=== PATIENT | male | born 1975 | race Caucasian/White ===

== ENCOUNTER 2021-12-13 14:09 | Emergency (ER) | payer SELFPAY ==
--- OUTSIDE RECORDS SUMMARY | 2021-12-13 14:12 | XMS REPORT | Continuity of Care Document ---
:1975 Author Organization [facility] t Address [address] [place] [address] Care Team Providers Name Role Phone Pcp, Does Not Have A Primary Care Physician MARTINEZ Attending Clinician Unavailable Green HEEL SPRAY[employer] FIRST Attending Clinician Doctor Unassigned, Name Attending Clinician Unavailable Problems Condition Condition Condition Status Onset Resolution Last Treating Co mments Source Name Details Category Date Date Treatment Clinician Date No known No known Disease Unive rs active active ity of problems problems [facility] Allergies, Adverse Reactions, Alerts Allergy Allergy Status Severity Reaction(s) Onset Inactive Treating Comm ents Source Name Type Date Date Clinician MUSTARD DRUG Active Anaphylaxis Univ ers INGREDI 5-12 ity of 00:00: [place] 00 Medical Branch Mustard Propensi Active Anaphylaxis Un roz ty to 5-12 ity of adverse 00:00: [place] reaction 00 Medical s Branch Social History Social Habit Start Date Stop Date Quantity Comments Source Exposure to Not sure [facility] SARS-CoV-2 (event) Medica l Branch Sex Assigned At [birth year] [facility] 00:00:00 00:00:00 Medical Branch Smoking Status Start Date Stop Date Source Unknown if ever smoked [facility] Medical Branch Medications Ordered Filled Start Stop Current Ordering Indication Dosage Frequency Signature Comments Components Source Medication Medication Date Date Medication? Clinician (SIG) Name Name ibuprofen Yes 800mg Take 1 Unive rs 800 mg 3-28 tablet by ity of tablet 00:00: mouth [place] 00 every 6 Medical (six) Branch hours as needed for Pain unrelieved by Tylenol or Temp > 38.5 C. cephALEXin 2017-0 Yes 500mg Take 1 Univ ers (KEFLEX) 3-28 capsule by ity o f 500 mg 00:00: mouth 4 [place] capsule 00 (four) Medical times Branch daily. ibuprofen 2017-0 Yes 800mg Take 1 Unive rs 800 mg 3-28 tablet by ity of tablet 00:00: mouth [place] 00 every 6 Medical (six) Branch hours as needed for Pain unrelieved by Tylenol or Temp > 38.5 C. cephALEXin 2017-0 Yes 500mg Take 1 Univ ers (KEFLEX) 3-28 capsule by ity o f 500 mg 00:00: mouth 4 [place] capsule 00 (four) Medical times Branch daily. ibuprofen 2017-0 Yes 600mg Take 1 Unive rs 600 mg 1-28 tablet by ity of tablet 00:00: mouth 3 00 (three) Medical times Branch daily with meals. traMADOL 50 2016-0 Yes 50mg Take 1 Univ ers mg tablet 1-28 tablet by ity o f 00:00: mouth [place] 00 every 6 Medical (six) Branch hours as needed for Pain (scale 4-6). ibuprofen 2017-0 Yes 600mg Take 1 Unive rs 600 mg 1-28 tablet by ity of tablet 00:00: mouth 3 [place] 00 (three) Medical times Branch daily with meals. traMADOL 50 2016-0 Yes 50mg Take 1 Univ ers mg tablet 1-28 tablet by ity o f 00:00: mouth [place] 00 every 6 Medical (six) Branch hours as needed for Pain (scale 4-6). Vital Signs Vital Name Observation Time Observation Value Comments Source Systolic blood 2021-11-03 02:38:00 135 mm[Hg] Univer sity [facility] Diastolic blood 2021-11-03 02:38:00 80 mm[Hg] Unive rsity [facility] Heart rate 2021-11-03 02:38:00 90 /min [facility] Body temperature 2021-11-03 02:38:00 36.61 Farzana [facility] Respiratory rate 2021-11-03 02:38:00 20 /min [facility] Body height 2021-11-03 02:38:00 180.3 cm [facility] Body weight 2021-11-03 02:38:00 94.394 kg Universi [facility] BMI 2021-11-03 02:38:00 29.02 kg/m2 [facility] Oxygen saturation in 2021-11-03 02:38:00 99 /min [facility] Arterial blood by [facility] [place] [place] Pulse oximetry [place] Procedures Procedure Date / Time Performed Performing Clinician Chris rose POCT RAPID FLU A AND 2021-11-03 02:40:00 Chelsea Gray [facility] B TEST [facility] CONSENT/REFUSAL FOR 2021-11-03 02:28:35 Doctor Unassigned, No Un [facility] DIAGNOSIS AND Name [facility] TREATMENT Encounters Start End Encounter Admission Attending Care Care Encounter Source Date/Time Date/Time Type Type Clinicians Facility Department ID 2021-11-02 2021-11-02 Outpatient R MARTINEZ [facility] [id number] Univers 20:40:00 20:53:44 CHELSEA ity [facility] [place] [facility] 2021-11-02 2021-11-02 Urgent Martinez [facility] [id number] Univers 20:29:16 20:53:44 Care [facility] [id number] it y of [place] [id number] Agustin as DAO?BLEA [phone] [address] MEDICAL OFFICE BUILDING 2021-11-02 2021-11-02 Orders Doctor MARGUERITE [id number] Univers 00:00:00 00:00:00 Only Unassigned, [place]ANT[place] [id number] ity of [place] [facility] [id number] Agustin as [phone] [facility] 009 Branch Results Test Description Test Time Test Comments Results Result Comments Source POCT RAPID FLU A AND B TEST 2021-11-03 02:53:00 Test Item Value Reference Range Interpretation Comme nts POCT INFLUENZA A (test code = negative Negative - Negative 3840) POCT INFLUENZA B (test code = negative Negative - Negative 3841) SAHRA (test code = SAHRA) accurate development and interpretation of all internal controls Lab Interpretation (test code = Normal 16420-3) [facility]
--- NOTE | 2021-12-13 17:35 | RAD REPORT ---
EXAM DESCRIPTION: CT - Head Brain Wo Cont - 12/13/2021 5:26 pm CLINICAL HISTORY: head injury, steel press hit head, dizzy COMPARISON: No comparisons TECHNIQUE: All CT scans are performed using dose optimization technique as appropriate and may inclu de automated exposure control or mA/KV adjustment according to patient size. FINDINGS: No intracranial hemorrhage, hydrocephalus or extra-axial fluid collection.No areas of brai n edema or evidence of midline shift. The paranasal sinuses and mastoids are clear. The calvarium is intact. IMPRESSION: No acute intracranial abnormality.
--- NOTE | 2021-12-13 17:38 | ER ---
Nurse's Notes [facility] Name: Brian Dent Age: 45 yrs Sex: Male : 1975 Arrival Date: 12/13/2021 Time: 14:15 Bed 11 Private MD: Diagnosis: Unspecified injury of head, initial encounter Presentation: 12/13 14:35 Chief complaint: Patient states: approx 1 hour ago pt was at work and a stainless steal jh5 burger press fell on his head; pt has reddened scratch to forehead that does not extend into hairline. Pt states after the incident he became lightheaded and blurred vision that has since resolved; however pt endorses headache. Pt is aaox4, ambulatory without assistance, color is appropriate, speech is clear, respirations even and unlabored. Pt has no bleeding at this time. Coronavirus screen: Vaccine status: Patient reports being unvaccinated. doesn't believe in it Client denies travel out of the [place] in the last 14 days. At this time, the client does not indicate any symptoms associated with coronavirus-19. Ebola Screen: Patient negative for fever greater than or equal to 101.5 degrees Fahrenheit, and additional compatible Ebola Virus Disease symptoms Patient denies exposure to infectious person. Patient denies travel to an Ebola-affected area in the 21 days before illness onset. Mechanism of Injury: resulted from burger press came off shelf down onto patients head; controlled due to patient trying to get the press down himself. . Initial Sepsis Screen: Does the patient meet any 2 criteria? No. Patient's initial sepsis screen is negative. Does the patient have a suspected source of infection? No. Patient's initial sepsis screen is negative. Risk Assessment: Do you want to hurt yourself or someone else? Patient reports no desire to harm self or others. Onset of symptoms was December 13, 2021. 14:35 Method Of Arrival: Ambulatory [facility] 14:35 Acuity: JACQUIE 3 jh5 Triage Assessment: 14:39 General: Appears in no apparent distress. uncomfortable, unkempt, well developed, well jh5 nourished, Behavior is calm, cooperative, appropriate for age. Pain: Complains of pain in forehead, headache. Neuro: Level of Consciousness is awake, alert, obeys commands, Oriented to person, place, time, situation, Appropriate for age Moves all extremities. Full function Gait is steady, Speech is normal, Facial symmetry appears normal, Pupils are PERRLA, Reports blurred vision headache. Historical: - Allergies: 14:39 No Known Allergies; [facility] - PMHx: 14:39 Myocardial infarction; Hypertensive disorder; [facility] - Immunization history:: Adult Immunizations up to date. - Social history:: Smoking status: Patient reports the use of cigarette tobacco products, smokes one-half pack cigarettes per day. - Family history:: not pertinent. - Hospitalizations: : No recent hospitalization is reported. Screenin:41 Abuse screen: Denies threats or abuse. Denies injuries from another. Nutritional [facility] screening: No deficits noted. Tuberculosis screening: No symptoms or risk factors identified. Fall Risk None identified. Assessment: 17:13 General: Appears in no apparent distress. comfortable, Behavior is calm, cooperative, ld1 appropriate for age. Pain: Complains of pain in forehead Pain does not radiate. Pain currently is 8 out of 10 on a pain scale. Quality of pain is described as throbbing, Pain began suddenly, Is continuous. Neuro: Level of Consciousness is awake, alert, obeys commands, Oriented to person, place, time, situation. Cardiovascular: Capillary refill < 3 seconds Patient's skin is warm and dry. Respiratory: Airway is patent Respiratory effort is even, unlabored, Respiratory pattern is regular, symmetrical. GI: Abdomen is flat, non-distended. : No signs and/or symptoms were reported regarding the genitourinary system. EENT: No signs and/or symptoms were reported regarding the EENT system. Derm: No signs and/or symptoms reported regarding the dermatologic system. Musculoskeletal: No signs and/or symptoms reported regarding the musculoskeletal system. Vital Signs: 14:35 BP 134 / 91; Pulse 81; Resp 18; Temp 97.6; Pulse Ox 100% ; Weight 99.79 kg; Height 5 [facility] ft. 11 in. (180.34 cm); Pain 5/10; 17:13 BP 132 / 89; Pulse 86; Resp 18; Pulse Ox 100% on R/A; Pain 8/10; ld1 14:35 Body Mass Index 30.68 (99.79 kg, 180.34 cm) [facility] Mark Coma Score: 14:35 Eye Response: spontaneous(4). Verbal Response: oriented(5). Motor Response: obeys jh5 commands(6). Total: 15. 16:39 Eye Response: spontaneous(4). Verbal Response: oriented(5). Motor Response: obeys rn commands(6). Total: 15. 17:36 Eye Response: spontaneous(4). Verbal Response: oriented(5). Motor Response: obeys rn commands(6). Total: 15. ED Course: 14:15 Patient arrived in ED. as 14:39 Triage completed. jh5 14:41 Arm band placed on right wrist. jh5 16:24 Mitch Teague MD is Attending Physician. rn 17:13 Ina Crystal, RN is Primary Nurse. ld1 17:13 Patient has correct armband on for positive identification. Placed in gown. Bed in low ld1 position. Call light in reach. Side rails up X2. potline monitor on. Pulse ox on. NIBP on. Door closed. Noise minimized. Warm blanket given. 17:13 No provider procedures requiring assistance completed. ld1 17:26 CT Head Brain wo Cont In Process Unspecified. EDMS 17:47 Patient did not have IV access during this emergency room visit. ld1 Administered Medications: No medications were administered Outcome: 17:37 Discharge ordered by . rn 17:47 Discharged to home ambulatory. ld1 17:47 Condition: stable 17:47 Discharge instructions given to patient, Instructed on discharge instructions, follow up and referral plans. Demonstrated understanding of instructions, follow-up care. 17:47 Patient left the ED. ld1 Signatures: Dispatcher [employer] EDNJ Era Salas Roman, MD MD rn Dibbern, Lauren, RN RN ld1 Geeta Ross, DINAH RN jh5
--- NOTE | 2021-12-13 17:38 | EDPHYS ---
Physician Documentation [facility] Name: Brian Dent Age: 45 yrs Sex: Male : 1975 Arrival Date: 12/13/2021 Time: 14:15 Bed 11 Private MD: ED Physician Mitch Teague HPI: 12/13 16:39 This 45 yrs old Male presents to ER via Ambulatory with complaints of Closed Head rn Injury-Adult, Dizziness, Vision Problem. 16:39 The patient or guardian reports injury, pain. The complaints affect the top of head. rn Context of injury: The problem was sustained at work, resulted from a direct blow, a heavy object. Onset: The symptoms/episode began/occurred 3 hour(s) ago. Associated signs and symptoms: Loss of consciousness: This patient did not experience any loss of consciousness. Pertinent positives: dazed, headache, Pertinent negatives: patient denies any alcohol consumption, incontinence, neck pain, vomiting. Severity of symptoms: At their worst the symptoms were moderate, in the emergency department the symptoms have improved. The patient has not experienced similar symptoms in the past. The patient has not recently seen a physician. Patient reports at work, reaching for steel Press above his head on a shelf, fell directly onto head, reports headache and dizziness. States he felt dazed. No vomiting. No seizure. No loss of consciousness.. Historical: - Allergies: 14:39 No Known Allergies; jh5 - PMHx: 14:39 Myocardial infarction; Hypertensive disorder; jh5 - Immunization history:: Adult Immunizations up to date. - Social history:: Smoking status: Patient reports the use of cigarette tobacco products, smokes one-half pack cigarettes per day. - Family history:: not pertinent. - Hospitalizations: : No recent hospitalization is reported. ROS: 16:39 Constitutional: Negative for fever, chills, and weight loss, Eyes: Negative for injury, rn pain, redness, and discharge, ENT: Negative for injury, pain, and discharge, Neck: Negative for injury, pain, and swelling, Cardiovascular: Negative for chest pain, palpitations, and edema, Respiratory: Negative for shortness of breath, cough, wheezing, and pleuritic chest pain, Abdomen/GI: Negative for abdominal pain, nausea, vomiting, diarrhea, and constipation, MS/Extremity: Negative for injury and deformity, Skin: Negative for injury, rash, and discoloration, Neuro: Positive for headache and dizziness Exam: 16:39 Constitutional: This is a well developed, well nourished patient who is awake, alert, rn and in no acute distress. Head/Face: Normocephalic, small abrasion and contusion along the hairline mid forehead. No laceration. No skull depression. No active bleeding. Eyes: Pupils equal round and reactive to light, extra-ocular motions intact. Lids and lashes normal. Periorbital areas with no swelling, redness, or edema. Neuro: Awake and alert, GCS 15, oriented to person, place, time, and situation. Cranial nerves II-XII grossly intact. Motor strength 5/5 in all extremities. Sensory grossly intact. Cerebellar exam normal. Normal gait. Vital Signs: 14:35 BP 134 / 91; Pulse 81; Resp 18; Temp 97.6; Pulse Ox 100% ; Weight 99.79 kg; Height 5 jh5 ft. 11 in. (180.34 cm); Pain 5/10; 17:13 BP 132 / 89; Pulse 86; Resp 18; Pulse Ox 100% on R/A; Pain 8/10; ld1 14:35 Body Mass Index 30.68 (99.79 kg, 180.34 cm) jh5 Howe Coma Score: 14:35 Eye Response: spontaneous(4). Verbal Response: oriented(5). Motor Response: obeys jh5 commands(6). Total: 15. 16:39 Eye Response: spontaneous(4). Verbal Response: oriented(5). Motor Response: obeys rn commands(6). Total: 15. 17:36 Eye Response: spontaneous(4). Verbal Response: oriented(5). Motor Response: obeys rn commands(6). Total: 15. MDM: 16:24 Patient medically screened. rn 17:36 Differential diagnosis: Contusion of Hematoma on Intracranial bleed- Concussion rn cerebral contusion. Data reviewed: vital signs, nurses notes, radiologic studies, CT scan, and as a result, I will discharge patient. Counseling: I had a detailed discussion with the patient and/or guardian regarding: the historical points, exam findings, and any diagnostic results supporting the discharge/admit diagnosis, radiology results, the need for outpatient follow up, to return to the emergency department if symptoms worsen or persist or if there are any questions or concerns that arise at home. Special discussion: Based on the patient's history, exam and DX evaluation, there is no indication for emergent intervention or inpatient [place]. It is understood by the patient/guardian that if the SXs persist or worsen they need to return immediately for re-evaluation. I discussed with the patient/guardian in detail that at this point there is no indication for admission to the hospital. It is understood, however, that if the symptoms persist or worsen the patient needs to return immediately for re-evaluation. ED course: CT head negative for acute finding. Sent home with return precautions.. 12/13 16:38 Order name: CT Head Brain wo Cont; Complete Time: 17:36 rn Administered Medications: No medications were administered Disposition Summary: 12/13/21 17:37 Discharge Ordered Location: Home rn Problem: new rn Symptoms: have improved rn Condition: Stable rn Diagnosis - Unspecified injury of head, initial encounter rn Followup: rn - With: Private Physician - When: As needed - Reason: Recheck today's complaints, Re-evaluation by your physician Discharge Instructions: - Discharge Summary Sheet rn - Concussion, Adult rn - Head Injury, Adult rn Forms: - Medication Reconciliation Form rn - Thank You Letter rn - Antibiotic technology internship - Prescription Opioid Use rn Signatures: Dispatcher [employer] Mitch Sesay MD MD rn Rees, Jessica RN RN jh5
[2021-12-13 18:05] VITALS: TEMP 97.6; O2SAT 100
[2021-12-13 18:06] VITALS: BP 132/89
== END 2021-12-13 17:47 | disposition home or self-care (01) ==
LOC: ER 14:09
DX: S09.90XA Unspecified injury of head, initial encounter (principal); W22.8XXA Striking against or struck by other objects, initial encounter; Y92.89 Other specified places as the place of occurrence of the external cause; Y99.8 Other external cause status; I10 Essential (primary) hypertension; F17.210 Nicotine dependence, cigarettes, uncomplicated
CPT/HCPCS: 70450; 99284

== ENCOUNTER 2022-01-28 10:25 | Emergency (ER) | payer SELFPAY ==
--- OUTSIDE RECORDS SUMMARY | 2022-01-28 10:27 | XMS REPORT | Continuity of Care Document ---
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 Doctor Unassigned, Name Attending Clinician Unavailable Problems Condition Condition Condition Status Onset Resolution Last Treating Co mments Source Name Details Category Date Date Treatment Clinician Date No known No known Disease Unive rs active active ity of problems problems [facility] Allergies, Adverse Reactions, Alerts Allergy Allergy Status [...] Quantity Comments Source Exposure to Not sure [facility] SARS-CoV-2 (event) Medica l Branch Sex Assigned At [birth year] [facility] 00:00:00 00:00:00 Medical Branch Smoking Status Start Date Stop Date Source Unknown if ever smoked [facility] Medications Ordered Filled Start Stop Current Ordering Indication Dosage Frequency Signature Comments Components Source Medication Medication Date Date Medication? Clinician (SIG) Name Name ibuprofen Yes 800mg Take 1 Unive rs 800 mg 3-28 tablet by ity of tablet 00:00: mouth [place] 00 every 6 Medical (six) Branch hours as needed for Pain unrelieved by Tylenol or Temp > 38.5 C. cephALEXin Yes 500mg Take 1 Univ ers (KEFLEX) [...] as needed for Pain (scale 4-6). ibuprofen 2016-0 Yes 600mg Take 1 Unive rs 600 [...] blood 2021-11-03 02:38:00 135 mm[Hg] Univer sity [facility] Diastolic blood 2021-11-03 02:38:00 80 mm[Hg] [facility] Heart rate 2021-11-03 02:38:00 90 /min [facility] Body temperature 2021-11-03 02:38:00 36.61 Farzana [facility] Respiratory rate 2021-11-03 02:38:00 20 /min [facility] Body height 2021-11-03 02:38:00 180.3 cm [facility] Body weight 2021-11-03 02:38:00 94.394 kg [facility] BMI 2021-11-03 02:38:00 29.02 kg/m2 [facility] Oxygen saturation in 2021-11-03 02:38:00 99 /min University Arterial blood by [facility] Pulse oximetry [place] Procedures Procedure Date / Time Performed Performing Clinician Chris e POCT RAPID FLU A AND 2021-11-03 02:40:00 MartinezChelsea [facility] ity [facility] CONSENT/REFUSAL FOR 2021-11-03 02:28:35 Doctor Unassigned, No Un [facility] DIAGNOSIS AND Name Medical Branch TREATMENT Encounters Start End Encounter Admission Attending Care Care Encounter Source Date/Time Date/Time Type Type Clinicians Facility Department ID 2021-11-02 2021-11-02 Outpatient R MARTINEZ [facility] [id number] Univers 20:40:00 20:53:44 CHELSEA ity [facility] 2021-11-02 2021-11-02 Urgent Martinez [facility] [id number] Univers 20:29:16 20:53:44 Care [facility] [id number] it y of [place] [id number] Agustin as DAO?BLEA [id number] Mt dical [address] MEDICAL OFFICE BUILDING 2021-11-02 2021-11-02 Orders Doctor MARGUERITE [id number] Univers 00:00:00 00:00:00 Only Unassigned, SANTA [id number] ity of [place] [facility] [id number] Agustin as [id number] [facility] 009 Branch Results Test Description Test [...] controls Lab Interpretation (test code = Normal 53536-5) [facility]
[2022-01-28] MEDS ORDERED: LIDOCAINE 1% MPF 30 ML VIAL ONE (10:47)
[2022-01-28] MEDS ORDERED: TETANUS & DIPHTHERIA TOX,ADULT 0.5 ML VIAL ONE (10:48)
--- NOTE | 2022-01-28 11:42 | ER ---
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 Coronavirus screen: Vaccine status: Patient reports being unvaccinated. Client denies travel out of the [place] in the last 14 days. At this time, the client does not indicate any symptoms associated with coronavirus-19. Ebola Screen: Patient denies travel to an Ebola-affected area in the 21 days before illness onset. Initial Sepsis Screen: Does the patient meet any 2 criteria? No. Patient's initial sepsis screen is negative. Does the patient have a suspected source of infection? Yes: Skin breakdown/wound. Risk Assessment: Do you want to hurt yourself or someone else? Patient reports no desire to harm self or others. Onset of symptoms was January 28, 2022. 10:36 Method Of Arrival: Ambulatory ll1 10:36 Acuity: JACQUIE 4 ll1 Triage Assessment: 10:35 General: Appears uncomfortable, Behavior is calm, cooperative, appropriate for age. ll1 Pain: Complains of pain in L thumb Quality of pain is described as aching, throbbing. Neuro: No deficits noted. Cardiovascular: No deficits noted. Respiratory: No deficits noted. Derm: Reports laceration L thumb. Historical: - Allergies: 10:35 Ibuprofen; ll1 10:35 Mustard; ll1 - PMHx: 10:35 Hypertensive disorder; Myocardial infarction; Hypercholesterolemia; heart condition; ll1 - PSHx: 10:35 Appendectomy; ll1 - Immunization history:: Client reports having NOT received the Covid vaccine. Last tetanus immunization: unknown. - Social history:: Smoking status: Patient reports the use of cigarette tobacco products, smokes one-half pack cigarettes per day. Screenin:11 Abuse screen: Denies threats or abuse. Denies injuries from another. Nutritional eo2 screening: No deficits noted. Tuberculosis screening: No symptoms or risk factors identified. Fall Risk None identified. Assessment: 11:07 General: Appears in no apparent distress. comfortable, Behavior is calm, cooperative. eo2 Pain: Complains of pain in left hand and dorsal aspect of proximal phalanx of left thumb. Neuro: Level of Consciousness is awake, alert, obeys commands, Oriented to person, place, time, situation, Denies dizziness, headache. Cardiovascular: No deficits noted. Reports Capillary refill < 3 seconds. Respiratory: No deficits noted. Airway is patent Trachea midline Respiratory effort is even, unlabored, Respiratory pattern is regular, symmetrical, Breath sounds are clear bilaterally. Derm: Wound noted Other: Laceration to left thumb Reports. Musculoskeletal: Circulation, motion, and sensation intact. Reports pain in left thumb. Vital Signs: 10:36 BP 172 / 77; Pulse 97; Resp 17; Temp 97.9; Pulse Ox 97% on R/A; Weight 97.52 kg; Height ll1 5 ft. 11 in. (180.34 cm); Pain 10/10; 11:10 BP 152 / 94; Pulse 82; Resp 15; Pulse Ox 97% ; Pain 10/10; eo2 10:36 Body Mass Index 29.99 (97.52 kg, 180.34 cm) ll1 ED Course: 10:26 Patient arrived in ED. ds1 10:28 Pernell Rinaldi MD is Attending Physician. jr11 10:28 Arm band placed on Patient placed in an exam room, on a stretcher. ll1 10:37 Triage completed. ll1 10:40 Jes Abrams RN is Primary Nurse. eo2 11:11 Patient has correct armband on for positive identification. Pulse ox on. NIBP on. Door eo2 closed. Noise minimized. 11:11 No provider procedures requiring assistance completed. Patient did not have IV access eo2 during this emergency room visit. 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 Exp: eo2 04/21/2023. Lot #: [id number]. } Route: IM; Site: left deltoid; 11:39 Follow up: Response: No adverse reaction eo2 Outcome: 11:34 Discharge ordered by . jrSandie 11:41 Discharged to home ambulatory. eo2 11:41 Condition: stable 11:41 Discharge instructions given to patient, Instructed on discharge instructions, follow up and referral plans. medication usage, Demonstrated understanding of instructions, follow-up care, medications, Prescriptions given X 1. 11:42 Patient left the ED. eo2 Signatures: Regla Amador ds1 Chon Blackwell RN RN ll1 Jes Abrams RN RN eo2 Pernell Rinaldi MD MD jr11
--- NOTE | 2022-01-28 11:42 | EDPHYS ---
Physician Documentation [facility] Name: Brian Dent Age: 46 yrs Sex: Male : 1975 Arrival Date: 01/28/2022 Time: 10:26 Bed 17 Private MD: ED Physician Pernell Rinaldi HPI: 01/28 10:37 This 46 yrs old Male presents to ER via Unassigned with complaints of Finger Laceration.jr11 10:37 This 46 yrs old Male presents to ER via Ambulatory with complaints of Finger Laceration.jr11 10:37 The patient has a laceration related to:. The laceration(s) is(are) located on the jr11 dorsal aspect of proximal phalanx of left thumb. Onset: The symptoms/episode began/occurred just prior to arrival. Associated signs and symptoms: The patient has no apparent associated signs or symptoms. Pt at work cut his thumb with knife, unknown tetanus . Historical: - Allergies: 10:35 Ibuprofen; ll1 10:35 Mustard; ll1 - PMHx: 10:35 Hypertensive disorder; Myocardial infarction; Hypercholesterolemia; heart condition; ll1 - PSHx: 10:35 Appendectomy; ll1 - Immunization history:: Client reports having NOT received the Covid vaccine. Last tetanus immunization: unknown. - Social history:: Smoking status: Patient reports the use of cigarette tobacco products, smokes one-half pack cigarettes per day. ROS: 10:37 Constitutional: Negative for fever, chills Eyes: Negative for injury, pain, redness, jr11 and discharge, ENT: Negative for injury, pain, and discharge, Neck: Negative for injury, pain, and swelling, Cardiovascular: Negative for chest pain, palpitations, and edema, Respiratory: Negative for shortness of breath, cough Abdomen/GI: Negative for abdominal pain, nausea, vomiting Back: Negative for injury and pain, MS/Extremity: Negative for injury and deformity. 10:37 Skin: Positive for laceration(s), Negative for abrasions, burn. Exam: 10:37 Constitutional: This is a well developed, well nourished patient who is awake, alert, jr11 and in no acute distress. Head/Face: Normocephalic, atraumatic. Eyes: Extra-ocular motions intact. Lids and lashes normal. Conjunctiva and sclera are non-icteric and not injected. Cornea within normal limits. Periorbital areas with no swelling, redness, or edema. ENT: Nares patent. No nasal discharge, no septal abnormalities noted. Oropharynx with no redness, swelling, or masses, exudates, or evidence of obstruction, uvula midline. Mucous membranes moist. Neck: Trachea midline, no thyromegaly or masses palpated, and no cervical lymphadenopathy. Supple, full range of motion without nuchal rigidity, or vertebral point tenderness. No Meningismus. Chest/axilla: Normal chest wall appearance and motion. Nontender with no deformity. No lesions are appreciated. Cardiovascular: Regular rate and rhythm with a normal S1 and S2. No gallops, murmurs, or rubs. Normal PMI, no JVD. No pulse deficits. Respiratory: Lungs have equal breath sounds bilaterally, clear to auscultation and percussion. No rales, rhonchi or wheezes noted. No increased work of breathing, no retractions or nasal flaring. Abdomen/GI: Soft, non-tender, with normal bowel sounds. No distension or tympany. No guarding or rebound. No evidence of tenderness throughout. 10:37 Skin: 3.5cm superficial laceration dorsum L thumb, FROM, N/V intact . Vital Signs: 10:36 BP 172 / 77; Pulse 97; Resp 17; Temp 97.9; Pulse Ox 97% on R/A; Weight 97.52 kg; Height ll1 5 ft. 11 in. (180.34 cm); Pain 10/10; 11:10 BP 152 / 94; Pulse 82; Resp 15; Pulse Ox 97% ; Pain 10/10; eo2 10:36 Body Mass Index 29.99 (97.52 kg, 180.34 cm) ll1 Laceration: 10:37 Wound Repair of 3.5cm ( 1.4in ) subcutaneous laceration to dorsal aspect of proximal jr11 phalanx of left thumb. Distal neuro/vascular/tendon intact. Wound prep: Simple cleansing. Skin closed with 4-0 Prolene using simple sutures and sterile technique. Skin closed with 4 1-0 Prolene using simple sutures and sterile technique. Dressed with 4x4's. Patient tolerated well. MDM: 10:34 Patient medically screened. jr11 10:37 Differential diagnosis: superficial laceration. Data reviewed: vital signs, nurses jr11 notes. ED course: tetanus updated, lac repair, strong return precautions . 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 Exp: eo2 04/21/2023. Lot #: [id number]. } Route: IM; Site: left deltoid; 11:39 Follow up: Response: No adverse reaction eo2 Disposition Summary: 01/28/22 11:34 Discharge Ordered Location: Home [facility] Condition: Stable [facility] Diagnosis - Hand Laceration/ Open wound of hand jr11 Followup: jr - With: Private Physician - When: 7 - 10 days - Reason: for suture removal Discharge Instructions: - Discharge Summary Sheet 11 - Laceration Care, Adult [facility] Forms: - Medication Reconciliation Form 11 - Thank You Letter jr11 - Antibiotic Education 11 - Prescription Opioid Use [facility] Prescriptions: - Cephalexin 500 mg Oral Capsule - take 1 capsule by ORAL route every 8 hours for 10 days; 30 capsule; Refills: 0, jr11 Product Selection Permitted Signatures: Chon Blackwell RN RN ll1 Jes Abrams RN RN eo2 Pernell Rinaldi MD MD jr11 Corrections: (The following items were deleted from the chart) 11:32 10:37 Wound Repair of 3.5cm ( 1.4in ) subcutaneous laceration to dorsal aspect of jr11 proximal phalanx of left thumb. Distal neuro/vascular/tendon intact. Anesthesia: Local anesthetic administered with 1% lidocaine. Wound prep: Simple cleansing. Skin closed with 4-0 Prolene using simple sutures and sterile technique. Dressed with 4x4's. Patient tolerated well. 11
[2022-01-28 11:56] VITALS: TEMP 97.9; O2SAT 97
[2022-01-28 11:58] VITALS: BP 152/94
== END 2022-01-28 11:42 | disposition home or self-care (01) ==
LOC: ER 10:25
PROC: 0JQK0ZZ Repair Left Hand Subcutaneous Tissue and Fascia, Open Approach (ICD-10-PCS; principal; 2022-01-28)
DX: S61.012A Laceration without foreign body of left thumb without damage to nail, initial encounter (principal); W26.0XXA Contact with knife, initial encounter; Y92.89 Other specified places as the place of occurrence of the external cause; Y99.8 Other external cause status; F17.210 Nicotine dependence, cigarettes, uncomplicated; Z23 Encounter for immunization; Z88.6 Allergy status to analgesic agent; Z91.018 Allergy to other foods
CPT/HCPCS: 90471; 90714; 99283

== ENCOUNTER 2022-03-06 16:18 | Emergency (ER) | payer SELFPAY ==
--- OUTSIDE RECORDS SUMMARY | 2022-03-06 16:21 | XMS REPORT | Continuity of Care Document ---
:1975 Author Organization [facility] t Address [address] [place] [address] Care Team Providers Name Role Phone Pcp, Does Not Have A Primary Care Physician MARTINEZ Attending Clinician Unavailable Martinez DIRECTOR OF CODING Attending Clinician Doctor Unassigned, Name Attending Clinician Unavailable Problems Condition Condition Condition Status Onset Resolution Last Treating Co mments Source Name Details Category Date Date Treatment Clinician Date No known No known Disease Unive rs active active ity of problems problems [facility] Allergies, Adverse Reactions, Alerts Allergy Allergy Status [...] Quantity Comments Source Exposure to Not sure [facility] SARS-CoV-2 (event) Medica l Branch Sex Assigned At [birth year] [facility] 00:00:00 00:00:00 Medical Branch Smoking Status Start Date Stop Date Source Unknown if ever smoked [facility] Medications Ordered Filled Start Stop Current Ordering Indication Dosage Frequency Signature Comments Components Source Medication Medication Date Date Medication? Clinician (SIG) Name Name ibuprofen Yes 800mg Take 1 Unive rs 800 mg 3-28 tablet by ity of tablet 00:00: mouth [place] 00 every 6 Medical (six) Branch hours [...] blood 2021-11-03 02:38:00 135 mm[Hg] Univer sity [facility] Diastolic blood 2021-11-03 02:38:00 80 mm[Hg[facility] Heart rate 2021-11-03 02:38:00 90 /min [facility] Body temperature 2021-11-03 02:38:00 36.61 Farzana [facility] Respiratory rate 2021-11-03 02:38:00 20 /min [facility] Body height 2021-11-03 02:38:00 180.3 cm [facility] Body weight 2021-11-03 02:38:00 94.394 kg [facility] BMI 2021-11-03 02:38:00 29.02 kg/m2 [facility] Oxygen saturation in 2021-11-03 02:38:00 99 /min [facility] Arterial blood by [facility] Pulse oximetry [place] Procedures Procedure Date / Time Performed Performing Clinician Chris e POCT RAPID FLU A AND 2021-11-03 02:40:00 [facility] ity [facility] B [facility] CONSENT/REFUSAL FOR 2021-11-03 02:28:35 Doctor Unassigned, No Un [facility] DIAGNOSIS AND Name Medical Branch TREATMENT Encounters Start End Encounter Admission Attending Care Care Encounter Source Date/Time Date/Time Type Type Clinicians Facility Department ID 2021-11-02 2021-11-02 Outpatient R MARTINEZ [facility] [id number] [facility] 20:40:00 20:53:44 CHELSEA ity [facility] 2021-11-02 2021-11-02 Urgent Martinez [facility] [id number] Univers 20:29:16 20:53:44 Care [facility] [id number] it y of [place] [id number] Agustin as DAO?BLEA [phone] Nm dical [address] MEDICAL OFFICE BUILDING 2021-11-02 2021-11-02 Orders Doctor MARGUERITE [id number] Univers 00:00:00 00:00:00 Only Unassigned, [place] [id number] ity of [facility] [id number] Agustin as [phone] [facility] 009 Branch Results Test Description Test Time [...] controls Lab Interpretation (test code = Normal 40158-3) [facility]
[2022-03-06] MEDS ORDERED: MORPHINE 4 MG/ML SYR ONE (17:08)
[2022-03-06] MEDS ORDERED: NA CHLORIDE 0.9% 1,000 ML ONE (17:09)
[2022-03-06] MEDS ORDERED: FAMOTIDINE 20 MG/2 ML VIAL IV ONE (17:09)
[2022-03-06] MEDS ORDERED: ONDANSETRON 4 MG/2 ML VIAL ONE (17:09)
[2022-03-06 17:17] LABS: Absolute Lymphocytes (CBC) 3.6 K/uL (0.7-4.9); Hematocrit 45.4 % (39.6-49.0); Lymphocytes % 27.3 % (15.3-44.8); MPV 9.8 fL (7.6-11.3); RBC Red Blood Cell Count 5.04 M/uL (4.33-5.43)
[2022-03-06 17:34] LABS: ALT/SGPT 22 U/L (12-78); AST/SGOT 11 U/L (15-37); Albumin 3.4 g/dL (3.4-5.0); Alkaline Phosphatase 95 U/L (45-117); BUN Blood Urea Nitrogen 17 mg/dL (7-18); Bicarbonate 23 mmol/L (21-32); Bilirubin Total 0.2 mg/dL (0.2-1.0); Glucose Level 103 mg/dL (74-106); Lipase 119 U/L (73-393); Potassium 3.6 mmol/L (3.5-5.1); Protein, Total 7.1 g/dL (6.4-8.2); Sodium Level 139 mmol/L (136-145)
--- NOTE | 2022-03-06 17:34 | RAD REPORT ---
EXAM DESCRIPTION: US - Abdomen Exam Limited - 03/06/2022 5:26 pm CLINICAL HISTORY: EPIGASTRIC PAIN COMPARISON: No comparisons FINDINGS: The gallbladder demonstrates no gallstones. No pericholecystic fluid or gallbladder wall t hickening. The common bile duct is normal measuring 2 mm. The liver demonstrates no findings of intrahepatic biliary dilatation. IMPRESSION: Unremarkable examination.
--- NOTE | 2022-03-06 18:03 | RAD REPORT ---
EXAM DESCRIPTION: CTAbdomen Pelvis W Contrast - 03/06/2022 5:51 pm CLINICAL HISTORY: Abdominal pain. ABD PAIN COMPARISON: No comparisons TECHNIQUE: Biphasic CT imaging of the abdomen and pelvis was performed with 100 ml non-ionic IV cont rast. All CT scans are performed using dose optimization technique as appropriate and may include automated exposure control or mA/KV adjustment according to patient size. FINDINGS: The lung bases are clear. The liver, spleen, pancreas, adrenal glands and kidneys are within normal limits. No bowel obstruction, free air, free fluid or abscess. Appendectomy. No evidence of significant lym phadenopathy. No suspicious bony findings. IMPRESSION: No acute intra-abdominal or pelvic finding.
[2022-03-06] MEDS ORDERED: LIDOCAINE 1% W/EPI 1:100,000 MDV 50 ML VIAL ONE (18:27)
[2022-03-06] MEDS ORDERED: MAGNES/ALUMIN/SIMET 30ML UCUP ONE (18:27)
--- NOTE | 2022-03-06 18:41 | ER ---
Nurse's Notes [facility] Name: Brian Dent Age: 46 yrs Sex: Male : 1975 Arrival Date: 03/06/2022 Time: 16:19 Bed 8 Private MD: Diagnosis: Abdominal pain, unspecified Presentation: 03/06 16:45 Chief complaint: Patient states: he has been having abdominal pain for approx one ap3 month. Patient states the pain gets worse after he eats. Patient denies nausea and vomiting but reports diarrhea. Coronavirus screen: At this time, the client does not indicate any symptoms associated with coronavirus-19. Ebola Screen: No symptoms or risks identified at this time. Initial Sepsis Screen: Does the patient meet any 2 criteria? No. Patient's initial sepsis screen is negative. Does the patient have a suspected source of infection? No. Patient's initial sepsis screen is negative. Risk Assessment: Do you want to hurt yourself or someone else? Patient reports no desire to harm self or others. Onset of symptoms was February 03, 2022. 16:45 Method Of Arrival: Ambulatory ap3 16:45 Acuity: JACQUIE 3 ap3 Triage Assessment: 16:46 General: Appears in no apparent distress. Behavior is calm, cooperative, appropriate ap3 for age. Pain: Complains of pain in abdomen Pain began gradually, over the last month. Neuro: Level of Consciousness is awake, alert, obeys commands, Oriented to person, place, time, situation, Appropriate for age Gait is steady, Speech is normal. Cardiovascular: Patient's skin is warm and dry. Respiratory: Airway is patent Respiratory effort is even, unlabored. GI: Reports lower abdominal pain, upper abdominal pain, diarrhea, Patient currently denies nausea, vomiting. Historical: - Allergies: 16:46 Ibuprofen; ap3 16:46 Mustard; ap3 - PMHx: 16:46 Heart condition; Hypercholesterolemia; Hypertensive disorder; Myocardial infarction; ap3 - PSHx: 16:46 Appendectomy; ap3 - Immunization history:: Client reports receiving the 1st dose of the Covid vaccine, Flu vaccine is not up to date. - Social history:: Smoking status: Patient reports the use of cigarette tobacco products, smokes one-half pack cigarettes per day. Screenin:47 Abuse screen: Denies threats or abuse. Nutritional screening: No deficits noted. ap3 Tuberculosis screening: No symptoms or risk factors identified. 17:00 Fall Risk None identified. jh6 Assessment: 17:00 GI: Bowel sounds present X 4 quads. Abd is soft X 4 quads. jh6 17:15 Reassessment: No changes from previously documented assessment. Patient and/or family jg9 updated on plan of care and expected duration. Pain level reassessed. Patient is alert, oriented x 3, equal unlabored respirations, skin warm/dry/pink. 18:33 Reassessment: Patient and/or family updated on plan of care and expected duration. Pain jg9 level reassessed. Patient is alert, oriented x 3, equal unlabored respirations, skin warm/dry/pink. Patient states feeling better. 18:49 Reassessment: Patient is alert, oriented x 3, equal unlabored respirations, skin jh6 warm/dry/pink. Patient states feeling better. Pain: Denies pain. Vital Signs: 16:45 BP 147 / 92; Pulse 83; Resp 17; Temp 98.8; Pulse Ox 96% ; Weight 99.79 kg; Height 5 ft. ap3 11 in. (180.34 cm); Pain 10/10; 17:10 BP 150 / 78; Pulse 86; Resp 18 S; Pulse Ox 96% on R/A; Pain 9/10; jg9 17:30 BP 123 / 80; Pulse 80; Resp 20 S; Pulse Ox 96% on R/A; jg9 18:25 BP 172 / 101; Pulse 69; Resp 14 S; Pulse Ox 97% on R/A; Pain 7/10; jg9 16:45 Body Mass Index 30.68 (99.79 kg, 180.34 cm) ap3 ED Course: 16:19 Patient arrived in ED. as 16:43 See Strauss, ZORAIDA is PHCP. pm1 16:43 Hernán Friend MD is Attending Physician. pm1 16:46 Triage completed. ap3 16:47 Arm band placed on left wrist. ap3 16:51 Shamika Real, DINAH is Primary Nurse. jg9 17:00 Bed in low position. Call light in reach. Side rails up X 1. jh6 17:05 Inserted saline lock: 20 gauge in right antecubital area, using aseptic technique. jg9 Blood collected. 17:27 US Abdomen Limited In Process Unspecified. EDMS 17:53 CT Abd/Pelvis - IV Contrast Only In Process Unspecified. EDMS 18:50 No provider procedures requiring assistance completed. 6 18:51 IV discontinued, intact, bleeding controlled, No redness/swelling at site. Pressure 6 dressing applied. Administered Medications: 17:13 Drug: NS 0.9% 1000 ml Route: IV; Rate: 1 bolus; Site: right antecubital; j9 17:14 Drug: Pepcid (famotidine) 20 mg Route: IVP; Site: right antecubital; jg9 17:55 Follow up: Response: No adverse reaction j9 17:15 Drug: Zofran (Ondansetron) 4 mg Route: IVP; Site: right antecubital; j9 17:55 Follow up: Response: No adverse reaction; Nausea is decreased j9 17:15 Drug: morphine 4 mg {Note: RASS-0.} Route: IVP; Site: right antecubital; j9 17:55 Follow up: Response: No adverse reaction; Pain is decreased j9 18:52 Follow up: Response: Pain is decreased [facility] 18:33 Drug: GI Cocktail without - (Maalox Suspension 30 ml, Lidocaine Liquid 2 % 15 jg9 ml) Route: PO; 18:51 Follow up: Response: Pain is decreased [facility] Outcome: 18:40 Discharge ordered by . pm1 18:51 Discharged to home ambulatory. 6 18:51 Condition: improved 18:51 Discharge instructions given to patient. 19:00 Patient left the ED. [facility] Signatures: Dispatcher [employer] EDMS Era Salas Patrick, DIAGNOSTIC TECHNICIAN DIAGNOSTIC TECHNICIAN pm1 Jodi Waggoner RN RN ap3 Shamika Hughes RN RN jh6 Shamika Real RN RN jg9
--- NOTE | 2022-03-06 18:41 | EDPHYS ---
Physician Documentation [facility] Name: Brian Dent Age: 46 yrs Sex: Male : 1975 Arrival Date: 03/06/2022 Time: 16:19 Bed 8 Private MD: ED Physician Hernán Friend HPI: 03/06 16:59 This 46 yrs old Male presents to ER via Ambulatory with complaints of Abdominal Pain. pm1 16:59 The patient presents with abdominal pain in the epigastric area. Onset: The pm1 symptoms/episode began/occurred 1 month(s) ago. The symptoms do not radiate. Associated signs and symptoms: none. The symptoms are described as achy. Modifying factors: the symptoms are aggravated by food. Severity of pain: in the emergency department the pain is unchanged. The patient has not recently seen a physician. Historical: - Allergies: 16:46 Ibuprofen; ap3 16:46 Mustard; ap3 - PMHx: 16:46 Heart condition; Hypercholesterolemia; Hypertensive disorder; Myocardial infarction; ap3 - PSHx: 16:46 Appendectomy; ap3 - Immunization history:: Client reports receiving the 1st dose of the Covid vaccine, Flu vaccine is not up to date. - Social history:: Smoking status: Patient reports the use of cigarette tobacco products, smokes one-half pack cigarettes per day. ROS: 16:59 Constitutional: Negative for fever, chills, and weight loss, Cardiovascular: Negative pm1 for chest pain, palpitations, and edema, Respiratory: Negative for shortness of breath, cough, wheezing, and pleuritic chest pain. 16:59 Back: Negative for injury and pain, MS/Extremity: Negative for injury and deformity, Skin: Negative for injury, rash, and discoloration, Neuro: Negative for headache, weakness, numbness, tingling, and seizure. 16:59 Abdomen/GI: Positive for abdominal pain, Negative for nausea, vomiting, and diarrhea, constipation. 16:59 All other systems are negative. Exam: 16:59 Constitutional: This is a well developed, well nourished patient who is awake, alert, pm1 and in no acute distress. Head/Face: Normocephalic, atraumatic. Cardiovascular: Regular rate and rhythm with a normal S1 and S2. No gallops, murmurs, or rubs. Normal PMI, no JVD. No pulse deficits. Respiratory: Lungs have equal breath sounds bilaterally, clear to auscultation and percussion. No rales, rhonchi or wheezes noted. No increased work of breathing, no retractions or nasal flaring. 16:59 Back: No spinal tenderness. No costovertebral tenderness. Full range of motion. Skin: Warm, dry with normal turgor. Normal color with no rashes, no lesions, and no evidence of cellulitis. MS/ Extremity: Pulses equal, no cyanosis. Neurovascular intact. Full, normal range of motion. 16:59 Abdomen/GI: Inspection: abdomen appears normal, Palpation: soft, in all quadrants, moderate abdominal tenderness, in the epigastric area. 16:59 Neuro: Exam negative for acute changes, Orientation: is normal, Mentation: is normal, Motor: is normal, moves all fours. Vital Signs: 16:45 BP 147 / 92; Pulse 83; Resp 17; Temp 98.8; Pulse Ox 96% ; Weight 99.79 kg; Height 5 ft. ap3 11 in. (180.34 cm); Pain 10/10; 17:10 BP 150 / 78; Pulse 86; Resp 18 S; Pulse Ox 96% on R/A; Pain 9/10; jg9 17:30 BP 123 / 80; Pulse 80; Resp 20 S; Pulse Ox 96% on R/A; jg9 18:25 BP 172 / 101; Pulse 69; Resp 14 S; Pulse Ox 97% on R/A; Pain 7/10; jg9 16:45 Body Mass Index 30.68 (99.79 kg, 180.34 cm) ap3 MDM: 16:49 Patient medically screened. pm1 17:38 Data reviewed: vital signs. Data interpreted: Pulse oximetry: on room air is 96 %. pm1 Interpretation: normal. 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 03/06 16:57 Order name: CBC with Diff; Complete Time: 17:33 pm1 03/06 16:57 Order name: CMP; Complete Time: 17:36 pm1 03/06 16:57 Order name: Lipase; Complete Time: 17:36 pm1 03/06 16:57 Order name: CT Abd/Pelvis - IV Contrast Only; Complete Time: 18:07 pm1 03/06 17:01 Order name: US Abdomen Limited; Complete Time: 17:36 pm1 03/06 16:57 Order name: IV Saline Lock; Complete Time: 17:14 pm1 03/06 16:57 Order name: Labs collected and sent; Complete Time: 17:14 pm1 Administered Medications: 17:13 Drug: NS 0.9% 1000 ml Route: IV; Rate: 1 bolus; Site: right antecubital; jg9 17:14 Drug: Pepcid (famotidine) 20 mg Route: IVP; Site: right antecubital; jg9 17:55 Follow up: Response: No adverse reaction jg9 17:15 Drug: Zofran (Ondansetron) 4 mg Route: IVP; Site: right antecubital; jg9 17:55 Follow up: Response: No adverse reaction; Nausea is decreased jg9 17:15 Drug: morphine 4 mg {Note: RASS-0.} Route: IVP; Site: right antecubital; jg9 17:55 Follow up: Response: No adverse reaction; Pain is decreased jg9 18:52 Follow up: Response: Pain is decreased jh6 18:33 Drug: GI Cocktail without - (Maalox Suspension 30 ml, Lidocaine Liquid 2 % 15 jg9 ml) Route: PO; 18:51 Follow up: Response: Pain is decreased jh6 Disposition Summary: 03/06/22 18:40 Discharge Ordered Location: Home pm1 Problem: new pm1 Symptoms: have improved pm1 Condition: Stable pm1 Diagnosis - Abdominal pain, unspecified pm1 Followup: pm1 - With: Emergency Department - When: As needed - Reason: Worsening of condition Followup: pm1 - With: Private Physician - When: 2 - 3 days - Reason: Recheck today's complaints, Continuance of care, Re-evaluation by your physician Discharge Instructions: - Discharge Summary Sheet pm1 - Abdominal Pain, Adult pm1 Forms: - Medication Reconciliation Form pm1 - Thank You Letter pm1 - Antibiotic Education pm1 - Prescription Opioid Use pm1 Prescriptions: - Pepcid 20 mg Oral Tablet - take 1 tablet by ORAL route every 12 hours for 10 days; 20 tablet; Refills: 0, pm1 Product Selection Permitted - dicyclomine 20 mg Oral Tablet - take 1 tablet by ORAL route every 6 hours As needed; 20 tablet; Refills: 0, pm1 Product Selection Permitted Signatures: Dispatcher [employer] See Salazar NP FITTER MECHANIC pm1 Jodi Waggoner RN RN ap3 Shamika Real RN RN jg9 Shamika Hughes RN jh6
[2022-03-07 09:10] VITALS: TEMP 98.8
[2022-03-07 09:14] VITALS: BP 172/101; O2SAT 97
== END 2022-03-06 19:00 | disposition home or self-care (01) ==
LOC: ER 16:18
DX: R10.13 Epigastric pain (principal); I10 Essential (primary) hypertension; F17.210 Nicotine dependence, cigarettes, uncomplicated; Z88.6 Allergy status to analgesic agent; Z91.018 Allergy to other foods
CPT/HCPCS: 36415; 74177; 76705; 80053; 83690; 85025; 96374; 96375; 99284; J2405; J7030; Q9967

== ENCOUNTER 2022-03-24 08:56 | Emergency (ER) | payer SELFPAY ==
--- OUTSIDE RECORDS SUMMARY | 2022-03-24 08:59 | XMS REPORT | Continuity of Care Document ---
:1975 Author Organization [facility] t Address [address] [place] [address] Care Team Providers Name Role Phone Pcp, Does Not Have A Primary Care Physician MARTINEZ Attending Clinician Unavailable Green STAPLE FIBER WASHER Attending Clinician Doctor Unassigned, Name Attending Clinician Unavailable Problems Condition Condition Condition Status Onset Resolution Last Treating Co mments Source Name Details Category Date Date Treatment Clinician Date No known No known Disease Unive rs active active ity of problems problems [facility] Allergies, Adverse Reactions, Alerts Allergy Allergy Status Severity Reaction(s) Onset Inactive Treating Comm ents Source Name Type Date Date Clinician MUSTARD DRUG Active Anaphylaxis 2015- Univ ers INGREDI 5-12 ity of 00:00: [place] 00 Medical Branch Mustard Propensi Active Anaphylaxis Un roz ty to 5-12 ity of adverse 00:00: [place] reaction 00 Medical s Branch Social History Social Habit Start Date Stop Date Quantity Comments Source Exposure to Not sure [facility] SARS-CoV-2 (event) Medica l Branch Sex Assigned At [birth year] [facility] 00:00:00 00:00:00 Medical Branch Smoking Status Start Date Stop Date Source Unknown if ever smoked [facility] Medications Ordered Filled Start Stop Current Ordering Indication Dosage Frequency Signature Comments Components Source Medication Medication Date Date Medication? Clinician (SIG) Name Name ibuprofen Yes 800mg Take 1 Unive rs 800 mg 3-28 tablet by ity of tablet 00:00: mouth [place] 00 every 6 Medical (six) Branch hours [...] blood 2021-11-03 02:38:00 135 mm[Hg] Univer sity [facility] Diastolic blood 2021-11-03 02:38:00 80 mm[Hg] Unive rsity [facility] Heart rate 2021-11-03 02:38:00 90 /min [facility] Body temperature 2021-11-03 02:38:00 36.61 Farzana [facility] ers[facility]ly [facility] Respiratory rate 2021-11-03 02:38:00 20 /min [facility] Body height 2021-11-03 02:38:00 180.3 cm [facility] Body weight 2021-11-03 02:38:00 94.394 kg Universi [facility] BMI 2021-11-03 02:38:00 29.02 kg/m2 [facility] Oxygen saturation in 2021-11-03 02:38:00 99 /min [facility] Arterial blood by [facility] Pulse oximetry [place] Procedures Procedure Date / Time Performed Performing Clinician Chris rose POCT RAPID FLU A AND 2021-11-03 02:40:00 Chelsea Gray [facility] B TEST [facility] CONSENT/REFUSAL FOR 2021-11-03 02:28:35 Doctor Unassigned, No Un [facility] DIAGNOSIS AND Name [facility] TREATMENT Encounters Start End Encounter Admission Attending Care Care Encounter Source Date/Time Date/Time Type Type Clinicians Facility Department ID 2021-11-02 2021-11-02 Outpatient R MARTINEZ [facility] [id number] Univers 20:40:00 20:53:44 CHELSEA ity [facility] 2021-11-02 2021-11-02 Urgent Martinez [facility] [id number] Univers 20:29:16 20:53:44 Care [facility] [id number] it y of [place] [id number] Agustin as DAO?BLEA [id number] [address] MEDICAL OFFICE BUILDING 2021-11-02 2021-11-02 Orders Doctor MARGUERITE [id number] Univers 00:00:00 00:00:00 Only Unassigned, [place] [id number] ity of [place] [facility] [id number] Agustin as [id number] [facility] 009 Branch Results Test Description [...] controls Lab Interpretation (test code = Normal 92313-5) [facility]
[2022-03-24 09:23] LABS: Absolute Lymphocytes (CBC) 3.1 K/uL (0.7-4.9); Hematocrit 45.4 % (39.6-49.0); Lymphocytes % 22.8 % (15.3-44.8); MPV 9.4 fL (7.6-11.3); RBC Red Blood Cell Count 5.09 M/uL (4.33-5.43)
[2022-03-24] MEDS ORDERED: MECLIZINE HCL 12.5 MG TAB ONE (09:24)
[2022-03-24 09:29] LABS: Protime INR 1.04
[2022-03-24 09:45] LABS: ALT/SGPT 19 U/L (12-78); AST/SGOT 13 U/L (15-37); Albumin 3.8 g/dL (3.4-5.0); Alkaline Phosphatase 100 U/L (45-117); BUN Blood Urea Nitrogen 12 mg/dL (7-18); Bicarbonate 24 mmol/L (21-32); Bilirubin Direct 0.1 mg/dL (0-0.2); Bilirubin Total 0.4 mg/dL (0.2-1.0); Glucose Level 121 mg/dL (74-106); Magnesium 2.3 mg/dL (1.8-2.4); NT PRO-BNP 89 pg/mL (<125); Potassium 3.9 mmol/L (3.5-5.1); Protein, Total 7.6 g/dL (6.4-8.2); Sodium Level 139 mmol/L (136-145); Troponin High Sensitivity 10.2 pg/mL (<58.9)
--- NOTE | 2022-03-24 10:11 | RAD REPORT ---
EXAM DESCRIPTION: CT - Head Brain Wo Cont - 03/24/2022 9:40 am CLINICAL HISTORY: Dizziness, non-specific Headache, drowsiness COMPARISON: Head Brain Wo Cont dated 12/13/2021 TECHNIQUE: All CT scans are performed using dose optimization technique as appropriate and may inclu de automated exposure control or mA/KV adjustment according to patient size. FINDINGS: No intracranial hemorrhage, hydrocephalus or extra-axial fluid collection.No areas of brai n edema or evidence of midline shift. The paranasal sinuses and mastoids are clear. The calvarium is intact. IMPRESSION: No acute intracranial abnormality.
--- NOTE | 2022-03-24 10:12 | RAD REPORT ---
EXAM DESCRIPTION: RAD - Chest Single View - 03/24/2022 9:39 am CLINICAL HISTORY: Dizziness Chest pain. COMPARISON: CHEST PA AND LAT 2 VIEW dated 12/19/2010 FINDINGS: Portable technique limits examination quality. The lungs are grossly clear. The heart is upper limit of normal in size. No displaced fractures. IMPRESSION: No acute intrathoracic process suspected.
[2022-03-24 11:27] LABS: Urine Blood Negative (Negative); Urine Glucose Negative (Negative); Urine Protein Negative (Negative); Urine Specific Gravity >=1.030 (1.005-1.030)
[2022-03-24] MEDS ORDERED: DIAZEPAM 10 MG/2 ML INJ SYRINGE ONE (11:37)
[2022-03-24 11:44] LABS: Barbiturates NEGATIVE (NEGATIVE); Benzodiazepines NEGATIVE (NEGATIVE); Cocaine NEGATIVE (NEGATIVE); METHAMPHETAM NEGATIVE (NEGATIVE); Methadone NEGATIVE (NEGATIVE); Opiates NEGATIVE (NEGATIVE); Phencyclidine NEGATIVE (NEGATIVE); THC Cannibis NEGATIVE (NEGATIVE)
--- NOTE | 2022-03-24 12:43 | ER ---
Nurse's Notes [facility] Name: Brian Dent Age: 46 yrs Sex: Male : 1975 Arrival Date: 03/24/2022 Time: 08:58 Bed 6 Private MD: Diagnosis: Benign paroxysmal vertigo Presentation: 03/24 09:02 Chief complaint: Patient states: Dizziness x 2 day, stated BP 200 systolic on . vg1 Denies CP, SOB, headache, or N/V. Coronavirus screen: Vaccine status: Patient reports receiving the 2nd dose of the covid vaccine. Client denies travel out of the [place] in the last 14 days. Ebola Screen: Patient negative for fever greater than or equal to 101.5 degrees Fahrenheit, and additional compatible Ebola Virus Disease symptoms. Initial Sepsis Screen: Does the patient meet any 2 criteria? No. Patient's initial sepsis screen is negative. Does the patient have a suspected source of infection? No. Patient's initial sepsis screen is negative. Risk Assessment: Do you want to hurt yourself or someone else? Patient reports no desire to harm self or others. Onset of symptoms was March 22, 2022. 09:02 Method Of Arrival: Ambulatory vg1 09:02 Acuity: JACQUIE 3 vg1 Triage Assessment: 09:04 General: Appears in no apparent distress. comfortable, Behavior is calm, cooperative. vg1 Pain: Denies pain. Neuro: Level of Consciousness is awake, alert, obeys commands, Oriented to person, place, time, situation, Reports dizziness. Respiratory: Airway is patent Respiratory effort is even, unlabored. Historical: - Allergies: 09:04 Ibuprofen; vg1 09:04 Mustard; vg1 - PMHx: 09:04 Heart condition; Hypercholesterolemia; Hypertensive disorder; Myocardial infarction; vg1 - PSHx: 09:04 Appendectomy; vg1 - Immunization history:: Client reports receiving the 2nd dose of the Covid vaccine. - Social history:: Smoking status: Patient reports the use of cigarette tobacco products, smokes one-half pack cigarettes per day. Screenin:19 Abuse screen: Denies threats or abuse. Denies injuries from another. Nutritional ww screening: No deficits noted. Tuberculosis screening: No symptoms or risk factors identified. Fall Risk None identified. Assessment: 09:17 General: Appears in no apparent distress. Behavior is calm, cooperative. Neuro: Level ww of Consciousness is awake, alert, obeys commands, Oriented to person, place, time, situation, Speech is normal, Reports dizziness. Cardiovascular: Capillary refill < 3 seconds Patient's skin is warm and dry. Rhythm is regular. Respiratory: Airway is patent Respiratory effort is even, unlabored, Respiratory pattern is regular, symmetrical. GI: No signs and/or symptoms were reported involving the gastrointestinal system. : No signs and/or symptoms were reported regarding the genitourinary system. EENT: No signs and/or symptoms were reported regarding the EENT system. Denies pain nasal congestion, nasal discharge. Derm: No signs and/or symptoms reported regarding the dermatologic system. Skin is intact, is healthy with good turgor, Skin is pink, warm \T\ dry. Musculoskeletal: Circulation, motion, and sensation intact. 10:35 Reassessment: Patient appears in no apparent distress at this time. No changes from ww previously documented assessment. Patient and/or family updated on plan of care and expected duration. Pain level reassessed. Patient is alert, oriented x 3, equal unlabored respirations, skin warm/dry/pink. patient sleeping easy to arouse, informed patient of needing to collect urine, urinal at bedside. Patient states he still is dizzy. 11:07 Reassessment: Patient appears in no apparent distress at this time. No changes from ww previously documented assessment. Patient and/or family updated on plan of care and expected duration. Pain level reassessed. Patient is alert, oriented x 3, equal unlabored respirations, skin warm/dry/pink. 12:57 Reassessment: Patient appears in no apparent distress at this time. No changes from ww previously documented assessment. Patient and/or family updated on plan of care and expected duration. Pain level reassessed. Patient is alert, oriented x 3, equal unlabored respirations, skin warm/dry/pink. Patient states feeling better. Vital Signs: 09:02 BP 157 / 93; Pulse 83; Resp 17; Temp 98.2; Pulse Ox 100% ; Weight 97.52 kg; Height 5 vg1 ft. 11 in. (180.34 cm); Pain 0/10; 09:30 BP 139 / 90; Pulse 78; Resp 14; Pulse Ox 96% on R/A; ww 10:45 BP 130 / 89; Pulse 68; Resp 12; Pulse Ox 97% on R/A; ww 11:00 BP 142 / 96; Pulse 64; Resp 13; Pulse Ox 98% on R/A; ww 09:02 Body Mass Index 29.99 (97.52 kg, 180.34 cm) 1 ED Course: 08:58 Patient arrived in ED. rg4 09:02 See Strauss [facility] pm1 09:02 Landy Shane MD is Attending Physician. pm1 09:04 Triage completed. vg1 09:04 Arm band placed on. vg1 09:09 eKyla Gale, RN is Primary Nurse. ww 09:16 Initial lab(s) drawn, by id, sent to lab. Inserted saline lock: 20 gauge in right vg1 antecubital area, using aseptic technique. Blood collected. 09:19 Patient has correct armband on for positive identification. Placed in gown. Bed in low ww position. Call light in reach. Side rails up X 1. teletypesetter monitor on. Pulse ox on. NIBP on. 09:19 EKG done. ww 09:41 XRAY Chest (1 view) In Process Unspecified. EDMS 09:42 CT Head Brain wo Cont In Process Unspecified. EDMS 11:29 UDS Sent. 7 13:18 No provider procedures requiring assistance completed. IV discontinued, intact, ww bleeding controlled, No redness/swelling at site. Pressure dressing applied. Administered Medications: 09:23 Drug: Meclizine 50 mg Route: PO; ww 11:31 Not Given (Physician Discretion): Valium (diazepam) 5 mg IVP once pm1 11:58 Drug: Valium (diazepam) 2 mg Route: IVP; Site: right antecubital; ww Outcome: 12:43 Discharge ordered by . pm1 13:18 Discharged to home ambulatory. ww 13:18 Condition: stable 13:18 Discharge instructions given to patient, Instructed on discharge instructions, follow up and referral plans. medication usage, safety practices, Demonstrated understanding of instructions, follow-up care, medications, Prescriptions given X 1. 13:18 Patient left the ED. ww Signatures: Dispatcher [employer] EDCT See Strauss NP PEDIATRIC DENTAL HYGIENIST pm1 Marisol Avery rg4 Virginia Avery RN RN [facility] Shira Sevilla mb7 Keyla Gale, RN RN ww
--- NOTE | 2022-03-24 12:43 | EDPHYS ---
Physician Documentation [facility] Name: Brian Dent Age: 46 yrs Sex: Male : 1975 Arrival Date: 03/24/2022 Time: 08:58 Bed 6 Private MD: ED Physician Landy Shane HPI: 03/24 09:08 This 46 yrs old Male presents to ER via Ambulatory with complaints of Dizziness, High pm1 Blood Pressure. 09:08 The patient presents with dizziness. Onset: The symptoms/episode began/occurred pm1 yesterday. Context: occurred at home, occurred while the patient was changing position. just prior to the episode the patient experienced no apparent symptoms. Modifying factors: The symptoms are alleviated by holding head still, the symptoms are aggravated by movement of head, standing up, changing position. Associated signs and symptoms: Pertinent negatives: abdominal pain, chest pain, diaphoresis, nausea, numbness, shortness of breath, tingling, Weakness. Severity of symptoms: in the emergency department the symptoms are unchanged. Patient's baseline: Neuro: alert and fully oriented, Motor: no deficits, Ambulation: walks without assistance, Speech: normal, The patient has a previous history of [place]. The patient has not experienced similar symptoms in the past. The patient has not recently seen a physician, Patient of Dr Long. Historical: - Allergies: 09:04 Ibuprofen; vg1 09:04 Mustard; vg1 - PMHx: 09:04 Heart condition; Hypercholesterolemia; Hypertensive disorder; Myocardial infarction; vg1 - PSHx: 09:04 Appendectomy; vg1 - Immunization history:: Client reports receiving the 2nd dose of the Covid vaccine. - Social history:: Smoking status: Patient reports the use of cigarette tobacco products, smokes one-half pack cigarettes per day. ROS: 09:15 Constitutional: Negative for fever, chills, and weight loss, Eyes: Negative for injury, pm1 pain, redness, and discharge, Cardiovascular: Negative for chest pain, palpitations, and edema, Respiratory: Negative for shortness of breath, cough, wheezing, and pleuritic chest pain, Abdomen/GI: Negative for abdominal pain, nausea, vomiting, diarrhea, and constipation, Back: Negative for injury and pain, MS/Extremity: Negative for injury and deformity, Skin: Negative for injury, rash, and discoloration. 09:15 Neuro: Positive for dizziness, Negative for headache, numbness, tingling, weakness. 09:15 All other systems are negative. Exam: 09:15 Constitutional: This is a well developed, well nourished patient who is awake, alert, pm1 and in no acute distress. Head/Face: Normocephalic, atraumatic. 09:15 Back: No spinal tenderness. No costovertebral tenderness. Full range of motion. Skin: Warm, dry with normal turgor. Normal color with no rashes, no lesions, and no evidence of cellulitis. MS/ Extremity: Pulses equal, no cyanosis. Neurovascular intact. Full, normal range of motion. 09:15 Eyes: Periorbital structures: appear normal, Pupils: no acute changes, Extraocular movements: intact throughout, Conjunctiva: normal, no injection, Nystagmus: horizontal nystagmus with left wards gaze that reproduces the patient's dizziness. 09:15 ENT: Mouth: no acute changes, Lips: normal, moist, Oral mucosa: normal, pink and intact, moist. 09:15 Neck: Exam negative for acute changes, External neck: is normal, ROM/movement: no acute changes. 09:15 Cardiovascular: Exam negative for acute changes, Rate: normal, Rhythm: regular, Pulses: no pulse deficits are appreciated, Heart sounds: normal, normal S1and S2, Edema: is not appreciated. 09:15 Respiratory: Exam negative for acute changes, respiratory distress, shortness of breath, Breath sounds: are clear throughout. 09:15 Abdomen/GI: Exam negative for acute changes, Inspection: abdomen appears normal, Palpation: abdomen is soft and non-tender, in all quadrants. 09:15 Neuro: Exam negative for acute changes, Orientation: is normal, Mentation: is normal, Motor: is normal, moves all fours. Vital Signs: 09:02 BP 157 / 93; Pulse 83; Resp 17; Temp 98.2; Pulse Ox 100% ; Weight 97.52 kg; Height 5 vg1 ft. 11 in. (180.34 cm); Pain 0/10; 09:30 BP 139 / 90; Pulse 78; Resp 14; Pulse Ox 96% on R/A; ww 10:45 BP 130 / 89; Pulse 68; Resp 12; Pulse Ox 97% on R/A; ww 11:00 BP 142 / 96; Pulse 64; Resp 13; Pulse Ox 98% on R/A; ww 09:02 Body Mass Index 29.99 (97.52 kg, 180.34 cm) vg1 MDM: 09:16 Patient medically screened. pm1 09:36 Data reviewed: vital signs. Data interpreted: Pulse oximetry: on room air is 100 %. pm1 Interpretation: normal. 12:04 Counseling: I had a detailed discussion with the patient and/or guardian regarding: the pm1 historical points, exam findings, and any diagnostic results supporting the discharge/admit diagnosis, lab results, radiology results, the need for outpatient follow up, to return to the emergency department if symptoms worsen or persist or if there are any questions or concerns that arise at home. 03/24 09:08 Order name: Basic Metabolic Panel; Complete Time: 10:01 pm03/24 09:08 Order name: CBC with Diff; Complete Time: 09:29 pm03/24 09:08 Order name: LFT's; Complete Time: 10: pm03/24 09:08 Order name: Magnesium; Complete Time: 10:01 pm03/24 09:08 Order name: NT PRO-BNP; Complete Time: 10:01 pm03/24 09:08 Order name: PT-INR; Complete Time: 09:29 pm03/24 09:08 Order name: Troponin HS; Complete Time: 10:01 pm03/24 09:08 Order name: XRAY Chest (1 view); Complete Time: 10:38 pm03/24 09:08 Order name: CT Head Brain wo Cont; Complete Time: 10:38 pm03/24 09:16 Order name: UDS; Complete Time: 11:46 pm03/24 11:27 Order name: Urine Dipstick-Ancillary; Complete Time: 11:28 EDMS 03/24 09:08 Order name: EKG; Complete Time: 09:08 pm03/24 09:08 Order name: Cardiac monitoring; Complete Time: 09:14 pm03/24 09:08 Order name: EKG - Nurse/Tech; Complete Time: 09:14 pm03/24 09:08 Order name: IV Saline Lock; Complete Time: 09:14 pm03/24 09:08 Order name: Labs collected and sent; Complete Time: 09:14 pm1 03/24 09:08 Order name: O2 Per Protocol; Complete Time: 09:14 pm1 03/24 09:08 Order name: O2 Sat Monitoring; Complete Time: 09:15 pm1 03/24 09:16 Order name: Urine Dipstick-Ancillary (obtain specimen); Complete Time: 11:24 pm1 Administered Medications: 09:23 Drug: Meclizine 50 mg Route: PO; ww 11:31 Not Given (Physician Discretion): Valium (diazepam) 5 mg IVP once pm1 11:58 Drug: Valium (diazepam) 2 mg Route: IVP; Site: right antecubital; ww Disposition Summary: 03/24/22 12:43 Discharge Ordered Location: Home pm1 Problem: new pm1 Symptoms: have improved pm1 Condition: Stable pm1 Diagnosis - Benign paroxysmal vertigo pm1 Followup: pm1 - With: Emergency Department - When: As needed - Reason: Worsening of condition Followup: pm1 - With: Private Physician - When: 2 - 3 days - Reason: Recheck today's complaints, Continuance of care, Re-evaluation by your physician Discharge Instructions: - Discharge Summary Sheet pm1 - Benign Positional Vertigo pm1 Forms: - Medication Reconciliation Form pm1 - Thank You Letter pm1 - Work release form pm1 - Antibiotic Education pm1 - Prescription Opioid Use pm1 Prescriptions: - Meclizine 25 mg Oral Tablet - take 1 tablet by ORAL route every 8 hours As needed; 30 tablet; Refills: 0, pm1 Product Selection Permitted Signatures: Dispatcher [employer] See Salazar NP [employer] pm1 Virginia Avery RN RN 1 Keyla Gale RN RN ww
[2022-03-24 13:49] VITALS: TEMP 98.2
[2022-03-24 13:53] VITALS: BP 142/96; O2SAT 98
== END 2022-03-24 13:18 | disposition home or self-care (01) ==
LOC: ER 08:56
DX: H81.10 Benign paroxysmal vertigo, unspecified ear (principal); I10 Essential (primary) hypertension; I25.2 Old myocardial infarction; E78.00 Pure hypercholesterolemia, unspecified; F17.210 Nicotine dependence, cigarettes, uncomplicated; Z88.6 Allergy status to analgesic agent; Z91.018 Allergy to other foods
CPT/HCPCS: 36415; 70450; 71045; 80048; 80076; 80307; 81003; 83735; 83880; 84484; 85025; 85610; 93005; 96374; 99285; J3360; J8597

== ENCOUNTER 2022-05-31 19:13 | Emergency (ER) | payer SELFPAY ==
[2022-05-31] MEDS ORDERED: ACETAMINOPHEN 500 MG TAB ONE (19:37)
--- NOTE | 2022-05-31 20:45 | EDPHYS ---
Physician Documentation [facility] Name: Brian Dent Age: 46 yrs Sex: Male : 1975 Arrival Date: 05/31/2022 Time: 19:15 Bed 20 Private MD: ED Physician Hernán Friend HPI: 05/31 20:54 This 46 yrs old Male presents to ER via Ambulatory with complaints of Flu Symptoms. kb 20:54 The patient or guardian reports cough, that is intermittent, described as mild, flu kb symptoms, low-grade fever, myalgias. Onset: The symptoms/episode began/occurred today. Severity of symptoms: At their worst the symptoms were moderate, in the emergency department the symptoms are unchanged. Modifying factors: The symptoms are alleviated by nothing, the symptoms are aggravated by nothing. Associated signs and symptoms: Pertinent positives: fever. The patient has not experienced similar symptoms in the past. The patient has not recently seen a physician. Pt states he was on a cruise for the last 5 days. Today developed cough, bodyaches, malaise, fatigue, fever and chills. Historical: - Allergies: 19:23 Grapefruit; ld1 - Home Meds: 19:23 lisinopril 2.5 mg Oral tab 1 tab once daily [Active]; nitroglycerin 2.5 mg Oral cpER ld1 [Active]; - PMHx: 19:23 Hypertensive disorder; Myocardial infarction; Heart condition; Hypercholesterolemia; ld1 - PSHx: 19:23 Appendectomy; ld1 - Immunization history:: Adult Immunizations up to date, Client reports receiving the 2nd dose of the Covid vaccine. - Social history:: Smoking status: Patient reports the use of cigarette tobacco products, smokes one-half pack cigarettes per day, Patient/guardian denies using alcohol. ROS: 20:48 Abdomen/GI: Negative for abdominal pain, nausea, vomiting, diarrhea, and constipation. kb 20:48 Constitutional: Positive for body aches, chills, fatigue, fever, malaise. 20:48 Respiratory: Positive for cough, Negative for dyspnea on exertion, hemoptysis, orthopnea, pleurisy, shortness of breath, sputum production, wheezing. 20:48 Neuro: Positive for headache. 20:48 All other systems are negative. Exam: 20:48 Constitutional: This is a well developed, well nourished patient who is awake, alert, kb and in no acute distress. Head/Face: Normocephalic, atraumatic. ENT: Moist Mucous membranes Cardiovascular: Regular rate and rhythm with a normal S1 and S2. No gallops, murmurs, or rubs. No pulse deficits. Respiratory: Respirations even and unlabored. No increased work of breathing. Talking in full sentences Skin: Warm, dry with normal turgor. Normal color. MS/ Extremity: Pulses equal, no cyanosis. Neurovascular intact. Full, normal range of motion. Neuro: Awake and alert, GCS 15, oriented to person, place, time, and situation. Moves all extremities. Normal gait. Psych: Awake, alert, with orientation to person, place and time. Behavior, mood, and affect are within normal limits. Vital Signs: 19:20 BP 139 / 82; Pulse 113; Resp 16; Temp 101.7; Pulse Ox 93% on R/A; Weight 99.79 kg; ld1 Height 5 ft. 11 in. (180.34 cm); Pain 7/10; 21:08 BP 134 / 82; Pulse 97; Resp 17 S; Temp 99.2(O); Pulse Ox 96% on R/A; lg3 21:11 Temp 99.2(O); lg3 19:20 Body Mass Index 30.68 (99.79 kg, 180.34 cm) ld1 MDM: 19:20 Patient medically screened. kb 20:48 Data reviewed: vital signs, nurses notes. Data interpreted: Pulse oximetry: on room air kb is 96 %. Interpretation: normal. Counseling: I had a detailed discussion with the patient and/or guardian regarding: the historical points, exam findings, and any diagnostic results supporting the discharge/admit diagnosis, lab results, the need for outpatient follow up, a family practitioner, to return to the emergency department if symptoms worsen or persist or if there are any questions or concerns that arise at home. 05/31 19:23 Order name: Flu; Complete Time: 20:25 kb 05/31 19:23 Order name: COVID-19 SARS RT PCR (Document "Date of Onset" if Symptomatic); Complete kb Time: 20:45 Administered Medications: 19:31 Drug: Tylenol 1000 mg Route: PO; ld1 21:11 Follow up: Temp 99.2 Oral; Response: No adverse reaction; Temperature is decreased lg3 Disposition Summary: 05/31/22 20:45 Discharge Ordered Location: Home kb Condition: Stable kb Diagnosis - Coronavirus infection, unspecified kb Followup: kb - With: Emergency Department - When: As needed - Reason: Worsening of condition Followup: kb - With: Private Physician - When: 2 - 3 days - Reason: Recheck today's complaints, Continuance of care, Re-evaluation by your physician Discharge Instructions: - Discharge Summary Sheet kb - Viral Respiratory Infection, [id number] kb - COVID-19 kb Forms: - Medication Reconciliation Form kb - Thank You Letter kb - Antibiotic Education kb - Prescription Opioid Use kb Signatures: Dispatcher [employer] EDMary Little, Ina Alves, RN RN ld1 Chantell Curtis RN lg3
--- NOTE | 2022-05-31 20:45 | ER ---
Nurse's Notes [facility] Name: Brian Dent Age: 46 yrs Sex: Male : 1975 Arrival Date: 05/31/2022 Time: 19:15 Bed 20 Private MD: Diagnosis: Coronavirus infection, unspecified Presentation: 05/31 19:20 Chief complaint: Patient states: C/O body aches, cough, fever. Coronavirus screen: ld1 Client indicates they have traveled out of the [place] in the last 14 days. Client presents with at least one sign or symptom that may indicate coronavirus-19. Standard/surgical mask placed on the client. Ebola Screen: No symptoms or risks identified at this time. Initial Sepsis Screen: Does the patient meet any 2 criteria? Temp <36.0*C (96.8*F)) or > 38.3*C (100.9*F). HR > 90 bpm. Does the patient have a suspected source of infection? Yes: No. Patient's initial sepsis screen is negative. Risk Assessment: Do you want to hurt yourself or someone else? Patient reports no desire to harm self or others. Onset of symptoms was May 31, 2022. 19:20 Method Of Arrival: Ambulatory ld1 19:20 Acuity: JACQUIE 4 ld1 Triage Assessment: 19:23 General: Appears in no apparent distress. uncomfortable, Behavior is calm, cooperative, ld1 appropriate for age. Pain: Denies pain. Neuro: Level of Consciousness is awake, alert, obeys commands, Oriented to person, place, time, situation. Cardiovascular: Capillary refill < 3 seconds Patient's skin is warm and dry. Respiratory: Airway is patent Respiratory effort is even, unlabored, Respiratory pattern is. Historical: - Allergies: 19:23 Grapefruit; ld1 - Home Meds: 19:23 lisinopril 2.5 mg Oral tab 1 tab once daily [Active]; nitroglycerin 2.5 mg Oral cpER ld1 [Active]; - PMHx: 19:23 Hypertensive disorder; Myocardial infarction; Heart condition; Hypercholesterolemia; ld1 - PSHx: 19:23 Appendectomy; ld1 - Immunization history:: Adult Immunizations up to date, Client reports receiving the 2nd dose of the Covid vaccine. - Social history:: Smoking status: Patient reports the use of cigarette tobacco products, smokes one-half pack cigarettes per day, Patient/guardian denies using alcohol. Screenin:08 Abuse screen: Denies threats or abuse. Denies injuries from another. Nutritional lg3 screening: No deficits noted. Tuberculosis screening: No symptoms or risk factors identified. Fall Risk None identified. Assessment: 21:08 General: Appears in no apparent distress. comfortable, Behavior is calm, cooperative. lg3 Pain: Complains of pain in body aches. Neuro: No deficits noted. Level of Consciousness is awake, alert, obeys commands, Oriented to person, place, time, situation. Cardiovascular: No deficits noted. Denies chest pain, shortness of breath, Capillary refill < 3 seconds Clubbing of nail beds is absent Patient's skin is warm and dry. Respiratory: No deficits noted. Reports cough that is Airway is patent Respiratory effort is even, unlabored, Respiratory pattern is regular, symmetrical. GI: No deficits noted. No signs and/or symptoms were reported involving the gastrointestinal system. Abdomen is round non-distended. : No deficits noted. No signs and/or symptoms were reported regarding the genitourinary system. EENT: No deficits noted. No signs and/or symptoms were reported regarding the EENT system. Derm: No deficits noted. No signs and/or symptoms reported regarding the dermatologic system. Skin is intact, is healthy with good turgor, Skin is dry, Skin temperature is warm. Musculoskeletal: No deficits noted. No signs and/or symptoms reported regarding the musculoskeletal system. Circulation, motion, and sensation intact. Range of motion: intact in all extremities, Reports generalized weakness. Vital Signs: 19:20 BP 139 / 82; Pulse 113; Resp 16; Temp 101.7; Pulse Ox 93% on R/A; Weight 99.79 kg; ld1 Height 5 ft. 11 in. (180.34 cm); Pain 7/10; 21:08 BP 134 / 82; Pulse 97; Resp 17 S; Temp 99.2(O); Pulse Ox 96% on R/A; lg3 21:11 Temp 99.2(O); lg3 19:20 Body Mass Index 30.68 (99.79 kg, 180.34 cm) ld1 ED Course: 19:15 Patient arrived in ED. ja2 19:20 Mary Vance FNP-C is [facility]. kb 19:20 Hernán Friend MD is Attending Physician. kb 19:23 Triage completed. ld1 19:23 Arm band placed on right wrist. ld1 19:27 COVID-19 SARS RT PCR (Document "Date of Onset" if Symptomatic) Sent. ld1 19:27 Flu Sent. ld1 19:37 Chantell Curtis, RN is Primary Nurse. lg3 21:08 Patient has correct armband on for positive identification. Bed in low position. Call lg3 light in reach. Side rails up X 1. Client placed on continuous cardiac and pulse oximetry monitoring. NIBP monitoring applied. Door closed. Noise minimized. 21:08 No provider procedures requiring assistance completed. Patient did not have IV access lg3 during this emergency room visit. Administered Medications: 19:31 Drug: Tylenol 1000 mg Route: PO; ld1 21:11 Follow up: Temp 99.2 Oral; Response: No adverse reaction; Temperature is decreased lg3 Medication: 21:08 VIS not applicable for this client. lg3 Outcome: 20:45 Discharge ordered by MD. kb 21:16 Discharged to home ambulatory. lg3 21:16 Condition: stable 21:16 Discharge instructions given to patient, Instructed on discharge instructions, Demonstrated understanding of instructions. 21:17 Patient left the ED. lg3 Signatures: Mary Vance FNP-C FNP-Chantell Vinson, RN RN lg3 Ina Crystal RN RN ld1 Geeta Currie
[2022-05-31 21:27] VITALS: BP 134/82; TEMP 99.2; O2SAT 96
== END 2022-05-31 21:17 | disposition home or self-care (01) ==
LOC: ER 19:13
DX: U07.1 COVID-19 (principal); I10 Essential (primary) hypertension; F17.210 Nicotine dependence, cigarettes, uncomplicated; I25.2 Old myocardial infarction; Z91.018 Allergy to other foods
CPT/HCPCS: 87804; 99283; U0003

== ENCOUNTER 2022-11-20 13:19 | Emergency (ER) | payer SELFPAY ==
--- OUTSIDE RECORDS SUMMARY | 2022-11-20 13:22 | XMS REPORT | Continuity of Care Document ---
:1975 Author Organization [facility] t Address [address] [place] [address] Care Team Providers Name Role Phone Pcp, Patient Does Not Have A Primary Care Physician +[id number] CHELSEA HENRIQUEZ Attending Clinician Unavailable Chelsea Mock Attending Clinician Doctor Unassigned, [place] Attending Clinician Unavailable Problems Condition Condition Condition Status Onset Resolution Last Treating Co mments Source Name Details Category Date Date Treatment Clinician Date No known No known Disease Unive rs active active ity of problems problems [facility] Allergies, Adverse Reactions, Alerts Allergy Allergy Status Severity Reaction(s) Onset Inactive Treating Comm ents Source Name Type Date Date Clinician MUSTARD DRUG Active Anaphylaxis 2015-0 Univ ers INGREDI 5-12 ity of 00:00: [place] 00 Medical Branch Mustard Propensi Active Anaphylaxis 2015-0 Un roz ty to 5-12 ity of adverse 00:00: [place] reaction 00 Medical s Branch Social History Social Habit Start Date Stop Date Quantity Comments Source Exposure to Not sure [facility] SARS-CoV-2 (event) Medica l Branch Sex Assigned At [birth year] [facility] 00:00:00 00:00:00 Medical Branch Smoking Status Start Date Stop Date Source Unknown if ever smoked [facility] Medications Ordered Filled Start Stop Current Ordering Indication Dosage Frequency Signature Comments Components Source Medication Medication Date Date Medication? Clinician (SIG) Name Name ibuprofen 2016-0 Yes 800mg Take 1 Unive rs 800 [...] times Branch daily with meals. traMADOL 50 0 Yes 50mg Take 1 Univ ers mg tablet 1-28 tablet by ity o f 00:00: mouth [place] 00 every 6 Medical (six) Branch hours as needed for Pain (scale 4-6). Vital Signs Vital Name Observation Time Observation Value Comments Source Systolic blood 2021-11-03 02:38:00 135 mm[Hg] [facility] Diastolic blood 2021-11-03 02:38:00 80 mm[Hg] Unive rsity [facility] Heart rate 2021-11-03 02:38:00 90 /min [facility] Body temperature 2021-11-03 02:38:00 36.61 Farzana [facility] 2021-11-03 02:38:00 20 /min [facility] Body height 2021-11-03 02:38:00 180.3 cm [facility] Body weight 2021-11-03 02:38:00 94.394 kg [facility] BMI 2021-11-03 02:38:00 29.02 kg/m2 [facility] Oxygen saturation in 2021-11-03 02:38:00 99 /min [facility] Arterial blood by [facility] Pulse oximetry [place] Procedures Procedure Date / Time Performed Performing Clinician Chris e POCT RAPID FLU A AND 2021-11-03 02:40:00 Chelsea Henriquez [facility] B TEST [facility] CONSENT/REFUSAL FOR 2021-11-03 02:28:35 Doctor Unassigned, No Un [facility] DIAGNOSIS AND Name [facility] TREATMENT Encounters Start End Encounter Admission Attending Care Care Encounter Source Date/Time Date/Time Type Type Clinicians Facility Department ID 2021-11-02 2021-11-02 Outpatient R MARTINEZ [facility] [id number] Univers 20:40:00 20:53:44 [facility] 2021-11-02 2021-11-[address] [facility] [id number] Univers 20:29:16 20:53:44 Care [facility] [id number] it y of [place] [id number] Agustin as DAO?BLEA [id number] [address] MEDICAL OFFICE BUILDING 2021-11-02 2021-11-02 Orders Doctor MARGUERITE [id number] Univers 00:00:00 00:00:00 Only Unassigned, [place] [id number] ity of [place] [facility] [id number] Agustin as [id number] [place] [id number] Branch Results Test Description Test Time Test [...] controls Lab Interpretation (test code = Normal 13401-0) [facility]
[2022-11-20 14:25] LABS: SARS-COV-2 RT PCR NEGATIVE (NEGATIVE)
--- NOTE | 2022-11-20 14:31 | ER ---
Nurse's Notes [facility] Name: Brian Dent Age: 46 yrs Sex: Male : 1975 Arrival Date: 11/20/2022 Time: 13:24 Bed IW2 Private MD: Diagnosis: Acute upper respiratory infection, unspecified Presentation: 11/20 13:31 Chief complaint: Patient states: runny nose, intermittent fever, body aches, nausea, iw tested negative for COVID at his job, symptoms started last night. Coronavirus screen: Client presents with at least one sign or symptom that may indicate coronavirus-19. Ebola Screen: Patient negative for fever greater than or equal to 101.5 degrees Fahrenheit, and additional compatible Ebola Virus Disease symptoms Patient denies exposure to infectious person. Patient denies travel to an Ebola-affected area in the 21 days before illness onset. No symptoms or risks identified at this time. Initial Sepsis Screen: Does the patient meet any 2 criteria? No. Patient's initial sepsis screen is negative. Does the patient have a suspected source of infection? No. Patient's initial sepsis screen is negative. Risk Assessment: Do you want to hurt yourself or someone else? Patient reports no desire to harm self or others. Onset of symptoms was November 20, 2022. 13:31 Method Of Arrival: Ambulatory iw 13:31 Acuity: JACQUIE 4 iw Historical: - Allergies: 13:29 GRAPEFRUIT; iw 13:29 ibuprofen; interacts with heart med; iw - Home Meds: 13:30 Verapamil Oral [Active]; Lisinopril Oral [Active]; nitroglycerin 2.5 mg Oral cpER iw [Active]; - PMHx: 13:29 Heart condition; Hypercholesterolemia; Hypertensive disorder; Myocardial infarction; iw - PSHx: 13:29 Appendectomy; iw - Immunization history:: Adult Immunizations unknown. - Social history:: Smoking status: unknown. Screenin:40 [facility] ED Fall Risk Assessment (Adult) History of falling in the last 3 months, jl7 including since admission No falls in past 3 months (0 pts). Humpty Dumpty Scale Fall Assessment Tool (age< 18yrs) Gender Male (2 pts). Abuse screen: Denies threats or abuse. Denies injuries from another. Nutritional screening: No deficits noted. Tuberculosis screening: No symptoms or risk factors identified. Fall Risk No fall in past 12 months (0 pts). Total Tuttle Fall Scale indicates No Risk (0-24 pts). 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 jl7 Vital Signs: 13:31 BP 134 / 107; Pulse 102; Resp 20; Temp 99.1; Pulse Ox 97% on R/A; Weight 104.33 kg; iw Height 5 ft. 11 in. (180.34 cm); 14:45 BP 157 / 110; Pulse 98; Resp 17; Temp 98.9(O); Pulse Ox 98% on R/A; jl7 13:31 Body Mass Index 32.08 (104.33 kg, 180.34 cm) iw ED Course: 13:24 Patient arrived in ED. jm9 13:26 Mary Vance FNP-C is PHCP. kb 13:26 Getachew Suresh DO is Attending Physician. kb 13:32 Triage completed. iw 13:32 Arm band placed on. iw 13:36 COVID swab sent to lab. Flu and/or RSV swab sent to lab. iw 14:35 Kellie Donohue, RN is Primary Nurse. jl7 14:40 Patient has correct armband on for positive identification. jl7 14:40 No provider procedures requiring assistance completed. Patient did not have IV access jl7 during this emergency room visit. Administered Medications: No medications were administered Medication: 14:40 VIS not applicable for this client. jl7 Outcome: 14:31 Discharge ordered by . kb 14:45 Discharged to home ambulatory. jl7 14:45 Condition: stable 14:45 Discharge instructions given to patient, Instructed on discharge instructions, follow up and referral plans. Demonstrated understanding of instructions, follow-up care. 14:45 Patient left the ED. jl7 Signatures: Mary Vance FNP-C FNP-Niecy Yu RN DINAH iw Kellie Donohue RN RN Matilda Tavares jm9
--- NOTE | 2022-11-20 14:31 | EDPHYS ---
Physician Documentation [facility] Name: Brian Dent Age: 46 yrs Sex: Male : 1975 Arrival Date: 11/20/2022 Time: 13:24 Bed IW2 Private MD: ED Physician Getachew Suresh HPI: 11/20 14:19 This 46 yrs old Male presents to ER via Ambulatory with complaints of Runny Nose, kb Nausea/Vomiting. 14:19 The patient or guardian reports cough, that is intermittent, described as mild, flu kb symptoms, low-grade fever, myalgias, no appetite. Onset: The symptoms/episode began/occurred last night. Severity of symptoms: At their worst the symptoms were moderate, in the emergency department the symptoms are unchanged. Modifying factors: The symptoms are alleviated by nothing, the symptoms are aggravated by nothing. Associated signs and symptoms: Pertinent positives: fever, nausea, rhinorrhea, vomiting, Pertinent negatives: chest pain, diarrhea, ear ache, sore throat. The patient has not experienced similar symptoms in the past. The patient has not recently seen a physician. Historical: - Allergies: 13:29 GRAPEFRUIT; iw 13:29 ibuprofen; interacts with heart med; iw - Home Meds: 13:30 Verapamil Oral [Active]; Lisinopril Oral [Active]; nitroglycerin 2.5 mg Oral cpER iw [Active]; - PMHx: 13:29 Heart condition; Hypercholesterolemia; Hypertensive disorder; Myocardial infarction; iw - PSHx: 13:29 Appendectomy; iw - Immunization history:: Adult Immunizations unknown. - Social history:: Smoking status: unknown. ROS: 14:18 Cardiovascular: Negative for chest pain, palpitations, and edema. kb 14:18 Constitutional: Positive for body aches, chills, fatigue, fever, malaise. 14:18 ENT: Positive for rhinorrhea, sinus congestion. 14:18 Respiratory: Positive for cough. 14:18 Abdomen/GI: Positive for nausea and vomiting, Negative for abdominal pain. 14:18 All other systems are negative. Exam: 14:18 Constitutional: This is a well developed, well nourished patient who is awake, alert, kb and in no acute distress. Head/Face: Normocephalic, atraumatic. ENT: Moist Mucous membranes Cardiovascular: Regular rate and rhythm with a normal S1 and S2. No gallops, murmurs, or rubs. No pulse deficits. Respiratory: Respirations even and unlabored. No increased work of breathing. Talking in full sentences Abdomen/GI: Soft, non-tender. No distention Skin: Warm, dry with normal turgor. Normal color. MS/ Extremity: Pulses equal, no cyanosis. Neurovascular intact. Full, normal range of motion. Neuro: Awake and alert, GCS 15, oriented to person, place, time, and situation. Moves all extremities. Normal gait. Psych: Awake, alert, with orientation to person, place and time. Behavior, mood, and affect are within normal limits. Vital Signs: 13:31 BP 134 / 107; Pulse 102; Resp 20; Temp 99.1; Pulse Ox 97% on R/A; Weight 104.33 kg; iw Height 5 ft. 11 in. (180.34 cm); 14:45 BP 157 / 110; Pulse 98; Resp 17; Temp 98.9(O); Pulse Ox 98% on R/A; jl7 13:31 Body Mass Index 32.08 (104.33 kg, 180.34 cm) iw MDM: 13:35 Patient medically screened. kb 14:19 Data reviewed: vital signs, nurses notes. Data interpreted: Pulse oximetry: on room air kb is 97 %. Interpretation: normal. Counseling: I had a detailed discussion with the patient and/or guardian regarding: the historical points, exam findings, and any diagnostic results supporting the discharge/admit diagnosis, lab results, the need for outpatient follow up, a family practitioner, to return to the emergency department if symptoms worsen or persist or if there are any questions or concerns that arise at home. 11/20 13:34 Order name: COVID-19/FLU A+B; Complete Time: 14:29 kb Administered Medications: No medications were administered Disposition: 16:19 Co-signature as Attending Physician, Getachew Suresh DO I was immediately available onsite ms3 in the emergency department for consultation in the care of the patient. Disposition Summary: 11/20/22 14:31 Discharge Ordered Location: Home kb Condition: Stable kb Diagnosis - Acute upper respiratory infection, unspecified kb Followup: kb - With: Emergency Department - When: As needed - Reason: Worsening of condition Followup: kb - With: Private Physician - When: 2 - 3 days - Reason: Recheck today's complaints, Continuance of care, Re-evaluation by your physician Discharge Instructions: - Discharge Summary Sheet kb - Upper Respiratory Infection, Adult, [id number] kb - Viral Respiratory Infection, [id number] kb Forms: - Medication Reconciliation Form kb - Thank You Letter kb - Antibiotic Education kb - Prescription Opioid Use kb Signatures: Dispatcher [employer] EDMary Little, NOÉ-C NOÉ-Niecy Yu, RN RN iw Kellie Donohue RN RN jl7 Getachew Suresh DO DO ms3
[2022-11-20 14:56] VITALS: BP 157/110; TEMP 98.9; O2SAT 98
== END 2022-11-20 14:45 | disposition home or self-care (01) ==
LOC: ER 13:19
DX: J06.9 Acute upper respiratory infection, unspecified (principal); I10 Essential (primary) hypertension; I25.2 Old myocardial infarction; Z20.822 Contact with and (suspected) exposure to COVID-19; Z88.6 Allergy status to analgesic agent; Z91.018 Allergy to other foods
CPT/HCPCS: 0240U; 99283

== ENCOUNTER 2023-02-13 19:45 | Emergency (ER) | payer SELFPAY ==
--- OUTSIDE RECORDS SUMMARY | 2023-02-13 19:48 | XMS REPORT | Continuity of Care Document ---
:1975 Author Organization [facility] t Address [address] [place] [address] [address] [place] [address] Care Team Providers Name Role Phone Pcp, Patient Does Not Have A Primary Care Physician +[phone] 00-0000 CHELSEA HENRIQUEZ Attending Clinician Unavailable Chelsea Mock Attending Clinician Doctor Unassigned, [place] Attending Clinician Unavailable Problems Condition Condition Condition Status Onset Resolution Last Treating Co mments Source Name Details Category Date Date Treatment Clinician Date No known No known Disease Unive rs active active ity of problems problems [facility] Allergies, Adverse Reactions, Alerts Allergy [...] Quantity Comments Source Exposure to Not sure [facility] SARS-CoV-2 (event) Medica l Branch Sex Assigned At [birth year] [facility] 00:00:00 00:00:00 Medical Branch Smoking Status Start Date Stop Date Source Unknown if ever smoked [facility] Medications Ordered Filled Start Stop [...] 2021-11-03 02:38:00 135 mm[Hg] Univer sity of [facility] Diastolic blood 2021-11-03 02:38:00 80 mm[Hg] Unive rsity [facility] Heart rate 2021-11-03 02:38:00 90 /min [facility] Body temperature 2021-11-03 02:38:00 36.61 Farzana [facility] 2021-11-03 02:38:00 20 /min [facility] Body height 2021-11-03 02:38:00 180.3 cm [facility] Body weight 2021-11-03 02:38:00 94.394 kg Universi [facility] BMI 2021-11-03 02:38:00 29.02 kg/m2 [facility] Oxygen saturation in 2021-11-03 02:38:00 99 /min [facility] Arterial blood by [facility] Pulse oximetry [place] Procedures Procedure Date / Time Performed Performing Clinician Chris rose POCT RAPID FLU A AND 2021-11-03 02:40:00 Chelsea Henriquez [facility] B [facility] CONSENT/REFUSAL FOR 2021-11-03 02:28:35 Doctor Unassigned, No Un [facility] DIAGNOSIS AND Name [facility] TREATMENT Encounters Start End Encounter Admission Attending Care Care Encounter Source Date/Time Date/Time Type Type Clinicians Facility Department ID 2021-11-02 2021-11-02 Outpatient R MARTINEZ [facility] [id number] Univers 20:40:00 20:53:44 CHELSEA ity [facility] 2021-11-02 2021-11-02 Urgent Martinez [facility] [id number] Univers 20:29:16 20:53:44 Care [facility] [id number] it y of [place] [id number] Agustin as DAO?BLEA [id number] [address] MEDICAL OFFICE BUILDING 2021-11-02 2021-11-02 Orders Doctor MARGUERITE [id number] Univers 00:00:00 00:00:00 Only Unassigned, SANTA [id number] ity of [place] [facility] [id number] Agustin as [phone] [facility] 009 Branch Results Test Description Test Time [...] controls Lab Interpretation (test code = Normal 35161-8) [facility]
[2023-02-13] MEDS ORDERED: ONDANSETRON 4 MG (ODT) TAB ONE (21:22)
[2023-02-13] MEDS ORDERED: HYDROCODONE/CHLORPHEN 5 ML/OSYR ONE (21:23)
[2023-02-13 22:24] LABS: SARS-COV-2 RT PCR NEGATIVE (NEGATIVE)
--- NOTE | 2023-02-13 23:10 | ER ---
Nurse's Notes [facility] Name: Brian Dent Age: 47 yrs Sex: Male : 1975 Arrival Date: 02/13/2023 Time: 20:02 Bed 12 Private MD: Diagnosis: Cough;Acute pharyngitis, unspecified Presentation: 02/13 21:08 Chief complaint: Patient states: "I don't feel good since yesterday. I've been waking mb9 up sweating, bodyaches, coughing, runny nose, and can't keep food down". Coronavirus screen: Vaccine status: Patient reports receiving the 2nd dose of the covid vaccine. Ebola Screen: No symptoms or risks identified at this time. Initial Sepsis Screen: Does the patient meet any 2 criteria? No. Patient's initial sepsis screen is negative. Does the patient have a suspected source of infection? No. Patient's initial sepsis screen is negative. Risk Assessment: Do you want to hurt yourself or someone else? Patient reports no desire to harm self or others. Onset of symptoms was February 12, 2023. 21:08 Method Of Arrival: Ambulatory mb9 21:08 Acuity: JACQUIE 4 mb9 Triage Assessment: 21:11 General: Appears uncomfortable, Behavior is calm, cooperative, appropriate for age. mb9 Pain: Complains of pain in whole body Pain does not radiate. Pain currently is 10 out of 10 on a pain scale. Quality of pain is described as throbbing, Pain began 1 day ago. 21:11 Neuro: Level of Consciousness is awake, alert, obeys commands, Oriented to person, mb9 place, time, situation, Appropriate for age. Respiratory: Reports cough that is Airway is patent Respiratory effort is even, unlabored, Respiratory pattern is regular, symmetrical, Breath sounds are clear bilaterally. Derm: Skin is pink, warm \\T\\ dry. Musculoskeletal: Range of motion: intact in all extremities. Historical: - Allergies: 21:09 Ibuprofen; interacts with heart med; mb9 21:09 GRAPEFRUIT; mb9 - Home Meds: 21:09 lisinopril Oral [Active]; nitroglycerin 2.5 mg Oral cpER [Active]; Verapamil Oral mb9 [Active]; - PMHx: 21:09 Heart condition; Hypercholesterolemia; Hypertensive disorder; Myocardial infarction; mb9 - PSHx: 21:09 Appendectomy; mb9 - Immunization history:: Adult Immunizations up to date. - Social history:: Smoking status: Patient reports the use of cigarette tobacco products, smokes one-half pack cigarettes per day. Screenin:21 [facility] ED Fall Risk Assessment (Adult) History of falling in the last 3 months, mb9 including since admission No falls in past 3 months (0 pts) Confusion or Disorientation No (0 pts) Intoxicated or Sedated No (0 pts) Impaired Gait No (0 pts) Mobility Assist Device Used No (0 pt) Altered Elimination No (0 pt). [facility] ED Fall Risk Assessment (Adult) Score/Fall Risk Level 0 - 2 = Low Risk Oriented to surroundings, Maintained a safe environment, Educated pt \\T\\ family on fall prevention, incl call for assistance when getting out of bed. Abuse screen: Denies threats or abuse. Nutritional screening: No deficits noted. Tuberculosis screening: No symptoms or risk factors identified. Assessment: 22:19 Reassessment: Patient and/or family updated on plan of care and expected duration. Pain mb9 level reassessed. Patient is alert, oriented x 3, equal unlabored respirations, skin warm/dry/pink. Patient states feeling better. Patient states symptoms have improved. Vital Signs: 21:08 BP 141 / 87; Pulse 96; Resp 18; Temp 98.2; Pulse Ox 100% ; Weight 97.52 kg; Height 5 mb9 ft. 11 in. ; Pain 8/10; 22:45 BP 138 / 89; Pulse 76; Resp 16; Pulse Ox 99% ; mb9 21:08 Body Mass Index 29.99 (97.52 kg, 180.34 cm) mb9 21:08 Pain Scale: Adult mb9 ED Course: 20:02 Patient arrived in ED. ag3 20:41 Junior Cardenas PA is PHCP. cp 20:41 Vaibhav Solano MD is Attending Physician. cp 21:09 Triage completed. mb9 21:10 Arm band placed on. mb9 21:20 Strep Sent. mb9 21:20 COVID-19/FLU A+B Sent. mb9 22:17 Shira Sevilla, DINAH is Primary Nurse. mb9 22:20 Bed in low position. Call light in reach. Side rails up X 1. Client placed on mb9 continuous cardiac and pulse oximetry monitoring. NIBP monitoring applied. Door closed. Noise minimized. Warm blanket given. 22:21 No provider procedures requiring assistance completed. Patient did not have IV access mb9 during this emergency room visit. Administered Medications: 21:20 Drug: Ondansetron PO 4 mg Route: PO; mb9 21:55 Follow up: Response: No adverse reaction mb9 21:20 Drug: Tussionex Pennkinetic ER PO Suspension 5 ml Route: PO; mb9 21:55 Follow up: Response: No adverse reaction mb9 Medication: 21:11 VIS not applicable for this client. mb9 Outcome: 23:09 Discharge ordered by . cp Signatures: Junior Cardenas PA PA cp Gomez, Alice ag3 Breneman, Mary Beth, RN RN mb9 Corrections: (The following items were deleted from the chart) 21:10 21:08 Pulse 96bpm; Resp 18bpm; Pulse Ox 100%; Temp 98.2F; 97.52 kg; Height 5 ft. 11 mb9 in.; BMI: 29.9; Pain 8/10, Adult; mb9
--- NOTE | 2023-02-13 23:10 | EDPHYS ---
Physician Documentation [facility] Name: Brian Dent Age: 47 yrs Sex: Male : 1975 Arrival Date: 02/13/2023 Time: 20:02 Bed 12 Private MD: ED Physician Vaibhav Solano Historical: - Allergies: 02/13 21:09 Ibuprofen; interacts with heart med; mb9 21:09 GRAPEFRUIT; mb9 - Home Meds: 21:09 lisinopril Oral [Active]; nitroglycerin 2.5 mg Oral cpER [Active]; Verapamil Oral mb9 [Active]; - PMHx: 21:09 Heart condition; Hypercholesterolemia; Hypertensive disorder; Myocardial infarction; mb9 - PSHx: 21:09 Appendectomy; mb9 - Immunization history:: Adult Immunizations up to date. - Social history:: Smoking status: Patient reports the use of cigarette tobacco products, smokes one-half pack cigarettes per day. Vital Signs: 21:08 BP 141 / 87; Pulse 96; Resp 18; Temp 98.2; Pulse Ox 100% ; Weight 97.52 kg; Height 5 mb9 ft. 11 in. ; Pain 8/10; 22:45 BP 138 / 89; Pulse 76; Resp 16; Pulse Ox 99% ; mb9 21:08 Body Mass Index 29.99 (97.52 kg, 180.34 cm) mb9 21:08 Pain Scale: Adult mb9 MDM: 21:11 Patient medically screened. cp 02/13 21:15 Order name: Strep cp 02/13 22:03 Order name: Throat Culture EDMS 02/13 21:15 Order name: COVID-19/FLU A+B cp Administered Medications: 21:20 Drug: Ondansetron PO 4 mg Route: PO; mb9 21:55 Follow up: Response: No adverse reaction mb9 21:20 Drug: Tussionex Pennkinetic ER PO Suspension 5 ml Route: PO; mb9 21:55 Follow up: Response: No adverse reaction mb9 Disposition Summary: 02/13/23 23:09 Discharge Ordered Location: Home cp Problem: new cp Symptoms: have improved cp Condition: Stable cp Diagnosis - Cough cp - Acute pharyngitis, unspecified cp Followup: cp - With: Private Physician - When: 2 - 3 days - Reason: Worsening of condition Discharge Instructions: - Discharge Summary Sheet mb9 Forms: - Work release form mb9 - Medication Reconciliation Form cp - Thank You Letter cp - Antibiotic Education cp - Prescription Opioid Use cp Signatures: Dispatcher [employer] EDMS Junior Cardenas PA PA cp Breneman, Mary Beth RN RN mb9
[2023-02-14 08:40] VITALS: TEMP 98.2
[2023-02-14 08:41] VITALS: BP 138/89; O2SAT 99
== END 2023-02-13 23:27 | disposition home or self-care (01) ==
LOC: ER 19:45
DX: R05.9 Cough, unspecified (principal); J02.9 Acute pharyngitis, unspecified; Z20.822 Contact with and (suspected) exposure to COVID-19
CPT/HCPCS: 0240U; 87070; 87081; Q0162

== ENCOUNTER 2023-02-15 18:39 | Emergency (ER) | payer SELFPAY ==
--- OUTSIDE RECORDS SUMMARY | 2023-02-15 18:43 | XMS REPORT | Continuity of Care Document ---
:1975 Author Organization [facility] t Address [address] [place] [address] [address] [place] [address] Care Team Providers Name Role Phone Pcp, Patient Does Not Have A Primary Care Physician +1-000-0 00-0000 CHELSEA HENRIQUEZ Attending Clinician Unavailable Chelsea Mock Attending Clinician Doctor Unassigned, [place] Attending Clinician Unavailable Problems Condition Condition Condition Status Onset Resolution Last Treating Co mments Source Name Details Category Date Date Treatment Clinician Date No known No known Disease Unive rs active active ity of problems problems [facility] Allergies, Adverse Reactions, Alerts Allergy [...] Quantity Comments Source Exposure to Not sure [facility] SARS-CoV-2 (event) Medica l Branch Sex Assigned At [birth year] [facility] 00:00:00 00:00:00 Medical Branch Smoking Status Start Date Stop Date Source Unknown if ever smoked [facility] Medications Ordered Filled Start Stop Current [...] 2021-11-03 02:38:00 135 mm[Hg] Univer sity of [facility] Diastolic blood 2021-11-03 02:38:00 80 mm[Hg] Unive rsity [facility] Heart rate 2021-11-03 02:38:00 90 /min [facility] Body temperature 2021-11-03 02:38:00 36.61 Farzana [facility] 2021-11-03 02:38:00 20 /min [facility] Body height 2021-11-03 02:38:00 180.3 cm [facility] Body weight 2021-11-03 02:38:00 94.394 kg Universi [facility] BMI 2021-11-03 02:38:00 29.02 kg/m2 [facility] Oxygen saturation in 2021-11-03 02:38:00 99 /min [facility] Arterial blood by [facility] Pulse oximetry [place] Procedures Procedure Date / Time Performed Performing Clinician Chris rose POCT RAPID FLU A AND 2021-11-03 02:40:00 Chelsea Henriquez [facility] B [facility] CONSENT/REFUSAL FOR 2021-11-03 02:28:35 Doctor Unassigned, No Un [facility] DIAGNOSIS AND Name [facility] TREATMENT Encounters Start End Encounter Admission Attending Care Care Encounter Source Date/Time Date/Time Type Type Clinicians Facility Department ID 2021-11-02 2021-11-02 Outpatient R MARTINEZ [facility] [id number] Univers 20:40:00 20:53:44 CHELSEA ity [facility] 2021-11-02 2021-11-02 Urgent Martinez [facility] [id number] Univers 20:29:16 20:53:44 Care [facility] [id number] it y of [place] [id number] Agustin as DAO?BLEA [id number] [address] MEDICAL OFFICE BUILDING 2021-11-02 2021-11-02 Orders Doctor MARGUERITE [id number] Univers 00:00:00 00:00:00 Only Unassigned, SANTA [id number] ity of [place] [facility] [id number] Agustin as [id number] [facility] 009 Branch Results Test Description Test Time [...] controls Lab Interpretation (test code = Normal 04875-3) [facility]
[2023-02-15] MEDS ORDERED: ONDANSETRON 4 MG (ODT) TAB ONE (18:55)
--- NOTE | 2023-02-15 18:55 | ER ---
Nurse's Notes [facility] Name: Brian Dent Age: 47 yrs Sex: Male : 1975 Arrival Date: 02/15/2023 Time: 18:40 Bed IW3 Private MD: Diagnosis: Acute upper respiratory infection, unspecified Presentation: 02/15 18:45 Chief complaint: Congestion, malaise, chills, subjective fever, sore throat, nausea, hb and diarrhea x 4 days. Coronavirus screen: Client presents with at least one sign or symptom that may indicate coronavirus-19. Standard/surgical mask placed on the client. Provider contacted for isolation considerations. Ebola Screen: No symptoms or risks identified at this time. Initial Sepsis Screen: Does the patient meet any 2 criteria? No. Patient's initial sepsis screen is negative. Does the patient have a suspected source of infection? No. Patient's initial sepsis screen is negative. Risk Assessment: Do you want to hurt yourself or someone else? Patient reports no desire to harm self or others. Onset of symptoms was February 12, 2023. 18:45 Method Of Arrival: Ambulatory hb 18:45 Acuity: JACQUIE 4 hb Historical: - Allergies: 18:46 GRAPEFRUIT; hb 18:46 Ibuprofen; interacts with heart med; hb - PMHx: 18:46 Heart condition; Hypercholesterolemia; Hypertensive disorder; Myocardial infarction; hb - PSHx: 18:46 Appendectomy; hb - Immunization history:: Adult Immunizations up to date. - Social history:: Smoking status: Patient/guardian denies using tobacco. Screenin:49 [facility] ED Fall Risk Assessment (Adult) Score/Fall Risk Level 0 - 2 = Low Risk hb Oriented to surroundings, Maintained a safe environment. Abuse screen: Denies threats or abuse. Denies injuries from another. Nutritional screening: No deficits noted. Tuberculosis screening: No symptoms or risk factors identified. Vital Signs: 18:45 BP 173 / 101; Pulse 96; Resp 20; Temp 99(TE); Pulse Ox 100% on R/A; Weight 102.06 kg; hb Height 5 ft. 11 in. ; Pain 9/10; 18:45 Body Mass Index 31.38 (102.06 kg, 180.34 cm) hb 18:45 Pain Scale: Adult hb ED Course: 18:40 Patient arrived in ED. [email or web address] 18:42 Mary Vance [facility]C [facility]. kb 18:42 Nick Guzman MD is Attending Physician. kb 18:46 Triage completed. hb 18:48 Arm band placed on. hb Administered Medications: No medications were administered Outcome: 18:54 Discharge ordered by . kb Signatures: Mary Vance FNP-C [employer]ISH[employer]-Stephanie Andres RN RN hb Shamika Watson [email or web address] Corrections: (The following items were deleted from the chart) 18:48 18:45 Pulse 96bpm; Resp 20bpm; Pulse Ox 100% RA; Temp 99F Temporal; hb hb 18:49 18:45 BP 151 / ???; Pulse 96bpm; Resp 20bpm; Pulse Ox 100% RA; Temp 99F Temporal; hb 102.06 kg; Height 5 ft. 11 in.; BMI: 31.3; Pain 9/10, Adult; hb
--- NOTE | 2023-02-15 18:55 | EDPHYS ---
Physician Documentation [facility] Name: Brian Dent Age: 47 yrs Sex: Male : 1975 Arrival Date: 02/15/2023 Time: 18:40 Bed IW3 Private MD: ED Physician Nick Guzman HPI: 02/15 18:53 This 47 yrs old Male presents to ER via Ambulatory with complaints of Cough, kb Congestion, Fever, Nausea, Diarrhea. 18:53 The patient or guardian reports cough, that is intermittent, described as mild, flu kb symptoms, low-grade fever, myalgias. Onset: The symptoms/episode began/occurred 3 day(s) ago. Severity of symptoms: At their worst the symptoms were moderate, in the emergency department the symptoms are unchanged. Modifying factors: The symptoms are alleviated by nothing, the symptoms are aggravated by nothing. Associated signs and symptoms: Pertinent positives: diarrhea, fever, nausea, rhinorrhea, sore throat, vomiting. The patient has not experienced similar symptoms in the past. The patient has been recently seen at the [facility] Emergency Department, this week, for similar complaints labs were performed, was given a prescription for antibiotics. Historical: - Allergies: 18:46 GRAPEFRUIT; hb 18:46 Ibuprofen; interacts with heart med; hb - PMHx: 18:46 Heart condition; Hypercholesterolemia; Hypertensive disorder; Myocardial infarction; hb - PSHx: 18:46 Appendectomy; hb - Immunization history:: Adult Immunizations up to date. - Social history:: Smoking status: Patient/guardian denies using tobacco. ROS: 18:48 Cardiovascular: Negative for chest pain, palpitations, and edema. kb 18:48 Constitutional: Positive for body aches, chills, fatigue, fever, malaise. 18:48 ENT: Positive for rhinorrhea, sinus congestion, sore throat. 18:48 Respiratory: Positive for cough. 18:48 Abdomen/GI: Positive for nausea, vomiting, and diarrhea, Negative for abdominal pain. 18:48 All other systems are negative. Exam: 18:48 Constitutional: This is a well developed, well nourished patient who is awake, alert, kb and in no acute distress. Head/Face: Normocephalic, atraumatic. ENT: Moist Mucous membranes Cardiovascular: Regular rate and rhythm with a normal S1 and S2. No gallops, murmurs, or rubs. No pulse deficits. Respiratory: Respirations even and unlabored. No increased work of breathing. Talking in full sentences Abdomen/GI: Soft, non-tender. No distention Skin: Warm, dry with normal turgor. Normal color. MS/ Extremity: Pulses equal, no cyanosis. Neurovascular intact. Full, normal range of motion. Neuro: Awake and alert, GCS 15, oriented to person, place, time, and situation. Moves all extremities. Normal gait. Vital Signs: 18:45 BP 173 / 101; Pulse 96; Resp 20; Temp 99(TE); Pulse Ox 100% on R/A; Weight 102.06 kg; hb Height 5 ft. 11 in. ; Pain 9/10; 18:45 Body Mass Index 31.38 (102.06 kg, 180.34 cm) hb 18:45 Pain Scale: Adult hb MDM: 18:42 Patient medically screened. kb 18:50 Differential Diagnosis: Bronchitis Influenza Upper Respiratory Infection Sinusitis kb Pharyngitis. Data reviewed: vital signs, nurses notes. Test considered but Not performed: Labs: cbc, bmp, covid, flu, strep - pt is tolerating po intake, tested negative for flu, covid and strep 2 days ago. Counseling: I had a detailed discussion with the patient and/or guardian regarding: the historical points, exam findings, and any diagnostic results supporting the discharge/admit diagnosis, the need for outpatient follow up, a family practitioner, to return to the emergency department if symptoms worsen or persist or if there are any questions or concerns that arise at home. ED course: Discussed symptomatic treatment with pt. Offered to retest for covid, flu and strep but that the results would not change the treatment plan. Verbal understanding received and pt elected not to be retested. Pt was prescribed amoxicillin 2 days ago and has been taking it. . Administered Medications: No medications were administered Disposition Summary: 02/15/23 18:54 Discharge Ordered Location: Home Condition: Stable kb Diagnosis - Acute upper respiratory infection, unspecified kb Followup: kb - With: Private Physician - When: 2 - 3 days - Reason: Recheck today's complaints, Continuance of care, Re-evaluation by your physician Followup: kb - With: Emergency Department - When: As needed - Reason: Worsening of condition Discharge Instructions: - Discharge Summary Sheet kb - Upper Respiratory Infection, Adult, [id number] kb - Viral Respiratory Infection, [id number] kb Forms: - Medication Reconciliation Form kb - Thank You Letter kb - Antibiotic Education kb - Prescription Opioid Use kb Prescriptions: - Zofran 4 mg Oral Tablet - take 1 tablet by ORAL route every 6 hours As needed; 10 tablet; Refills: 0, kb Product Selection Permitted Signatures: Mary Vance, NOÉ-C LOCOMOTIVE BOILERMAKER-Norbertob Stephanie Graff, RN RN
[2023-02-15 22:13] VITALS: BP 173/101; TEMP 99; O2SAT 100
== END 2023-02-15 18:57 | disposition home or self-care (01) ==
LOC: ER 18:39
DX: J06.9 Acute upper respiratory infection, unspecified (principal); Z88.6 Allergy status to analgesic agent; Z91.018 Allergy to other foods
CPT/HCPCS: 99282; Q0162

== ENCOUNTER 2023-04-18 22:26 | Emergency (ER) | payer SELFPAY ==
--- OUTSIDE RECORDS SUMMARY | 2023-04-18 22:28 | XMS REPORT | Continuity of Care Document ---
:1975 [facility] t Address [address] [place] [address] Care Team Providers Name Role Phone Pcp, Patient Does Not Have A Primary Care Physician [phone] CHELSEA HENRIQUEZ Attending Clinician Unavailable Chelsea Mock Attending Clinician Doctor Unassigned, [place] Attending Clinician Unavailable Problems Condition Condition Condition Status Onset Resolution Last Treating Co mments Source Name Details Category Date Date Treatment Clinician Date No known No known Disease Unive rs active active ity of problems problems [facility] Allergies, Adverse Reactions, Alerts Allergy Allergy Status Severity Reaction(s) Onset Inactive Treating Comm ents Source Name Type Date Date Clinician MUSTARD DRUG Active Anaphylaxis 0 Univ ers INGREDI 5-12 ity of 00:00: [place] 00 [facility] Mustard Propensi Active Anaphylaxis 2015-0 Un roz ty to 5-12 ity of adverse 00:00: [place] reaction 00 Medical s Branch Social History Social Habit Start Date Stop Date Quantity Comments Source Exposure to Not sure [facility] SARS-CoV-2 (event) Medica l Branch Sex Assigned At [birth year] [facility] 00:00:00 00:00:00 Medical Branch Smoking Status Start Date Stop Date Source Unknown if ever smoked [facility] Medications Ordered Filled Start Stop Current Ordering Indication Dosage Frequency Signature Comments Components Source Medication Medication Date Date Medication? Clinician (SIG) Name Name ibuprofen 0 Yes 800mg Take 1 Unive rs 800 [...] 2021-11-03 02:38:00 135 mm[Hg] [facility] of [facility] Diastolic blood 2021-11-03 02:38:00 80 mm[facility]Hg[facility] Heart rate 2021-11-03 02:38:00 90 /min [facility] Body temperature 2021-11-03 02:38:00 36.61 Far[facility] rate 2021-11-03 02:38:00 20 /min [facility] Body height 2021-11-03 02:38:00 180.3 cm [facility] Body weight 2021-11-03 02:38:00 94.394 kg [facility] BMI 2021-11-03 02:38:00 29.02 kg/m2 [facility] Oxygen saturation in 2021-11-03 02:38:00 99 /min [facility] Arterial blood by [facility] Pulse oximetry [place] Procedures Procedure Date / Time Performed Performing Clinician Sour e POCT RAPID FLU A AND 2021-11-03 02:40:00 Chelsea Henriquez [facility] B TEST [facility] CONSENT/REFUSAL FOR 2021-11-03 02:28:35 Doctor Unassigned, No Un [facility] DIAGNOSIS AND Name [facility] TREATMENT Encounters Start End Encounter Admission Attending Care Care Encounter Source Date/Time Date/Time Type Type Clinicians Facility Department ID 2021-11-02 2021-11-[address] [facility] [id number] Univers 20:40:00 20:53:44 [facility] 2021-11-02 2021-11-02 Urgent Martinez [facility] [id number] Univers 20:29:16 20:53:44 Care [facility] [id number] it y of [place] [id number] Agustin as DAO?BLEA [id number] Fl dical [address] MEDICAL OFFICE BUILDING 2021-11-02 2021-11-02 Orders Doctor MARGUERITE [id number] Univers 00:00:00 00:00:00 Only Unassigned, [place] [id number] ity of [place] [facility] [id number] Agustin as [id number] [facility] [address] [place] Results Test Description Test Time Test Comments [...] controls Lab Interpretation (test code = Normal 96849-0) [facility]
--- NOTE | 2023-04-18 23:38 | EDPHYS ---
Physician Documentation [facility] Name: Brian Dent Age: 47 yrs Sex: Male : 1975 Arrival Date: 04/18/2023 Time: 22:26 Bed 9 Private MD: ED Physician Hernán Friend HPI: 04/18 23:18 This 47 yrs old Male presents to ER via Ambulatory with complaints of Arm Pain. sp3 23:18 47-year-old male with hypertension, hyperlipidemia presents with right arm and wrist sp3 pain secondary to fall on outstretched hand that occurred 7 days ago while at work. 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 He states that he has been "wrapping it" but is not getting better so he presents for evaluation today. OTC NSAIDs have been taking which have helped somewhat. He denies any elbow pain, shoulder pain, head injury, headache, neck pain, chest pain, shortness of breath, abdominal pain, any secondary injury, bleeding, numbness or tingling, or any other aspect of review of systems at this time.. Historical: - Allergies: 23:01 GRAPEFRUIT; vg1 23:01 Ibuprofen; interacts with heart med; vg1 - Home Meds: 23:01 nitroglycerin 2.5 mg Oral cpER [Active]; lisinopril 2.5 mg Oral tab 1 tab once daily vg1 [Active]; lisinopril Oral [Active]; - PMHx: 23:01 Heart condition; Hypercholesterolemia; Hypertensive disorder; Myocardial infarction; vg1 - PSHx: 23:01 Appendectomy; vg1 - Immunization history:: Client reports receiving the 2nd dose of the Covid vaccine. - Social history:: Smoking status: Patient reports the use of cigarette tobacco products, smokes one-half pack cigarettes per day. ROS: 23:19 Constitutional: Negative for fever, chills, and weight loss, Eyes: Negative for injury, sp3 pain, redness, and discharge, Neck: Negative for injury, pain, and swelling, Cardiovascular: Negative for chest pain, palpitations, and edema, Respiratory: Negative for shortness of breath, cough, wheezing, and pleuritic chest pain, Abdomen/GI: Negative for abdominal pain, nausea, vomiting, diarrhea, and constipation, Back: Negative for injury and pain, Skin: Negative for injury, rash, and discoloration, Neuro: Negative for headache, weakness, numbness, tingling, and seizure, Endocrine: Negative for neck swelling, polydipsia, polyuria, polyphagia, and marked weight changes. 23:19 All other systems are negative. Exam: 23:19 Constitutional: This is a well developed, well nourished patient who is awake, alert, sp3 and in no acute distress. Head/Face: Normocephalic, atraumatic. Neck: Trachea midline, no thyromegaly or masses palpated, and no cervical lymphadenopathy. Supple, full range of motion without nuchal rigidity, or vertebral point tenderness. No Meningismus. Chest/axilla: Normal chest wall appearance and motion. Nontender with no deformity. No lesions are appreciated. Cardiovascular: Regular rate and rhythm with a normal S1 and S2. No gallops, murmurs, or rubs. Normal PMI, no JVD. No pulse deficits. Respiratory: Lungs have equal breath sounds bilaterally, clear to auscultation and percussion. No rales, rhonchi or wheezes noted. No increased work of breathing, no retractions or nasal flaring. Skin: Warm, dry with normal turgor. Normal color with no rashes, no lesions, and no evidence of cellulitis. Neuro: Awake and alert, GCS 15, oriented to person, place, time, and situation. Cranial nerves II-XII grossly intact. Motor strength 5/5 in all extremities. Sensory grossly intact. Cerebellar exam normal. Normal gait. Psych: Awake, alert, with orientation to person, place and time. Behavior, mood, and affect are within normal limits. 23:19 Musculoskeletal/extremity: Patient has limited range of motion in the right wrist. He is unable to make an okay sign secondary to pain but he does have neurological and motor function in his right hand. Sensation is also normal. Pulses are normal. There is also pain in the anatomical snuffbox. Pronation and supination passively can be handled though patient does have pain. No pain at range of motion of the right elbow and shoulder. I do not believe patient has any other secondary injuries.. Vital Signs: 23:01 BP 152 / 89; Pulse 83; Resp 16; Temp 98.2(TE); Pulse Ox 96% on R/A; Weight 88.45 kg; vg1 Height 5 ft. 11 in. ; Pain 09/10; 04/19 00:23 Resp 18; kl 04/18 23:01 Body Mass Index 27.20 (88.45 kg, 180.34 cm) vg1 04/18 23:01 Pain Scale: Adult vg1 MDM: 04/18 23:18 Patient medically screened. sp3 23:21 Data reviewed: vital signs, nurses notes, radiologic studies. ED course: 47-year-old sp3 male with right wrist and hand injury 7 days ago while at work. Will obtain x-rays of the right hand and wrist and disposition accordingly. I am not highly suspicious for fracture however he has pain at snuffbox therefore will require thumb spica splint on the right hand. Follow-up with orthopedics as needed.. 23:35 ED course: X-rays demonstrate no acute fracture. Due to pain in the snuffbox, thumb sp3 spica splint will be placed along with sling. Patient to follow-up with orthopedics. Patient understands need for follow-up including risk for avascular necrosis in the hand.. 04/18 23:18 Order name: Hand Right 3 View XRAY sp3 04/18 23:35 Order name: Splint - Thumb Spica: Right hand sp3 04/18 23:35 Order name: Sling sp3 Administered Medications: No medications were administered Disposition Summary: 04/18/23 23:37 Discharge Ordered Location: Home sp3 Condition: Stable sp3 Diagnosis - Sprain of other part of right wrist and hand sp3 Followup: sp3 - With: Praveen Scott MD - When: Upon discharge from the Emergency Department - Reason: Further diagnostic work-up, Recheck today's complaints Discharge Instructions: - Discharge Summary Sheet sp3 - Cast or Splint Care, Adult sp3 - How to Use a Sling sp3 Forms: - Medication Reconciliation Form sp3 - Thank You Letter sp3 - Antibiotic Education sp3 - Prescription Opioid Use sp3 Prescriptions: - Diclofenac Sodium 75 mg Oral Tablet Sustained Release - take 1 tablet by ORAL route 2 times per day; 30 tablet; Refills: 0, Product sp3 Selection Permitted Signatures: Dispatcher [employer] EDBing Saucedo RN RN kl Garcia, Victoria, RN RN [facility] Hernán Friend MD MD sp3 Corrections: (The following items were deleted from the chart) 23:29 23:19 Wrist Right 3 View+RAD.RAD.BRZ ordered. EDMS EDMS
--- NOTE | 2023-04-18 23:38 | ER ---
Nurse's Notes [facility] Name: Brian Dent Age: 47 yrs Sex: Male : 1975 Arrival Date: 04/18/2023 Time: 22:26 Bed 9 Private MD: Diagnosis: Sprain of other part of right wrist and hand Presentation: 04/18 22:57 Chief complaint: Patient states: slipped at work on 04/11 and fell onto Right arm, pain vg1 has been getting worse, stated unable to lift or grab things. Took two Tylenol tablets around 2100. Coronavirus screen: Vaccine status: Patient reports receiving the 2nd dose of the covid vaccine. Client denies travel out of the [place] in the last 14 days. Ebola Screen: Patient negative for fever greater than or equal to 101.5 degrees Fahrenheit, and additional compatible Ebola Virus Disease symptoms Patient denies exposure to infectious person. Patient denies travel to an Ebola-affected area in the 21 days before illness onset. Risk Assessment: Do you want to hurt yourself or someone else? Patient reports no desire to harm self or others. Onset of symptoms was April 11, 2023. 22:57 Method Of Arrival: Ambulatory vg1 22:57 Acuity: JACQUIE 4 vg1 04/19 00:22 Initial Sepsis Screen: Does the patient meet any 2 criteria? No. Patient's initial kl sepsis screen is negative. Does the patient have a suspected source of infection? No. Patient's initial sepsis screen is negative. Triage Assessment: 04/18 23:01 General: Appears uncomfortable, Behavior is cooperative. Pain: Complains of pain in vg1 right arm Pain currently is 10 out of 10 on a pain scale. Musculoskeletal: Range of motion: limited in right elbow and right wrist. Historical: - Allergies: 23:01 GRAPEFRUIT; vg1 23:01 Ibuprofen; interacts with heart med; vg1 - Home Meds: 23:01 nitroglycerin 2.5 mg Oral cpER [Active]; lisinopril 2.5 mg Oral tab 1 tab once daily vg1 [Active]; lisinopril Oral [Active]; - PMHx: 23:01 Heart condition; Hypercholesterolemia; Hypertensive disorder; Myocardial infarction; vg1 - PSHx: 23:01 Appendectomy; vg1 - Immunization history:: Client reports receiving the 2nd dose of the Covid vaccine. - Social history:: Smoking status: Patient reports the use of cigarette tobacco products, smokes one-half pack cigarettes per day. Screenin/19 00:22 [facility] ED Fall Risk Assessment (Adult) History of falling in the last 3 months, kl including since admission No falls in past 3 months (0 pts) Confusion or Disorientation No (0 pts) Intoxicated or Sedated No (0 pts) Impaired Gait No (0 pts) Mobility Assist Device Used No (0 pt) Altered Elimination No (0 pt) Score/Fall Risk Level 0 - 2 = Low Risk. Abuse screen: Denies threats or abuse. Nutritional screening: No deficits noted. Tuberculosis screening: No symptoms or risk factors identified. Assessment: 00:21 Reassessment: Patient appears in no apparent distress at this time. Patient and/or kl family updated on plan of care and expected duration. Pain level reassessed. General: Appears in no apparent distress. comfortable. Vital Signs: 04/18 23:01 BP 152 / 89; Pulse 83; Resp 16; Temp 98.2(TE); Pulse Ox 96% on R/A; Weight 88.45 kg; vg1 Height 5 ft. 11 in. ; Pain 10/10; 04/19 00:23 Resp 18; kl 04/18 23:01 Body Mass Index 27.20 (88.45 kg, 180.34 cm) vg1 04/18 23:01 Pain Scale: Adult vg1 ED Course: 04/18 22:28 Patient arrived in ED. ag3 23:01 Triage completed. vg1 23:01 Arm band placed on. vg1 23:06 Hernán Friend MD is Attending Physician. sp3 23:31 Hand Right 3 View XRAY In Process Unspecified. EDMS 23:36 Praveen Scott MD is Referral Physician. sp3 23:56 Victor Hugo wrap to right wrist Orthoglass splint: Thumb spica splint applied on right forearm. jb5 Sling applied to right arm. 04/19 00:22 No provider procedures requiring assistance completed. Patient did not have IV access kl during this emergency room visit. 00:23 Patient has correct armband on for positive identification. kl Administered Medications: No medications were administered Medication: 00:22 VIS not applicable for this client. kl Outcome: 04/18 23:37 Discharge ordered by MD. sp3 05/19 00:22 Discharged to home ambulatory. kl Condition: improved Discharge instructions given to patient, Instructed on discharge instructions, follow up and referral plans. medication usage, Demonstrated understanding of instructions, follow-up care, medications, Prescriptions given X 1. 00:23 Patient left the ED. kl Signatures: Dispatcher [employer] EDBing Saucedo RN RN kl Broussard, Jennifer jb5 Gomez, Alice ag3 Garcia, Victoria, RN RN vg1 Hernán Friend MD MD sp3
[2023-04-19 00:55] VITALS: BP 152/89; TEMP 98.2; O2SAT 96
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
== END 2023-04-19 00:23 | disposition home or self-care (01) ==
LOC: ER 22:26
DX: S63.8X1A Sprain of other part of right wrist and hand, initial encounter (principal)
CPT/HCPCS: 99283

== ENCOUNTER 2023-08-20 15:53 | Emergency (ER) | payer SELFPAY ==
--- OUTSIDE RECORDS SUMMARY | 2023-08-20 15:56 | XMS REPORT | Continuity of Care Document ---
:1975 Author Organization [facility] t Address [address] [facility] [address] [place] [address] Care Team Providers Name Role Phone Pcp, Patient Does Not Have A Primary Care Physician +[id number] CHELSEA HENRIQUEZ Attending Clinician Unavailable Chelsea Mock Attending Clinician Doctor Unassigned, [place] Attending Clinician Unavailable Problems Condition Condition Condition Status Onset Resolution Last Treating Co mments Source Name Details Category Date Date Treatment Clinician Date No known No known Disease Unive rs active active ity of problems problems [facility] Allergies, Adverse Reactions, Alerts Allergy Allergy Status [...] l Branch Sex Assigned At [birth year] [facility] 00:00:00 00:00:00 Medical Branch Smoking Status Start Date Stop Date Source Unknown if ever smoked [facility] Medications Ordered Filled Start [...] 2021-11-03 02:38:00 135 mm[Hg] Univer sity of [facility] Diastolic blood 2021-11-03 02:38:00 80 mm[Hg] [facility] Heart rate 2021-11-03 02:38:00 90 /min [facility] Body temperature 2021-11-03 02:38:00 36.61 Farzana [facility] Respiratory rate 2021-11-03 02:38:00 20 /min [facility] Body height 2021-11-03 02:38:00 180.3 cm [facility] Body weight 2021-11-03 02:38:00 94.394 kg [facility] BMI 2021-11-03 02:38:00 29.02 kg/m2 [facility] Oxygen saturation in 2021-11-03 02:38:00 99 /min [facility] Arterial blood by [facility] Pulse oximetry [place] Procedures Procedure Date / Time Performed Performing Clinician Sour e POCT RAPID FLU A AND 2021-11-03 02:40:00 Chelsea Henriquez [facility] B TEST [facility] CONSENT/REFUSAL FOR 2021-11-03 02:28:35 Doctor Unassigned, No Un [facility] DIAGNOSIS AND Name [facility] TREATMENT Encounters Start End Encounter Admission Attending Care Care Encounter Source Date/Time Date/Time Type Type Clinicians Facility Department ID 2021-11-02 2021-11-02 Outpatient R MARTINEZ [facility] [id number] Univers 20:40:00 20:53:44 [facility] 2021-11-02 2021-11-02 Urgent Martinez [facility] [id number] Univers 20:29:16 20:53:44 Care [facility] [id number] it y of [place] [id number] Agustin as DAO?BLEA [id number] [place] dical [address] MEDICAL OFFICE BUILDING 2021-11-02 2021-11-02 Orders Doctor MARGUERITE [id number] Univers 00:00:00 00:00:00 Only Unassigned, SANTA [id number] ity of [place] [facility] [id number] Agustin as [id number] [facility] [address] [place] Results Test Description Test Time Test [...] controls Lab Interpretation (test code = Normal 80263-5) [facility]
--- NOTE | 2023-08-20 16:19 | EDPHYS ---
Physician Documentation [facility] Name: Brian Detn Age: 47 yrs Sex: Male : 1975 Arrival Date: 08/20/2023 Time: 15:53 Bed IW9 Private MD: ED Physician Mitch Teague HPI: 08/20 16:31 This 47 yrs old Male presents to ER via Ambulatory with complaints of Rash - kb Iching/Pain. 16:31 The patient's rash thought to be caused by an unknown cause. The rash is located on the kb body diffusely. The rash can be described as erythematous. Onset: The symptoms/episode began/occurred this morning. Associated signs and symptoms: Pertinent positives: itching. Severity of symptoms: At their worst the symptoms were moderate in the emergency department the symptoms are unchanged. The patient has not experienced similar symptoms in the past. The patient has not recently seen a physician. Pt reports he worked overnight and developed a rash to lower extremities this morning. States the rash has been itching and spreading up his body since onset so he hasn't been able to sleep. . Historical: - Allergies: 16:09 GRAPEFRUIT; mb9 16:09 Ibuprofen; interacts with heart med; mb9 - Home Meds: 16:09 lisinopril 2.5 mg Oral tab 1 tab once daily [Active]; lisinopril Oral [Active]; mb9 nitroglycerin 2.5 mg Oral cpER [Active]; - PMHx: 16:09 Heart condition; Hypercholesterolemia; Hypertensive disorder; Myocardial infarction; mb9 - PSHx: 16:09 Appendectomy; mb9 - Immunization history:: Adult Immunizations up to date. - Social history:: Smoking status: Patient reports the use of cigarette tobacco products, smokes one-half pack cigarettes per day. ROS: 16:31 Constitutional: Negative for fever, chills, and weight loss, kb 16:31 Skin: Positive for rash, diffusely, 16:31 All other systems are negative, Exam: 16:31 Constitutional: This is a well developed, well nourished patient who is awake, alert, kb and in no acute distress. Head/Face: Normocephalic, atraumatic. ENT: Moist Mucous membranes Cardiovascular: Regular rate Respiratory: Respirations even and unlabored. No increased work of breathing. Talking in full sentences Abdomen/GI: Soft, non-tender. No distention MS/ Extremity: Pulses equal, no cyanosis. Neurovascular intact. Full, normal range of motion. Neuro: Awake and alert, GCS 15, oriented to person, place, time, and situation. Moves all extremities. Normal gait. 16:31 Skin: consistent with contact dermatitis, and is diffusely located, Vital Signs: 16:13 BP 141 / 86; Pulse 100; Resp 18; Temp 98.9; Pulse Ox 97% on R/A; Weight 102.06 kg; mb9 Height 5 ft. 11 in. ; 16:13 Body Mass Index 31.38 (102.06 kg, 180.34 cm) mb9 MDM: 15:59 Patient medically screened. kb 16:31 Differential diagnosis: impetigo, allergic reaction, parasite infection. Data reviewed: kb vital signs, nurses notes. Counseling: I had a detailed discussion with the patient and/or guardian regarding the historical points, exam findings, and any diagnostic results supporting the discharge/admit diagnosis, the need for outpatient follow up, a grading supervisor, a family practitioner, to return to the emergency department if symptoms worsen or persist or if there are any questions or concerns that arise at home. Administered Medications: 16:28 Drug: Famotidine PO 20 mg PO once Route: PO; mb9 16:28 Follow up: Response: No adverse reaction mb9 16:28 Drug: predniSONE PO 60 mg PO once Route: PO; mb9 16:28 Follow up: Response: No adverse reaction mb9 16:28 Drug: diphenhydrAMINE PO 25 mg PO once Route: PO; mb9 16:28 Follow up: Response: No adverse reaction mb9 Disposition: 17:20 Co-signature as Attending Physician, Mitch Teague MD I reviewed the patient's care rn provided by the Advanced Practice Provider and agree with the diagnosis and treatment plan. Disposition Summary: 08/20/23 16:18 Discharge Ordered Notes: Location: Home Condition: Stable kb Diagnosis - Rash and other nonspecific skin eruption kb Followup: kb - With: Emergency Department - When: As needed - Reason: Worsening of condition Followup: kb - With: Private Physician - When: 2 - 3 days - Reason: Recheck today's complaints, Continuance of care, Re-evaluation by your physician Discharge Instructions: - Discharge Summary Sheet kb - Rash, Adult, [id number] kb Forms: - Medication Reconciliation Form kb - Thank You Letter kb - Antibiotic Education kb - Prescription Opioid Use kb - Patient Portal Instructions kb - Leadership Thank You Letter kb Prescriptions: - Pepcid 20 mg Oral Tablet - take 1 tablet ORAL route every 12 hours for 5 days; 10 tablet; Refills: 0, kb Product Selection Permitted - Prednisone 20 mg Oral Tablet - take 1 tablet ORAL route once daily for 5 days; 5 tablet; Refills: 0, Product kb Selection Permitted Signatures: Mary Vance, WIRE ROPE SALES REPRESENTATIVE-C WIRE ROPE SALES REPRESENTATIVE-Mitch Aguilera MD MD rn Shira Sevilla RN RN mb9
--- NOTE | 2023-08-20 16:19 | ER ---
Nurse's Notes [facility] Name: Brian Dent Age: 47 yrs Sex: Male : 1975 Arrival Date: 08/20/2023 Time: 15:53 Bed IW9 Private MD: Diagnosis: Rash and other nonspecific skin eruption Presentation: 08/20 16:13 Chief complaint: Patient states: "This morning, I started itching really bad. I have a mb9 rash on my legs and now it's traveling up my side. It's painful and itchy". Coronavirus screen: Vaccine status: Patient reports receiving the 2nd dose of the covid vaccine. Ebola Screen: No symptoms or risks identified at this time. Initial Sepsis Screen: Does the patient meet any 2 criteria? No. Patient's initial sepsis screen is negative. Does the patient have a suspected source of infection? No. Patient's initial sepsis screen is negative. Risk Assessment: Do you want to hurt yourself or someone else? Patient reports no desire to harm self or others. Onset of symptoms was August 20, 2023. 16:13 Method Of Arrival: Ambulatory [facility] 16:13 Acuity: JACQUIE 4 mb9 Triage Assessment: 16:14 General: Appears in no apparent distress. Behavior is cooperative. Pain: Denies pain. mb9 Neuro: Valle Agitation-Sedation Scale (RASS): 0 - Alert and Calm Level of Consciousness is awake, alert, obeys commands, Oriented to person, place, time, situation, Appropriate for age. Cardiovascular: Patient's skin is warm and dry. Respiratory: Airway is patent Respiratory effort is even, unlabored, Respiratory pattern is regular, symmetrical, Denies shortness of breath. GI: Abdomen is round non-distended. : No signs and/or symptoms were reported regarding the genitourinary system. Derm: Rash noted that is itchy, red, raised, on abdomen, right leg and left leg. Musculoskeletal: Range of motion: intact in all extremities. Historical: - Allergies: 16:09 GRAPEFRUIT; mb9 16:09 Ibuprofen; interacts with heart med; mb9 - Home Meds: 16:09 lisinopril 2.5 mg Oral tab 1 tab once daily [Active]; lisinopril Oral [Active]; mb9 nitroglycerin 2.5 mg Oral cpER [Active]; - PMHx: 16:09 Heart condition; Hypercholesterolemia; Hypertensive disorder; Myocardial infarction; mb9 - PSHx: 16:09 Appendectomy; mb9 - Immunization history:: Adult Immunizations up to date. - Social history:: Smoking status: Patient reports the use of cigarette tobacco products, smokes one-half pack cigarettes per day. Vital Signs: 16:13 BP 141 / 86; Pulse 100; Resp 18; Temp 98.9; Pulse Ox 97% on R/A; Weight 102.06 kg; mb9 Height 5 ft. 11 in. ; 16:13 Body Mass Index 31.38 (102.06 kg, 180.34 cm) mb9 ED Course: 15:57 Patient arrived in ED. mg5 15:59 Mary Vance FNP-C [facility] kb 15:59 Mitch Teague MD is Attending Physician. kb 16:08 Arm band placed on. mb9 16:14 Triage completed. mb9 16:21 Shira Sevilla RN is Primary Nurse. mb9 16:29 No provider procedures requiring assistance completed. Patient did not have IV access mb9 during this emergency room visit. Administered Medications: 16:28 Drug: Famotidine PO 20 mg PO once Route: PO; mb9 16:28 Follow up: Response: No adverse reaction mb9 16:28 Drug: predniSONE PO 60 mg PO once Route: PO; mb9 16:28 Follow up: Response: No adverse reaction mb9 16:28 Drug: diphenhydrAMINE PO 25 mg PO once Route: PO; mb9 16:28 Follow up: Response: No adverse reaction mb9 Outcome: 16:18 Discharge ordered by . kb 16:29 Discharged to home ambulatory, mb9 16:29 Condition: stable 16:29 Discharge instructions given to patient, Instructed on discharge instructions, follow up and referral plans. Demonstrated understanding of instructions, follow-up care, medications, Prescriptions given X 2, 16:29 Patient left the ED. mb9 Signatures: Mary Vance FNP-C FNP-Ckb Breneman, Mary Beth, RN RN mb9 Bertha Peacock mg5 Corrections: (The following items were deleted from the chart) 16:15 16:13 Pulse 100bpm; Resp 18bpm; Pulse Ox 97% RA; Temp 98.9F; 102.06 kg; Height 5 ft. 11 mb9 in.; BMI: 31.3; mb9
[2023-08-20] MEDS ORDERED: FAMOTIDINE 20 MG TAB ONE (16:39)
[2023-08-20] MEDS ORDERED: predniSONE 20 MG TAB ONE (16:39)
[2023-08-20] MEDS ORDERED: DIPHENHYDRAMINE 25 MG TAB/CAP ONE (16:39)
[2023-08-20 17:17] VITALS: BP 141/86; TEMP 98.9; O2SAT 97
== END 2023-08-20 16:29 | disposition home or self-care (01) ==
LOC: ER 15:53
DX: R21 Rash and other nonspecific skin eruption (principal)
CPT/HCPCS: J7512

== ENCOUNTER 2023-10-19 13:14 | Emergency (ER) | payer SELFPAY ==
--- OUTSIDE RECORDS SUMMARY | 2023-10-19 13:17 | XMS REPORT | Continuity of Care Document ---
:1975 Author Organization [facility] t Address [address] [facility] [address] [place] [address] Care Team Providers Name Role Phone Pcp, Patient Does Not Have A Primary Care Physician +[phone] 00-0000 CHELSEA HENRIQUEZ Attending Clinician Unavailable Chelsea Mock Attending Clinician Doctor Unassigned, [place] Attending Clinician Unavailable Problems Condition Condition Condition Status Onset Resolution Last Treating Co mments Source Name Details Category Date Date Treatment Clinician Date No known No known Disease Unive rs active active ity of problems problems [facility] Allergies, Adverse Reactions, Alerts Allergy Allergy Status [...] Quantity Comments Source Exposure to Not sure [facility] SARS-CoV-2 (event) Medica l Branch Sex Assigned At [birth year] [facility] 00:00:00 00:00:00 Medical Branch Smoking Status Start Date Stop Date Source Unknown if ever smoked [facility] Medications Ordered Filled Start Stop [...] blood 2021-11-03 02:38:00 135 mm[Hg] Univer sity [facility] Diastolic blood 2021-11-03 02:38:00 80 mm[Hg] Unive rsity [facility] Heart rate 2021-11-03 02:38:00 90 /min [facility] Body temperature 2021-11-03 02:38:00 36.61 Farzana [facility] Respiratory rate 2021-11-03 02:38:00 20 /min [facility] Body height 2021-11-03 02:38:00 180.3 cm [facility] Body weight 2021-11-03 02:38:00 94.394 kg [facility] BMI 2021-11-03 02:38:00 29.02 kg/m2 [facility] Oxygen saturation in 2021-11-03 02:38:00 99 /min [facility] Arterial blood by [facility] Pulse oximetry [place] Procedures Procedure Date / Time Performed Performing Clinician Sour e POCT RAPID FLU A AND 2021-11-03 02:40:00 Chelsea Henriquez [facility] CONSENT/REFUSAL FOR 2021-11-03 02:28:35 Doctor Unassigned, No Un [facility] DIAGNOSIS AND Name Medical Branch TREATMENT Encounters Start End Encounter Admission Attending Care Care Encounter Source Date/Time Date/Time Type Type Clinicians Facility Department ID 2021-11-02 2021-11-02 Outpatient R MARTINEZ [facility] [id number] Univers 20:40:00 20:53:44 [facility] 2021-11-02 2021-11-02 Urgent Martinez [facility] [id number] Univers 20:29:16 20:53:44 Care [facility] [id number] it y of [place] [id number] Agustin as DAO?BLEA [id number] [address] MEDICAL OFFICE BUILDING 2021-11-02 2021-11-02 Orders Doctor MARGUERITE [id number] Univers 00:00:00 00:00:00 Only Unassigned, SANTA [id number] ity of [place] [facility] [id number] Agustin as [id number] [place] [address] Branch Results Test Description Test Time Test [...] controls Lab Interpretation (test code = Normal 16496-4) [facility]
--- NOTE | 2023-10-19 13:50 | RAD REPORT ---
EXAM DESCRIPTION: CT - Head Brain Wo Cont - 10/19/2023 1:42 pm CLINICAL HISTORY: Headache COMPARISON: 2021 TECHNIQUE: Computed axial tomography of the head was obtained. IV contrast was not requested. All CT scans are performed using dose optimization technique as appropriate and may include automated exposure control or mA/KV adjustment according to patient size. FINDINGS: An intracranial bleed is not seen The ventricles are normal in caliber No significant hypodense areas within the brain visualized No extra-axial fluid collection is noted. Mild cerebellar vermis atrophy Empty sella turcica Fluid within the sinuses/ mastoids is not seen IMPRESSION: No acute intracranial abnormality is seen If patient's symptoms persist MRI of the brain would be recommended
[2023-10-19] MEDS ORDERED: METOCLOPRAMIDE 10 MG/2mL INJ ONE (13:55)
[2023-10-19] MEDS ORDERED: METHYLPREDNISOLONE 125 MG INJ ONE (13:55)
[2023-10-19] MEDS ORDERED: NA CHLORIDE 0.9% 1,000 ML ONE (13:55)
[2023-10-19] MEDS ORDERED: DIPHENHYDRAMINE 50 MG/ML VIAL ONE (13:55)
[2023-10-19 14:09] LABS: Absolute Lymphocytes (CBC) 4.2 K/uL (0.7-4.9); Hematocrit 42.6 % (39.6-49.0); MPV 9.3 fL (7.6-11.3); Platelets 286 thou/uL (152-406); RBC Red Blood Cell Count 4.79 M/uL (4.33-5.43)
[2023-10-19 15:06] LABS: Potassium 3.6 mEq/L (3.5-5.1)
--- NOTE | 2023-10-19 15:07 | ER ---
Nurse's Notes [facility] Name: Brian Dent Age: 47 yrs Sex: Male : 1975 Arrival Date: 10/19/2023 Time: 13:14 Bed 8 Private MD: Diagnosis: Migraine without aura, not intractable Presentation: 10/19 13:22 Chief complaint: Patient states: massive migraine for a month, taking Excedrin migraine iw and not helping much , has not been seen by doctor, reports light sensitivity and sensitivity to sound. Coronavirus screen: At this time, the client does not indicate any symptoms associated with coronavirus-19. Ebola Screen: Patient negative for fever greater than or equal to 101.5 degrees Fahrenheit, and additional compatible Ebola Virus Disease symptoms Patient denies exposure to infectious person. Patient denies travel to an Ebola-affected area in the 21 days before illness onset. No symptoms or risks identified at this time. Initial Sepsis Screen: Does the patient meet any 2 criteria? No. Patient's initial sepsis screen is negative. Does the patient have a suspected source of infection? No. Patient's initial sepsis screen is negative. Risk Assessment: Do you want to hurt yourself or someone else? Patient reports no desire to harm self or others. Onset of symptoms was September 2023. 13:22 Method Of Arrival: Ambulatory iw 13:22 Acuity: JACQUIE 3 iw Historical: - Allergies: 13:23 GRAPEFRUIT; iw 13:23 Ibuprofen; interacts with heart med; iw - PMHx: 13:23 Heart condition; Hypercholesterolemia; Hypertensive disorder; Myocardial infarction; iw - PSHx: 13:23 Appendectomy; iw - Immunization history:: Client reports receiving the 2nd dose of the Covid vaccine. - Social history:: Smoking status: Smoking status: Patient reports the use of cigarette tobacco products. Screenin:30 [facility] ED Fall Risk Assessment (Adult) History of falling in the last 3 months, ko1 including since admission No falls in past 3 months (0 pts) Confusion or Disorientation No (0 pts) Intoxicated or Sedated No (0 pts) Impaired Gait No (0 pts) Mobility Assist Device Used No (0 pt) Altered Elimination No (0 pt) Score/Fall Risk Level 0 - 2 = Low Risk Oriented to surroundings, Maintained a safe environment, Educated pt \T\ family on fall prevention, incl call for assistance when getting out of bed, Assessed \T\ reinforced patient's understanding of fall precautions, Provided non-skid footwear, Hourly rounding (assess needs \T\ fall precautionary measures) done, Used ambulatory aids as needed (educated on \T\ assisted with), Used gait belt as appropriate. Abuse screen: Denies threats or abuse. Denies injuries from another. Nutritional screening: No deficits noted. Tuberculosis screening: No symptoms or risk factors identified. Assessment: 13:30 General: Appears in no apparent distress. uncomfortable, Behavior is cooperative, ko1 appropriate for age. Pain: Complains of pain in right occipital area and right side of the back of head and left occipital area. Neuro: Reports headache in right in left occipital area. Cardiovascular: No deficits noted. Respiratory: No deficits noted. GI: No deficits noted. : No deficits noted. EENT: No deficits noted. Derm: No deficits noted. Musculoskeletal: No deficits noted. Vital Signs: 13:22 BP 164 / 96; Pulse 86; Resp 16; Temp 98.2; Pulse Ox 98% on R/A; Weight 99.79 kg; Height iw 5 ft. 11 in. ; Pain 8/10; 15:05 BP 158 / 84; Pulse 82; Resp 14; Pulse Ox 99% ; ko1 13:22 Body Mass Index 30.68 (99.79 kg, 180.34 cm) iw 13:22 Pain Scale: Adult iw ED Course: 13:16 Patient arrived in ED. mr 13:18 Shamika Jain, NOÉ is [facility] 13:18 Junior Patel MD is Attending Physician. [facility] 13:23 Triage completed. iw 13:24 Arm band placed on. iw 13:30 Patient has correct armband on for positive identification. Bed in low position. Call ko1 light in reach. Side rails up X2. Provided Education on: na. Client placed on continuous cardiac and pulse oximetry monitoring. NIBP monitoring applied. monitoring tech on. Door closed. Noise minimized. Lights dimmed. Warm blanket given. 13:35 Inserted saline lock: 22 gauge in right antecubital area, using aseptic technique. mb4 13:38 Elena Morris, DINAH is Primary Nurse. ko1 13:44 CT Head Brain wo Cont In Process Unspecified. EDMS 14:01 CBC with Diff Sent. ko1 14:01 BMP Sent. ko1 15:06 No provider procedures requiring assistance completed. ko1 15:07 Dionte Delacruz MD is Referral Physician. jh7 15:09 IV discontinued, intact, bleeding controlled, No redness/swelling at site. Pressure ko1 dressing applied. Administered Medications: 13:51 Drug: MethylPrednisoLONE IVP 125 mg IVP once Route: IVP; Site: right antecubital; ko1 13:51 Drug: metoCLOPramide IVP 10 mg IVP once; over 1 to 2 minutes Route: IVP; Site: right ko1 antecubital; 13:52 Drug: NS 0.9% IV 1000 ml IV at 1 bolus Per protocol; 1000 mL bolus Route: IV; Rate: 1 ko1 bolus; Site: right antecubital; 13:52 Drug: diphenhydrAMINE IVP 50 mg IVP once Route: IVP; Site: right antecubital; ko1 Medication: 15:05 VIS not applicable for this client. ko1 Outcome: 15:07 Discharge ordered by . jh7 15:09 Discharged to home ambulatory, ko1 15:09 Condition: improved 15:09 Discharge instructions given to patient, Instructed on discharge instructions, follow up and referral plans. medication usage, Demonstrated understanding of instructions, follow-up care, medications, Prescriptions given X 1, 15:16 Patient left the ED. ko1 Signatures: Dispatcher [employer] EDNM Nilesh Shira, Reg Reg mr Niecy Ortiz, RN RN Meron Graff mb4 Shamika Jain, COMPANY MARKER COMPANY MARKER [facility] Elena Morris, RN RN ko1 Corrections: (The following items were deleted from the chart) 13:26 13:22 BP 164 / 96; Pulse 86bpm; Resp 16bpm; Pulse Ox 98% RA; iw iw
--- NOTE | 2023-10-19 15:07 | EDPHYS ---
Physician Documentation [facility] Name: Brian Dent Age: 47 yrs Sex: Male : 1975 Arrival Date: 10/19/2023 Time: 13:14 Bed 8 Private MD: KWADWO Physician Junior Patel HPI: 10/19 13:22 This 47 yrs old Male presents to ER via Ambulatory with complaints of Headache. [facility] 13:22 The patient complains of pain to the left occipital area, right side of the back of jh7 head and right occipital area. The patient describes the headache as constant, pounding, throbbing. Onset: The symptoms/episode began/occurred 1 month(s) ago. Associated signs and symptoms: Pertinent positives: nausea, Photophobia Pertinent negatives: altered mental status, vision changes, vision loss, vomiting. Patient reports migraine headache for 1 month. He denies that the symptoms have worsened, but states that they have not gone away. Reports photo and phonophobia. States that he has been taking Excedrin with no relief. History of hypertension.. Historical: - Allergies: 13:23 GRAPEFRUIT; iw 13:23 Ibuprofen; interacts with heart med; iw - PMHx: 13:23 Heart condition; Hypercholesterolemia; Hypertensive disorder; Myocardial infarction; iw - PSHx: 13:23 Appendectomy; iw - Immunization history:: Client reports receiving the 2nd dose of the Covid vaccine. - Social history:: Smoking status: Smoking status: Patient reports the use of cigarette tobacco products. ROS: 13:22 Constitutional: Negative for fever, chills, and weight loss, ENT: Negative for injury, jh7 pain, and discharge, Neck: Negative for injury, pain, and swelling, Cardiovascular: Negative for chest pain, palpitations, and edema, Respiratory: Negative for shortness of breath, cough, wheezing, and pleuritic chest pain, MS/Extremity: Negative for injury and deformity, Skin: Negative for injury, rash, and discoloration, 13:22 Eyes: Positive for photophobia, Negative for vision loss, visual disturbance, 13:22 Abdomen/GI: Positive for nausea, Negative for vomiting, 13:22 Neuro: Positive for headache, Negative for altered mental status, dizziness, visual changes, 13:22 All other systems are negative, Exam: 13:22 Constitutional: This is a well developed, well nourished patient who is awake, alert, jh7 and in no acute distress. Head/Face: Normocephalic, atraumatic. Eyes: Pupils equal round and reactive to light, extra-ocular motions intact. Lids and lashes normal. Conjunctiva and sclera are non-icteric and not injected. Cornea within normal limits. Periorbital areas with no swelling, redness, or edema. Cardiovascular: Regular rate and rhythm with a normal S1 and S2. No gallops, murmurs, or rubs. Normal PMI, no JVD. No pulse deficits. Respiratory: Lungs have equal breath sounds bilaterally, clear to auscultation and percussion. No rales, rhonchi or wheezes noted. No increased work of breathing, no retractions or nasal flaring. Abdomen/GI: Soft, non-tender, with normal bowel sounds. No distension or tympany. No guarding or rebound. No evidence of tenderness throughout. Skin: Warm, dry with normal turgor. Normal color with no rashes, no lesions, and no evidence of cellulitis. MS/ Extremity: Pulses equal, no cyanosis. Neurovascular intact. Full, normal range of motion. Neuro: Awake and alert, GCS 15, oriented to person, place, time, and situation. Cranial nerves II-XII grossly intact. Motor strength 5/5 in all extremities. Sensory grossly intact. Cerebellar exam normal. Normal gait. Vital Signs: 13:22 BP 164 / 96; Pulse 86; Resp 16; Temp 98.2; Pulse Ox 98% on R/A; Weight 99.79 kg; Height iw 5 ft. 11 in. ; Pain 8/10; 15:05 BP 158 / 84; Pulse 82; Resp 14; Pulse Ox 99% ; ko1 13:22 Body Mass Index 30.68 (99.79 kg, 180.34 cm) iw 13:22 Pain Scale: Adult iw MDM: 13:18 Patient medically screened. [facility] 15:08 Differential diagnosis: cluster headache, cerebral vascular accident, meningitis, jh7 migraine, subdural hematoma, tension headache. Data reviewed: vital signs, nurses notes, lab test result(s), radiologic studies, CT scan. I considered the following discharge prescriptions or medication management in the emergency department Medications were administered in the Emergency Department. See MAR. Care significantly affected by the following chronic conditions: Hypertension. Counseling: I had a detailed discussion with the patient and/or guardian regarding the historical points, exam findings, and any diagnostic results supporting the discharge/admit diagnosis, to return to the emergency department if symptoms worsen or persist or if there are any questions or concerns that arise at home. Response to treatment: the patient's symptoms have resolved after treatment, the patient's pain is gone. 10/19 13:53 Order name: BMP; Complete Time: 15:06 [facility] 10/19 13:53 Order name: CBC with Diff; Complete Time: 14:39 [facility] 10/19 13:27 Order name: CT Head Brain wo Cont; Complete Time: 13:52 [facility] Administered Medications: 13:51 Drug: MethylPrednisoLONE IVP 125 mg IVP once Route: IVP; Site: right antecubital; ko1 13:51 Drug: metoCLOPramide IVP 10 mg IVP once; over 1 to 2 minutes Route: IVP; Site: right ko1 antecubital; 13:52 Drug: NS 0.9% IV 1000 ml IV at 1 bolus Per protocol; 1000 mL bolus Route: IV; Rate: 1 ko1 bolus; Site: right antecubital; 13:52 Drug: diphenhydrAMINE IVP 50 mg IVP once Route: IVP; Site: right antecubital; ko1 Disposition Summary: 10/19/23 15:07 Discharge Ordered Notes: Location: Home [facility] Problem: new [facility] Symptoms: have improved [facility] Condition: Stable [facility] Diagnosis - Migraine without aura, not intractable [facility] Followup: [facility] - With: Dionte Delacruz MD - When: 2 - 3 days - Reason: Recheck today's complaints Discharge Instructions: - Discharge Summary Sheet [facility] - Migraine Headache [facility] Forms: - Medication Reconciliation Form [facility] - Thank You Letter [facility] - Patient Portal Instructions [facility] - Leadership Thank You Letter [facility] Prescriptions: - Medrol (Dangelo) 4 mg Oral Tablets, Dose Pack - take 1 tablet ORAL route as directed - follow package instructions; 1 packet; [facility] Refills: 0, Product Selection Permitted Signatures: Dispatcher [employer] Niecy Brown, Shamika Platt RN, FNP MANUFACTURING [employer]CH[employer]OLOGY ANALYST [facility] Elena Morris RN RN ko1
[2023-10-19 15:20] VITALS: TEMP 98.2
[2023-10-19 15:22] VITALS: BP 158/84; O2SAT 99
== END 2023-10-19 15:16 | disposition home or self-care (01) ==
LOC: ER 13:14
DX: G43.009 Migraine without aura, not intractable, without status migrainosus (principal); F17.210 Nicotine dependence, cigarettes, uncomplicated; E78.00 Pure hypercholesterolemia, unspecified; I10 Essential (primary) hypertension; I25.2 Old myocardial infarction
CPT/HCPCS: 36415; 70450; 80048; 85025; 96374; 96375; 99285; J1200; J2765; J2930; J7030

== ENCOUNTER 2023-11-04 16:55 | Emergency (ER) | payer SELFPAY ==
--- OUTSIDE RECORDS SUMMARY | 2023-11-04 16:56 | XMS REPORT | Continuity of Care Document ---
:[address] [facility] t Address [address] [place] [address] Care Team Providers Name Role Phone Pcp, Patient Does Not Have A Primary Care Physician [id number] CHELSEA HENRIQUEZ Attending Clinician Unavailable Chelsea Mock Attending Clinician Doctor Unassigned, [place] Attending Clinician Unavailable Problems Condition Condition Condition Status Onset Resolution Last Treating Co mments Source Name Details Category Date Date Treatment Clinician Date No known No known Disease Unive rs active active ity of problems problems [facility] Allergies, Adverse Reactions, Alerts Allergy Allergy Status [...] Quantity Comments Source Exposure to Not sure [facility] SARS-CoV-2 (event) Medica l Branch Sex Assigned At [birth year] [facility] 00:00:00 00:00:00 Medical Branch Smoking Status Start Date Stop Date Source Unknown if ever smoked [facility] Medications Ordered Filled Start Stop Current [...] blood 2021-11-03 02:38:00 135 mm[Hg] [facility] Diastolic blood 2021-11-03 02:38:00 80 mm[Hg] [facility] Heart rate 2021-11-03 02:38:00 90 /min [facility] Body temperature 2021-11-03 02:38:00 36.61 Farzana [facility] rate 2021-11-03 02:38:00 20 /min [facility] Body height 2021-11-03 02:38:00 180.3 cm [facility] Body weight 2021-11-03 02:38:00 94.394 kg [facility] BMI 2021-11-03 02:38:00 29.02 kg/m2 [facility] Oxygen saturation in 2021-11-03 02:38:00 99 /min [facility] Arterial blood by [facility] Pulse oximetry [place] Procedures Procedure Date / Time Performed Performing Clinician Sour e POCT RAPID FLU A AND 2021-11-03 02:40:00 Chelsea Henriquez [facility] CONSENT/REFUSAL FOR 2021-11-03 02:28:35 Doctor Unassigned, No Un [facility] DIAGNOSIS AND Name Medical Branch TREATMENT Encounters Start End Encounter Admission Attending Care Care Encounter Source Date/Time Date/Time Type Type Clinicians Facility Department ID 2021-11-02 2021-11-02 Outpatient R [facility] [id number] [facility] 20:40:00 20:53:44 [facility] 2021-11-02 2021-11-02 Urgent Martinez [facility] [id number] [facility] 20:29:16 20:53:[address] [facility] [id number] it y of [place] [id number] Agustin as DAO?BLEA [id number] [address] MEDICAL OFFICE BUILDING 2021-11-02 2021-11-02 Orders Doctor MARGUERITE [id number] [facility] 00:00:00 00:00:00 Only Unassigned, S[place] [id number] ity of [place] [facility] [id number] Agustin as [id number] [place] [address] Branch Results Test Description Test Time Test [...] controls Lab Interpretation (test code = Normal 32700-6) [facility]
[2023-11-04] MEDS ORDERED: ACETAMINOPHEN 500 MG TAB ONE (18:01)
[2023-11-04 18:32] LABS: SARS-CoV-2 Antigen Rapid Res Positive (Negative)
--- NOTE | 2023-11-04 18:40 | ER ---
Nurse's Notes [facility] Name: Brian Dent Age: 47 yrs Sex: Male : 1975 Arrival Date: 11/04/2023 Time: 16:55 Bed DX5 Private MD: Diagnosis: SARS-associated coronavirus as the cause of diseases classified elsewhere Presentation: 11/04 17:41 Chief complaint: Patient states: dont feel good, fever chill, headache , cough, started iw last night , had tylenol this morning. Coronavirus screen: Client presents with at least one sign or symptom that may indicate coronavirus-19. Ebola Screen: Patient negative for fever greater than or equal to 101.5 degrees Fahrenheit, and additional compatible Ebola Virus Disease symptoms Patient denies exposure to infectious person. Patient denies travel to an Ebola-affected area in the 21 days before illness onset. No symptoms or risks identified at this time. Initial Sepsis Screen: Does the patient meet any 2 criteria? No. Patient's initial sepsis screen is negative. Does the patient have a suspected source of infection? No. Patient's initial sepsis screen is negative. Risk Assessment: Do you want to hurt yourself or someone else? Patient reports no desire to harm self or others. Onset of symptoms was November 03, 2023. 17:41 Method Of Arrival: Ambulatory iw 17:41 Acuity: JACQUIE 4 iw Triage Assessment: 19:00 General: Appears in no apparent distress. Behavior is calm, cooperative, appropriate hb for age. Pain: Denies pain. Historical: - Allergies: 17:42 GRAPEFRUIT; iw 17:42 Ibuprofen; interacts with heart med; iw - PMHx: 17:42 Hypercholesterolemia; Heart condition; Hypertensive disorder; Myocardial infarction; iw - PSHx: 17:42 Appendectomy; iw - Immunization history:: Adult Immunizations up to date. - Social history:: Smoking status: Patient denies any tobacco usage or history of. Screenin:12 [facility] ED Fall Risk Assessment (Adult) History of falling in the last 3 months, hb including since admission No falls in past 3 months (0 pts). Abuse screen: Denies threats or abuse. Denies injuries from another. Nutritional screening: No deficits noted. Tuberculosis screening: No symptoms or risk factors identified. Vital Signs: 17:41 Pulse 112; Resp 18; Temp 101.9; Pulse Ox 98% ; iw 17:49 BP 154 / 84; iw ED Course: 16:57 Patient arrived in ED. im 16:57 Hernán Friend MD is Attending Physician. sp3 17:42 Triage completed. iw 17:42 Arm band placed on. iw 20:12 Stephanie Graff RN is Primary Nurse. hb 20:12 Patient has correct armband on for positive identification. hb 20:12 No provider procedures requiring assistance completed. Patient did not have IV access hb during this emergency room visit. 20:13 Provided Education on: N/A. hb Administered Medications: 17:49 Drug: Acetaminophen PO 1000 mg PO once Route: PO; iw 20:14 Follow up: Response: No adverse reaction hb Outcome: 18:40 Discharge ordered by . sp3 20:12 Discharged to home ambulatory, hb 20:12 Condition: stable 20:12 Discharge instructions given to patient, Instructed on discharge instructions, follow up and referral plans. Demonstrated understanding of instructions, follow-up care, 20:14 Patient left the ED. hb Signatures: Niecy Ortiz RN RN Stephanie Graff, RN RN Hernán Friend MD MD sp3 Alba Shi im Corrections: (The following items were deleted from the chart) 17:43 17:41 Chief complaint: Patient states: dont feel good, fever chill, headache , cough, iw started last night iw
--- NOTE | 2023-11-04 18:41 | EDPHYS ---
Physician Documentation [facility] Name: Brian Dent Age: 47 yrs Sex: Male : 1975 Arrival Date: 11/04/2023 Time: 16:55 Bed DX5 Private MD: ED Physician Hernán Friend HPI: 11/04 18:38 This 47 yrs old Male presents to ER via Ambulatory with complaints of Flu Symptoms. sp3 18:38 47-year-old male with a history of hypertension, hyperlipidemia, prior [place] now presents sp3 to the ED with 1 day history of cough, fever, headache, chills. He denies any other symptoms including neck pain, chest pain, shortness of breath, abdominal pain, vomiting, diarrhea, known sick contacts, travel history, or any other signs or symptoms on ROS at this time.. Historical: - Allergies: 17:42 GRAPEFRUIT; iw 17:42 Ibuprofen; interacts with heart med; iw - PMHx: 17:42 Hypercholesterolemia; Heart condition; Hypertensive disorder; Myocardial infarction; iw - PSHx: 17:42 Appendectomy; iw - Immunization history:: Adult Immunizations up to date. - Social history:: Smoking status: Patient denies any tobacco usage or history of. ROS: 18:38 Eyes: Negative for injury, pain, redness, and discharge, Neck: Negative for injury, sp3 pain, and swelling, Cardiovascular: Negative for chest pain, palpitations, and edema, Abdomen/GI: Negative for abdominal pain, nausea, vomiting, diarrhea, and constipation, Back: Negative for injury and pain, MS/Extremity: Negative for injury and deformity, Skin: Negative for injury, rash, and discoloration, Neuro: Negative for headache, weakness, numbness, tingling, and seizure, Psych: Negative for depression, anxiety, suicide ideation, homicidal ideation, and hallucinations, Allergy/Immunology: Negative for hives, rash, and allergies, Endocrine: Negative for neck swelling, polydipsia, polyuria, polyphagia, and marked weight changes, Hematologic/Lymphatic: Negative for swollen nodes, abnormal bleeding, and unusual bruising, 18:38 All other systems are negative, Exam: 18:39 Head/Face: Normocephalic, atraumatic. Eyes: Pupils equal round and reactive to light, sp3 extra-ocular motions intact. Lids and lashes normal. Conjunctiva and sclera are non-icteric and not injected. Cornea within normal limits. Periorbital areas with no swelling, redness, or edema. Neck: Trachea midline, no thyromegaly or masses palpated, and no cervical lymphadenopathy. Supple, full range of motion without nuchal rigidity, or vertebral point tenderness. No Meningismus. Chest/axilla: Normal chest wall appearance and motion. Nontender with no deformity. No lesions are appreciated. Cardiovascular: Regular rate and rhythm with a normal S1 and S2. No gallops, murmurs, or rubs. Normal PMI, no JVD. No pulse deficits. Respiratory: Lungs have equal breath sounds bilaterally, clear to auscultation and percussion. No rales, rhonchi or wheezes noted. No increased work of breathing, no retractions or nasal flaring. Abdomen/GI: Soft, non-tender, with normal bowel sounds. No distension or tympany. No guarding or rebound. No evidence of tenderness throughout. Skin: Warm, dry with normal turgor. Normal color with no rashes, no lesions, and no evidence of cellulitis. MS/ Extremity: Pulses equal, no cyanosis. Neurovascular intact. Full, normal range of motion. Neuro: Awake and alert, GCS 15, oriented to person, place, time, and situation. Cranial nerves II-XII grossly intact. Motor strength 5/5 in all extremities. Sensory grossly intact. Cerebellar exam normal. Normal gait. Psych: Awake, alert, with orientation to person, place and time. Behavior, mood, and affect are within normal limits. Vital Signs: 17:41 Pulse 112; Resp 18; Temp 101.9; Pulse Ox 98% ; iw 17:49 BP 154 / 84; iw MDM: 17:49 Patient medically screened. sp3 18:39 Data reviewed: vital signs, nurses notes, lab test result(s). ED course: Differential sp3 diagnosis includes viral syndrome, COVID, flu, pneumonia, bronchitis. Rapid COVID test is positive and we will discharge patient on Paxlovid given his short onset of symptoms.. 11/04 17:21 Order name: SARS RAPID; Complete Time: 18:37 sp3 11/04 17:21 Order name: Flu; Complete Time: 18:37 sp3 Administered Medications: 17:49 Drug: Acetaminophen PO 1000 mg PO once Route: PO; iw 20:14 Follow up: Response: No adverse reaction hb Disposition Summary: 11/04/23 18:40 Discharge Ordered Notes: Location: Home sp3 Condition: Stable sp3 Diagnosis - SARS-associated coronavirus as the cause of diseases classified elsewhere sp3 Followup: sp3 - With: Private Physician - When: Upon discharge from the Emergency Department - Reason: Continuance of care Discharge Instructions: - Discharge Summary Sheet sp3 - COVID-19 sp3 Forms: - Work release form hb - Medication Reconciliation Form sp3 - Thank You Letter sp3 - Antibiotic Education sp3 - Prescription Opioid Use sp3 - Patient Portal Instructions sp3 - Leadership Thank You Letter sp3 Prescriptions: - Paxlovid 300 mg (150 mg x 2)-100 mg Oral Tablet, Dose Pack - take 1 dose pack ORAL route per package directions; 1 Blister; Refills: 0, sp3 Product Selection Permitted Signatures: Dispatcher [employer] Niecy Brown RN RN Stephanie Graff RN RN Hernán Friend MD MD sp3
[2023-11-04 20:20] VITALS: BP 154/84; TEMP 101.9; O2SAT 98
== END 2023-11-04 20:14 | disposition home or self-care (01) ==
LOC: ER 16:55
DX: U07.1 COVID-19 (principal)
CPT/HCPCS: 36415; 87804; 87811; 99283

== ENCOUNTER 2024-03-30 07:45 | Emergency (ER) | payer SELFPAY ==
[2024-03-30] MEDS ORDERED: TRAMADOL HCL 50 MG TAB ONE (08:45)
--- NOTE | 2024-03-30 09:29 | RAD REPORT ---
EXAM DESCRIPTION: RAD - Foot Right 3 View - 03/30/2024 8:14 am CLINICAL HISTORY: 1st toe injury COMPARISON: No comparisons FINDINGS: Soft tissue swelling is seen affecting the great toe. No acute fracture is seen. Moderate posterior and plantar calcaneal spurs.
--- NOTE | 2024-03-30 09:55 | ER ---
Nurse's Notes [facility] Name: Brian Dent Age: 48 yrs Sex: Male : 1975 Arrival Date: 03/30/2024 Time: 07:45 Bed 5 Private MD: Diagnosis: Sprain of interphalangeal joint of right great toe Presentation: 03/30 07:54 Chief complaint: Patient states: right big toe pain since Saturday, he tripped over a floor mat , 09/10 pain. 07:54 Acuity: JACQUIE 3 iw 07:54 Acuity: JACQUIE 4 iw 07:55 Coronavirus screen: At this time, the client does not indicate any symptoms associated iw with coronavirus-19. Ebola Screen: Patient negative for fever greater than or equal to 101.5 degrees Fahrenheit, and additional compatible Ebola Virus Disease symptoms Patient denies exposure to infectious person. Patient denies travel to an Ebola-affected area in the 21 days before illness onset. No symptoms or risks identified at this time. Initial Sepsis Screen: Does the patient meet any 2 criteria? No. Patient's initial sepsis screen is negative. Does the patient have a suspected source of infection? No. Patient's initial sepsis screen is negative. Risk Assessment: Do you want to hurt yourself or someone else? Patient reports no desire to harm self or others. 07:55 Method Of Arrival: Ambulatory iw 07:56 Onset of symptoms was March 28, 2024. iw Historical: - Allergies: 07:55 Ibuprofen; interacts with heart med; iw 07:55 GRAPEFRUIT; iw - PMHx: 07:55 Heart condition; Hypercholesterolemia; Hypertensive disorder; Myocardial infarction; iw - PSHx: 07:55 Appendectomy; iw - Immunization history:: Adult Immunizations unknown. - Infectious Disease History:: Denies. - Social history:: Smoking status: Patient reports the use of cigarette tobacco products. - Family history:: not pertinent. - Hospitalizations: : No recent hospitalization is reported. Screenin:14 [facility] ED Fall Risk Assessment (Adult) History of falling in the last 3 months, ph including since admission No falls in past 3 months (0 pts). Abuse screen: Denies threats or abuse. Denies injuries from another. Nutritional screening: No deficits noted. Tuberculosis screening: No symptoms or risk factors identified. Assessment: 08:48 General: Appears in no apparent distress. Behavior is calm, cooperative. Pain:. ph 08:48 Pain: Complains of pain in right first toe. Neuro: Level of Consciousness is awake, ph alert, obeys commands, Oriented to person, place, time, situation. Derm: Skin is pink, warm \T\ dry. Musculoskeletal: Circulation, motion, and sensation intact. Range of motion: intact in all extremities. Vital Signs: 07:55 BP 169 / 110; Pulse 86; Resp 16; Pulse Ox 98% on R/A; Pain 10/10; iw 10:40 BP 152 / 89; Pulse 81; Resp 18; Temp 97.9; Pulse Ox 99% on R/A; ph 07:55 Pain Scale: Adult iw ED Course: 07:47 Patient arrived in ED. rg4 07:47 Mitch Teague MD is Attending Physician. rn 07:55 Triage completed. iw 07:55 Arm band placed on. iw 08:14 Hillary Valentino RN is Primary Nurse. ph 08:16 XRAY Foot RIGHT 3 View In Process Unspecified. EDMS 08:52 Patient has correct armband on for positive identification. Bed in low position. Call ph light in reach. Door closed. Noise minimized. 08:53 No provider procedures requiring assistance completed. Patient did not have IV access ph during this emergency room visit. Administered Medications: 08:48 Drug: traMADol PO 50 mg PO once Route: PO; ph 10:39 Follow up: Response: No adverse reaction ph Medication: 08:52 VIS not applicable for this client. ph Outcome: 09:55 Discharge ordered by . rn 10:40 Discharged to home via wheelchair, ph 10:40 Condition: good 10:40 Discharge instructions given to patient, Instructed on discharge instructions, follow up and referral plans. medication usage, Demonstrated understanding of instructions, follow-up care, medications, Prescriptions given X 1, 10:40 Patient left the ED. ph Signatures: Dispatcher [employer] EDMS Niecy Ortiz RN RN iw Nieto, Roman, MD MD rn Hall, Patricia, RN RN ph Garcia, Rubi rg4 Corrections: (The following items were deleted from the chart) 07:56 07:54 Chief complaint: Patient states: right big toe pain since Saturday, he tripped iw over a floor mat , 09/10 pain iw
--- NOTE | 2024-03-30 09:55 | EDPHYS ---
Physician Documentation [facility] Name: Brian Dent Age: 48 yrs Sex: Male : 1975 Arrival Date: 03/30/2024 Time: 07:45 Bed 5 Private MD: ED Physician Mitch Teague HPI: 03/30 08:54 This 48 yrs old Male presents to ER via Ambulatory with complaints of Toe Injury. rn 08:54 The patient presents with an injury, pain. The complaints affect the right foot. Onset: rn The symptoms/episode began/occurred 2 day(s) ago. Modifying factors: The symptoms are alleviated by nothing, the symptoms are aggravated by weight bearing, movement. Severity of symptoms: At their worst the symptoms were moderate, in the emergency department the symptoms are unchanged. The patient has not experienced similar symptoms in the past. Patient reports caught right great toe on rug 2 days ago. Patient states pain since then. Has a history of gout but has never had gout in that toe. Also dropped a rivera or pot on his toe this morning and reinjured it. Patient hurts with weightbearing.. Historical: - Allergies: 07:55 Ibuprofen; interacts with heart med; iw 07:55 GRAPEFRUIT; iw - PMHx: 07:55 Heart condition; Hypercholesterolemia; Hypertensive disorder; Myocardial infarction; iw - PSHx: 07:55 Appendectomy; iw - Immunization history:: Adult Immunizations unknown. - Infectious Disease History:: Denies. - Social history:: Smoking status: Patient reports the use of cigarette tobacco products. - Family history:: not pertinent. - Hospitalizations: : No recent hospitalization is reported. ROS: 08:54 Constitutional: Negative for fever, chills, and weight loss, MS/Extremity: Positive for rn right great toe injury and pain Exam: 08:54 Constitutional: This is a well developed, well nourished patient who is awake, alert, rn and in no acute distress. MS/ Extremity: Pulses equal, no cyanosis. Neurovascular intact. Mild tenderness at MTP and interphalangeal joint of right great toe. No erythema or warmth. No significant swelling. No open wounds. No tenderness elsewhere. No abnormality noted of the nail or distal toe Vital Signs: 07:55 BP 169 / 110; Pulse 86; Resp 16; Pulse Ox 98% on R/A; Pain 10/10; iw 10:40 BP 152 / 89; Pulse 81; Resp 18; Temp 97.9; Pulse Ox 99% on R/A; ph 07:55 Pain Scale: Adult iw MDM: 07:47 Patient medically screened. rn 09:54 Differential diagnosis: fracture, sprain, gout. Data reviewed: vital signs, nurses rn notes, radiologic studies, plain films, and as a result, I will discharge patient. Counseling: I had a detailed discussion with the patient and/or guardian regarding the historical points, exam findings, and any diagnostic results supporting the discharge/admit diagnosis, radiology results, the need for outpatient follow up, to return to the emergency department if symptoms worsen or persist or if there are any questions or concerns that arise at home. Response to treatment: the patient's symptoms have mildly improved after treatment, and as a result, I will discharge patient. Special discussion: I discussed with the patient/guardian in detail that at this point there is no indication for admission to the hospital. It is understood, however, that if the symptoms persist or worsen the patient needs to return immediately for re-evaluation. 03/30 07:56 Order name: XRAY Foot RIGHT 3 View; Complete Time: 09:36 rn Administered Medications: 08:48 Drug: traMADol PO 50 mg PO once Route: PO; ph 10:39 Follow up: Response: No adverse reaction ph Disposition Summary: 03/30/24 09:55 Discharge Ordered Notes: Location: Home rn Problem: new rn Symptoms: have improved rn Condition: Stable rn Diagnosis - Sprain of interphalangeal joint of right great toe rn Followup: rn - With: Private Physician - When: As needed - Reason: Recheck today's complaints, Re-evaluation by your physician Discharge Instructions: - Discharge Summary Sheet rn - Foot Sprain rn Forms: - Medication Reconciliation Form rn - Antibiotic pleat patternmaker - Prescription Opioid Use rn - Patient Portal Instructions rn - Leadership Thank You Letter rn Prescriptions: - Tramadol 50 mg Oral Tablet - take 1 tablet ORAL route every 8 hours as needed; 12 tablet; Refills: 0, rn Product Selection Permitted Signatures: Dispatcher [employer] Niecy Brown RN RN iw Mitch Teague MD MD rn Hall, Patricia, RN RN ph
[2024-03-30 10:55] VITALS: BP 152/89; TEMP 97.9; O2SAT 99
== END 2024-03-30 10:40 | disposition home or self-care (01) ==
LOC: ER 07:45
DX: S93.511A Sprain of interphalangeal joint of right great toe, initial encounter (principal)
CPT/HCPCS: 99283

== ENCOUNTER 2024-10-29 00:30 | Emergency (ER) | payer SELFPAY ==
[2024-10-29] MEDS ORDERED: HYDROCODONE/APAP 5/325 MG TAB ONE (02:32)
[2024-10-29] MEDS ORDERED: methocarbamoL 750 MG TAB ONE (02:32)
[2024-10-29] MEDS ORDERED: predniSONE 20 MG TAB ONE (02:32)
[2024-10-29 03:41] LABS: Anion Gap 9.5 mEq/L (5.0-15.0); Uric Acid 5.3 mg/dL (3.5-7.2)
[2024-10-29 03:42] LABS: Potassium 3.5 mEq/L (3.5-5.1)
--- NOTE | 2024-10-29 04:07 | ER ---
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 ha1 00:48 Coronavirus screen: Vaccine status: Patient reports receiving the 2nd dose of the covid ha1 vaccine. Ebola Screen: No symptoms or risks identified at this time. Initial Sepsis Screen: Does the patient meet any 2 criteria? No. Patient's initial sepsis screen is negative. Does the patient have a suspected source of infection? No. Patient's initial sepsis screen is negative. Risk Assessment: Do you want to hurt yourself or someone else? Patient reports no desire to harm self or others. Onset of symptoms was October 29, 2024. 00:48 Method Of Arrival: Ambulatory ha1 00:48 Acuity: JACQUIE 4 ha1 Triage Assessment: 00:48 General: Appears uncomfortable, Behavior is calm, cooperative. Pain: Complains of pain ha1 in right hand Pain does not radiate. Pain currently is 10 out of 10 on a pain scale. Quality of pain is described as aching. Neuro: Level of Consciousness is awake, alert, obeys commands, Oriented to person, place, time, situation. Cardiovascular: Patient's skin is warm and dry. Respiratory: Airway is patent Respiratory effort is even, unlabored, Respiratory pattern is regular, symmetrical. GI: No signs and/or symptoms were reported involving the gastrointestinal system. Abdomen is round non-distended. Musculoskeletal: Swelling present in right hand. Historical: - Allergies: 00:48 GRAPEFRUIT; ha1 00:48 Ibuprofen; interacts with heart med; ha1 - Home Meds: 00:48 lisinopril 2.5 mg Oral tab 1 tab once daily [Active]; lisinopril Oral [Active]; ha1 nitroglycerin 2.5 mg Oral cpER [Active]; - PMHx: 00:48 Heart condition; Hypercholesterolemia; Hypertensive disorder; Myocardial infarction; ha1 - PSHx: 00:48 Appendectomy; ha1 - Immunization history:: Adult Immunizations up to date. - Infectious Disease History:: Denies. - Social history:: Smoking status: Patient reports the use of cigarette tobacco products, smokes one-half pack cigarettes per day. - Family history:: not pertinent. Screenin:48 [facility] ED Fall Risk Assessment (Adult) History of falling in the last 3 months, kl including since admission No falls in past 3 months (0 pts) Confusion or Disorientation No (0 pts) Intoxicated or Sedated No (0 pts) Impaired Gait No (0 pts) Mobility Assist Device Used No (0 pt) Altered Elimination No (0 pt) Score/Fall Risk Level 0 - 2 = Low Risk. Abuse screen: Denies threats or abuse. Nutritional screening: No deficits noted. Tuberculosis screening: No symptoms or risk factors identified. Assessment: 02:45 General: Appears uncomfortable, well groomed, well developed, Behavior is calm, kl cooperative. Pain: Complains of pain in right hand Pain currently is 8 out of 10 on a pain scale. Quality of pain is described as aching. Neuro: No deficits noted. Cardiovascular: No deficits noted. Respiratory: No deficits noted. GI: No deficits noted. No signs and/or symptoms were reported involving the gastrointestinal system. : No deficits noted. No signs and/or symptoms were reported regarding the genitourinary system. EENT: No deficits noted. No signs and/or symptoms were reported regarding the EENT system. Derm: No deficits noted. No signs and/or symptoms reported regarding the dermatologic system. Musculoskeletal: Reports pain in right hand. 04:14 Reassessment: Patient appears in no apparent distress at this time. Patient is alert, kl oriented x 3, equal unlabored respirations, skin warm/dry/pink. Vital Signs: 00:48 BP 158 / 92; Pulse 79; Resp 18 S; Temp 98.3(O); Pulse Ox 96% on R/A; Weight 97.98 kg; ha1 04:14 BP 160 / 90; Pulse 69; Resp 18; Pulse Ox 97% on R/A; kl [place] Coma Score: 23:19 Eye Response: spontaneous(4). Motor Response: obeys commands(6). Verbal Response: sp4 oriented(5). Total: 15. ED Course: 00:34 Patient arrived in ED. gm2 00:57 Triage completed. ha1 01:05 Vaibhav Solano MD is Attending Physician. sp4 02:41 Hand Right 3 View XRAY In Process Unspecified. EDMS 02:44 BMP Sent. kl 02:44 Uric Acid Sent. kl 02:47 Patient has correct armband on for positive identification. kl 03:42 Byron Trujillo, RN is Primary Nurse. bm8 04:04 Rae Arroyo MD is Referral Physician. sp4 04:14 No provider procedures requiring assistance completed. Patient did not have IV access kl during this emergency room visit. Administered Medications: 02:44 Drug: predniSONE PO 60 mg PO once Route: PO; kl 04:13 Follow up: Response: No adverse reaction kl 02:44 Drug: Methocarbamol PO 750 mg PO once Route: PO; kl 04:13 Follow up: Response: No adverse reaction; Marked relief of symptoms kl 02:45 Drug: HYDROcodone-acetaminophen PO 5 mg-325 mg 2 tabs PO once Route: PO; kl 04:13 Follow up: Response: No adverse reaction; Marked relief of symptoms kl Outcome: 04:07 Discharge ordered by . sp4 04:16 Discharged to home ambulatory, kl 04:16 Condition: improved 04:16 Discharge instructions given to patient, Instructed on discharge instructions, follow up and referral plans. medication usage, Demonstrated understanding of instructions, follow-up care, medications, Prescriptions given X 4, 04:16 Patient left the ED. kl Signatures: Dispatcher [employer] EDMS Bing Blackwell RN RN Linda Landa RN RN 1 Vaibhav Solano MD MD sp4 Anayeli Kemp 2 Byron Trujillo, RN RN bm8 Corrections: (The following items were deleted from the chart) 01:00 00:48 BP 177 / 103; Pulse 79bpm; Resp 18bpm; Spontaneous; Pulse Ox 96% RA; Temp 98.3F ha1 Oral; 97.98 kg; ha1
--- NOTE | 2024-10-29 04:07 | EDPHYS ---
Physician Documentation [facility] Name: Brian Dent Age: 48 yrs Sex: Male : 1975 Arrival Date: 10/29/2024 Time: 00:30 Bed DX2 Private MD: ED Physician Vaibhav Solano HPI: 10/29 01:06 This 48 yrs old Male presents to ER via Ambulatory with complaints of Hand sp4 Swelling, Hand Pain. 02:11 Right hand pain and swelling at the middle finger knuckle for the past several days.. sp4 23:19 Patient presents with right hand pain and swelling her right dorsal hand third distal sp4 metacarpal at the right middle finger metacarpal phalangeal joint. Denied injury or puncture wound.. Historical: - Allergies: 00:48 GRAPEFRUIT; ha1 00:48 Ibuprofen; interacts with heart med; ha1 - Home Meds: 00:48 lisinopril 2.5 mg Oral tab 1 tab once daily [Active]; lisinopril Oral [Active]; ha1 nitroglycerin 2.5 mg Oral cpER [Active]; - PMHx: 00:48 Heart condition; Hypercholesterolemia; Hypertensive disorder; Myocardial infarction; ha1 - PSHx: 00:48 Appendectomy; ha1 - Immunization history:: Adult Immunizations up to date. - Infectious Disease History:: Denies. - Social history:: Smoking status: Patient reports the use of cigarette tobacco products, smokes one-half pack cigarettes per day. - Family history:: not pertinent. ROS: 23:19 Constitutional: Negative for fever, chills, and weight loss, positive right hand pain sp4 and swelling right dorsal hand. Eyes: Negative for injury, pain, redness, and discharge, 23:19 All other systems are negative, Exam: 23:19 Constitutional: This is a well developed, well nourished patient who is awake, alert, sp4 and in no acute distress. Head/Face: Normocephalic, atraumatic. Eyes: Pupils equal round and reactive to light, extra-ocular motions intact. Lids and lashes normal. Conjunctiva and sclera are not injected. Cornea within normal limits. Periorbital areas with no swelling, redness, or edema. ENT: Nares patent. No nasal discharge, no septal abnormalities noted. Tympanic membranes are normal and external auditory canals are clear. Oropharynx with no redness, swelling, or masses, exudates, or evidence of obstruction, uvula midline. Mucous membranes moist. Neck: Trachea midline, no thyromegaly or masses palpated, and no cervical lymphadenopathy. Supple, full range of motion without nuchal rigidity, or vertebral point tenderness. Chest/axilla: Normal chest wall appearance and motion. Nontender with no deformity. No lesions are appreciated. Cardiovascular: Regular rate and rhythm with a normal S1 and S2. No gallops, murmurs, or rubs. Normal PMI, no JVD. No pulse deficits. Respiratory: Lungs have equal breath sounds bilaterally, clear to auscultation and percussion. No rales, rhonchi or wheezes noted. No increased work of breathing, no retractions or nasal flaring. Abdomen/GI: Soft, with normal bowel sounds. No distension or tympany. No guarding or rebound. No evidence of tenderness throughout. Back: No spinal tenderness. No costovertebral tenderness. Skin: Warm, dry with normal turgor. Normal color with no rashes, no lesions, and no evidence of cellulitis. MS/ Extremity: Pulses equal, no cyanosis. Neurovascular intact. Full, normal range of motion. Positive for right hand pain and swelling at the dorsum of the right hand and the right middle finger metacarpal phalangeal joint. Normal range of motion. Neuro: Awake and alert, GCS 15, oriented to person, place, time, and situation. Cranial nerves II-XII grossly intact. Motor strength 5/5 in all extremities. Sensory grossly intact. Psych: Awake, alert, with orientation to person, place and time. Behavior, mood, and affect are within normal limits Vital Signs: 00:48 BP 158 / 92; Pulse 79; Resp 18 S; Temp 98.3(O); Pulse Ox 96% on R/A; Weight 97.98 kg; ha1 04:14 BP 160 / 90; Pulse 69; Resp 18; Pulse Ox 97% on R/A; kl [place] Coma Score: 23:19 Eye Response: spontaneous(4). Motor Response: obeys commands(6). Verbal Response: sp4 oriented(5). Total: 15. Procedures: 23:27 Splinting: Splint applied to right wrist, right hand and palmar aspect of right forearm sp4 using wrist splint, Velcro pre fabricated wrist splint . applied by myself. Examined by me, post splint application: neurovascular intact, 2+ distal pulses palpable, brisk capillary refill noted, Patient tolerated well, Advised splint for 2 weeks . MDM: 01:06 Medical Screening Exam initiated sp4 04:00 ED course: EXAM: XR Right Hand Complete, 3 or More Views CLINICAL HISTORY: PAIN sp4 TECHNIQUE: Frontal, lateral and oblique views of the right hand. COMPARISON: XR Hand dated 04/18/2023 FINDINGS: Bones/joints: Remote fifth metacarpal fracture deformity again demonstrated. No dislocation. Soft tissues: Unremarkable. No radiopaque foreign body. IMPRESSION: No acute injury. Electronically signed by: Nancy Jarrell MD 10/29/2024 03:34 AM C. 23:21 Differential diagnosis: dislocation, open fracture, closed fracture, contusion, sp4 abrasion, tendonitis. 23:22 Data reviewed: vital signs, nurses notes, lab test result(s), radiologic studies, plain sp4 films. ED course: EXAM: XR Right Hand Complete, 3 or More Views CLINICAL HISTORY: PAIN TECHNIQUE: Frontal, lateral and oblique views of the right hand. COMPARISON: XR Hand dated 04/18/2023 FINDINGS: Bones/joints: Remote fifth metacarpal fracture deformity again demonstrated. No dislocation. Soft tissues: Unremarkable. No radiopaque foreign body. IMPRESSION: No acute injury. Electronically signed by: Nancy Jarrell MD 10/29/2024 03:34 AM [facility] Due to temporary technical issues with the PACS/[employer] reporting system, reports are being signed by the in-house radiologist without review as a courtesy to ensure prompt reporting the interpreting radiologist is fully responsible for the content of the report. Transcribed Date/Time: 10/29/2024 5:24 AM. 23:28 ED course: Patient has possible tendinitis, versus tenosynovitis, versus just acute sp4 arthritis. ED course: Patient will be covered with Bactrim and Keflex in case this is early tenosynovitis or cellulitis. . 10/29 02:11 Order name: Uric Acid; Complete Time: 03:56 sp4 10/29 02:11 Order name: BMP; Complete Time: 03:56 sp4 10/29 02:11 Order name: Hand Right 3 View XRAY sp4 10/29 04:03 Order name: Wrist Splint sp4 Administered Medications: 02:44 Drug: predniSONE PO 60 mg PO once Route: PO; kl 04:13 Follow up: Response: No adverse reaction kl 02:44 Drug: Methocarbamol PO 750 mg PO once Route: PO; kl 04:13 Follow up: Response: No adverse reaction; Marked relief of symptoms kl 02:45 Drug: HYDROcodone-acetaminophen PO 5 mg-325 mg 2 tabs PO once Route: PO; kl 04:13 Follow up: Response: No adverse reaction; Marked relief of symptoms kl Disposition: 23:22 Chart complete. 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 , Acute right sp4 hand third M C P joint arthritis Followup: sp4 - With: Rae Arroyo MD - When: 7 - 10 days - Reason: Recheck today's complaints Discharge Instructions: - Discharge Summary Sheet sp4 - Joint Pain, [id number] sp4 Forms: - Patient Portal Instructions sp4 Prescriptions: - Cephalexin 500 mg Oral Capsule - take 1 capsule ORAL route every 12 hours for 10 days; 20 capsule; Refills: 0, sp4 Product Selection Permitted - Prednisone 20 mg Oral Tablet - take 1 tablet ORAL route once daily for 5 days; 5 tablet; Refills: 0, Product sp4 Selection Permitted - Tramadol 50 mg Oral tablet - take 1 tablet ORAL route every 8 hours as needed; 20 tablet; Refills: 0, sp4 Product Selection Permitted - Bactrim DS 800-160 mg Oral Tablet - take 1 tablet ORAL route every 12 hours for 10 days; 20 tablet; Refills: 0, sp4 Product Selection Permitted Signatures: Dispatcher [employer] Bing Chavarria RN RN kl Ayala, Heidy, RN RN ha1 Vaibhav Solano MD MD sp4 Corrections: (The following items were deleted from the chart) 02:12 02:12 URIC ACID+C.LAB.BRZ ordered. EDMS EDMS 02:12 02:12 BASIC METABOLIC PANEL+C.LAB.BRZ ordered. EDMS EDMS
[2024-10-29 05:21] VITALS: TEMP 98.3
[2024-10-29 05:22] VITALS: BP 160/90; O2SAT 97
--- NOTE | 2024-10-29 05:25 | RAD REPORT ---
EXAM: XR Right Hand Complete, 3 or More Views CLINICAL HISTORY: PAIN TECHNIQUE: Frontal, lateral and oblique views of the right hand. COMPARISON: XR Hand dated 04/18/2023 FINDINGS: Bones/joints: Remote fifth metacarpal fracture deformity again demonstrated. No dislocation. Soft tissues: Unremarkable. No radiopaque foreign body. IMPRESSION: No acute injury. Electronically signed by: Nancy Jarrell MD 10/29/2024 03:34 AM [facility] Due to temporary technical issues with the [employer] reporting system, reports are being aye d by the in-house radiologist without review as a courtesy to ensure prompt reporting the interpreting radiologist is fully responsible for the content of the report. Transcribed Date/Time: 10/29/2024 5:24 AM
== END 2024-10-29 04:16 | disposition home or self-care (01) ==
LOC: ER 00:30
DX: M13.841 Other specified arthritis, right hand (principal)
CPT/HCPCS: 36415; 80048; 84550; 99283; J7512

== ENCOUNTER 2025-01-06 16:40 | Emergency (ER) | payer SELFPAY ==
[2025-01-06] MEDS ORDERED: dexAMETHasone 10 MG/ML VIAL ONE (19:30)
[2025-01-06] MEDS ORDERED: COLCHICINE 0.6 MG TAB ONE (19:30)
--- NOTE | 2025-01-06 20:13 | RAD REPORT ---
EXAM: XR Wrist Left 3 View HISTORY: [facility] MAIN PAIN Bed Name: [id number] COMPARISON: None TECHNIQUE: 3 views of the left wrist. FINDINGS: No evidence of acute fracture or dislocation. Joint alignment is maintained. No soft tissue swelling is seen. No significant degenerative changes are present. IMPRESSION: No evidence of acute osseous abnormality.
--- NOTE | 2025-01-06 20:39 | EDPHYS ---
Physician Documentation [facility] Name: Brian Dent Age: 49 yrs Sex: Male : 1975 Arrival Date: 01/06/2025 Time: 16:40 Bed DX3 Private MD: ED Physician Junior Patel HPI: 01/06 21:56 This 49 yrs old Male presents to ER via Ambulatory with complaints of Wrist Pain. kb 21:56 Pt is a 49 year old male who presents for left wrist pain that started 2 days ago. kb Denies injury or trauma. Denies fever. . Historical: - Allergies: 17:13 GRAPEFRUIT; cm10 17:13 Ibuprofen; interacts with heart med; cm10 - PMHx: 17:13 Heart condition; Hypercholesterolemia; Hypertensive disorder; Myocardial infarction; cm10 - PSHx: 17:13 Appendectomy; cm10 - Immunization history:: Adult Immunizations up to date. - Infectious Disease History:: Denies. - Social history:: Smoking status: Patient reports the use of cigarette tobacco products, smokes one-half pack cigarettes per day. ROS: 21:56 Constitutional: As per HPI kb Exam: 21:56 Constitutional: This is a well developed, well nourished patient who is awake, alert, kb and in no acute distress. Head/Face: Normocephalic, atraumatic. ENT: Moist Mucous membranes Cardiovascular: Regular rate Respiratory: Respirations even and unlabored. No increased work of breathing. Talking in full sentences Skin: Warm, dry with normal turgor. Normal color. Neuro: Awake and alert, GCS 15, oriented to person, place, time, and situation. 21:56 Musculoskeletal/extremity: Extremities: grossly normal except: noted in the left wrist: decreased ROM, pain, tenderness, ROM: limited active range of motion due to pain, Circulation is intact in all extremities. Sensation intact. Vital Signs: 17:11 BP 169 / 107; Pulse 81; Resp 15; Temp 98.1; Pulse Ox 98% on R/A; Weight 97.98 kg; cm10 Height 5 ft. 11 in. ; Pain 8/10; 20:55 BP 161 / 91; Pulse 84; Resp 16 S; Temp 98.4(O); Pulse Ox 99% on R/A; lg3 17:11 Body Mass Index 30.13 (97.98 kg, 180.34 cm) cm10 17:11 Pain Scale: Adult cm10 MDM: 16:44 Medical Screening Exam initiated kb 21:57 Differential diagnosis: fracture, sprain, gout. Data reviewed: vital signs, nurses kb notes. Counseling: I had a detailed discussion with the patient and/or guardian regarding the historical points, exam findings, and any diagnostic results supporting the discharge/admit diagnosis, radiology results, the need for outpatient follow up, a orthopedic surgeon, to return to the emergency department if symptoms worsen or persist or if there are any questions or concerns that arise at home. ED course: No swelling, erythema or warmth to wrist. 01/06 17:14 Order name: Wrist Left (3 View) XRAY; Complete Time: 20:18 kb 01/06 20:38 Order name: Wrist Splint; Complete Time: 20:51 kb Administered Medications: 19:43 Drug: Dexamethasone IM 10 mg IM once Route: IM; Site: left deltoid; lg3 20:44 Follow up: Response: No adverse reaction lg3 19:43 Drug: Colcrys PO 1.2 mg PO once Route: PO; lg3 20:44 Follow up: Response: No adverse reaction lg3 Disposition Summary: 01/06/25 20:38 Discharge Ordered Notes: Location: Home kb Condition: Stable kb Diagnosis - Pain in left wrist kb Followup: kb - With: Emergency Department - When: As needed - Reason: Worsening of condition Followup: kb - With: Private Physician - When: 2 - 3 days - Reason: Recheck today's complaints, Continuance of care, Re-evaluation by your physician Discharge Instructions: - Discharge Summary Sheet kb - Musculoskeletal Pain kb Forms: - Medication Reconciliation Form kb - Antibiotic Education kb - Prescription Opioid Use kb - Patient Portal Instructions kb - Leadership Thank You Letter kb Prescriptions: - Prednisone 20 mg Oral Tablet - take 1 tablet ORAL route once daily for 5 days; 5 tablet; Refills: 0, Product kb Selection Permitted - orphenadrine citrate 100 mg Oral Tablet Sustained Release - take 1 tablet ORAL route 2 times per day As needed; 20 tablet; Refills: 0, kb Product Selection Permitted Addendum: 01/08/2025 23:23 Co-signature as Attending Physician, Junior Patel MD I agree with the assessment and c hill plan of care. Signatures: Dispatcher [employer] EDMS Mary Vance, SUSPENDER CUTTER-C SUSPENDER CUTTER-Junior Reid MD MD cha Able, Lacie RN RN lg3 Taylor Salas RN RN cm10 Corrections: (The following items were deleted from the chart) 01/06 17:14 17:14 Wrist Left 3 View+RAD.RAD.BRZ ordered. EDMS EDMS
--- NOTE | 2025-01-06 20:39 | ER ---
Nurse's Notes [facility] Name: Brian Dent Age: 49 yrs Sex: Male : 1975 Arrival Date: 01/06/2025 Time: 16:40 Bed DX3 Private MD: Diagnosis: Pain in left wrist Presentation: 01/06 17:11 Chief complaint: Patient states: Left wrist pain onset 2 days ago. Denies trauma or cm10 injury. Coronavirus screen: Client denies travel out of the [place] in the last 14 days. Ebola Screen: Patient denies travel to an Ebola-affected area in the 21 days before illness onset. Initial Sepsis Screen: Does the patient meet any 2 criteria? No. Patient's initial sepsis screen is negative. Does the patient have a suspected source of infection? No. Patient's initial sepsis screen is negative. Risk Assessment: Do you want to hurt yourself or someone else? Patient reports no desire to harm self or others. Onset of symptoms was January 04, 2025. 17:11 Method Of Arrival: Ambulatory cm10 17:11 Acuity: JACQUIE 4 cm10 Triage Assessment: 17:13 General: Appears in no apparent distress. comfortable, Behavior is calm, cooperative. cm10 Pain: Complains of pain in left wrist Pain does not radiate. Pain currently is 8 out of 10 on a pain scale. Quality of pain is described as sharp, shooting. Neuro: No deficits noted. Level of Consciousness is awake, alert, obeys commands, Oriented to person, place, time, situation, Appropriate for age. Respiratory: No deficits noted. Airway is patent Respiratory effort is even, unlabored, Respiratory pattern is regular, symmetrical. Musculoskeletal: No deficits noted. Reports pain in left wrist. Historical: - Allergies: 17:13 GRAPEFRUIT; cm10 17:13 Ibuprofen; interacts with heart med; cm10 - PMHx: 17:13 Heart condition; Hypercholesterolemia; Hypertensive disorder; Myocardial infarction; cm10 - PSHx: 17:13 Appendectomy; cm10 - Immunization history:: Adult Immunizations up to date. - Infectious Disease History:: Denies. - Social history:: Smoking status: Patient reports the use of cigarette tobacco products, smokes one-half pack cigarettes per day. Screenin:55 [facility] ED Fall Risk Assessment (Adult) History of falling in the last 3 months, lg3 including since admission No falls in past 3 months (0 pts) Confusion or Disorientation No (0 pts) Intoxicated or Sedated No (0 pts) Impaired Gait No (0 pts) Mobility Assist Device Used No (0 pt) Altered Elimination No (0 pt) Score/Fall Risk Level 0 - 2 = Low Risk Oriented to surroundings, Maintained a safe environment, Educated pt \T\ family on fall prevention, incl call for assistance when getting out of bed, Assessed \T\ reinforced patient's understanding of fall precautions. Abuse screen: Denies threats or abuse. Denies injuries from another. Nutritional screening: No deficits noted. Tuberculosis screening: No symptoms or risk factors identified. Assessment: 20:55 General: Appears in no apparent distress. comfortable, Behavior is calm, cooperative. lg3 Pain: Complains of pain in left wrist Pain does not radiate. Neuro: No deficits noted. Valle Agitation-Sedation Scale (RASS): 0 - Alert and Calm Level of Consciousness is awake, alert, obeys commands, Oriented to person, place, time, situation. Cardiovascular: No deficits noted. Denies chest pain, shortness of breath, Capillary refill < 3 seconds Clubbing of nail beds is absent JVD is absent Patient's skin is warm and dry. Respiratory: No deficits noted. Airway is patent Respiratory effort is even, unlabored, Respiratory pattern is regular, symmetrical. GI: No deficits noted. No signs and/or symptoms were reported involving the gastrointestinal system. : No signs and/or symptoms were reported regarding the genitourinary system. EENT: No deficits noted. No signs and/or symptoms were reported regarding the EENT system. Derm: No deficits noted. No signs and/or symptoms reported regarding the dermatologic system. Skin is intact, is healthy with good turgor, Skin is dry, Skin is normal, Skin temperature is warm. Musculoskeletal: Circulation, motion, and sensation intact. Range of motion: intact in all extremities, Reports pain in left wrist. Vital Signs: 17:11 BP 169 / 107; Pulse 81; Resp 15; Temp 98.1; Pulse Ox 98% on R/A; Weight 97.98 kg; cm10 Height 5 ft. 11 in. ; Pain 8/10; 20:55 BP 161 / 91; Pulse 84; Resp 16 S; Temp 98.4(O); Pulse Ox 99% on R/A; lg3 17:11 Body Mass Index 30.13 (97.98 kg, 180.34 cm) cm10 17:11 Pain Scale: Adult cm10 ED Course: 16:44 Patient arrived in ED. al6 16:44 [facility] kb 16:44 Junior Patel MD is Attending Physician. kb 17:13 Triage completed. cm10 17:13 Arm band placed on right wrist. Patient placed in waiting room. cm10 18:42 Wrist Left (3 View) XRAY In Process Unspecified. EDMS 20:55 Patient has correct armband on for positive identification. lg3 20:55 No provider procedures requiring assistance completed. Patient did not have IV access lg3 during this emergency room visit. Velcro wrist splint applied to left wrist. Administered Medications: 19:43 Drug: Dexamethasone IM 10 mg IM once Route: IM; Site: left deltoid; lg3 20:44 Follow up: Response: No adverse reaction lg3 19:43 Drug: Colcrys PO 1.2 mg PO once Route: PO; lg3 20:44 Follow up: Response: No adverse reaction lg3 Medication: 20:55 VIS not applicable for this client. lg3 Outcome: 20:38 Discharge ordered by . kb 20:55 Discharged to home ambulatory, lg3 20:55 Condition: stable 20:55 Discharge instructions given to patient, Instructed on discharge instructions, follow up and referral plans. medication usage, Demonstrated understanding of instructions, follow-up care, medications, splint care, Prescriptions given X 2, 20:57 Patient left the ED. lg3 Signatures: Dispatcher [employer] EDCA Mary Vance FNP-C FNP-Chantell Dejesus, RN RN lg3 Taylor Salas, RN RN cm10 Christel Camara al6
[2025-01-06 21:28] VITALS: BP 161/91; TEMP 98.4; O2SAT 99
== END 2025-01-06 20:57 | disposition home or self-care (01) ==
LOC: ER 16:40
DX: M25.532 Pain in left wrist (principal)
CPT/HCPCS: 96372; 99284; J1100

== ENCOUNTER 2025-08-22 14:55 | Emergency (ER) | payer SELFPAY ==
[2025-08-22] MEDS ORDERED: ONDANSETRON 4 MG (ODT) TAB ONE (15:12)
[2025-08-22 15:42] LABS: Influenza A Ag Negative; Influenza B Ag Negative; SARS-CoV-2 Antigen Rapid Res Negative (Negative)
--- NOTE | 2025-08-22 17:10 | RAD REPORT ---
EXAM: Chest Pa And Lat (2 Views) HISTORY: 49 years Male COUGH COMPARISON: No prior exams FINDINGS: LUNGS/PLEURA: The lungs are clear. No pleural effusions or pneumothorax. No pulmonary edema. CARDIAC/MEDIASTINUM: The cardiac silhouette is within normal limits. UPPER ABDOMEN: No significant abnormality. BONES: No acute abnormality. LINES/TUBES/OTHER: N/A IMPRESSION: No evidence of acute cardiopulmonary disease.
--- NOTE | 2025-08-22 17:13 | EDPHYS ---
Physician Documentation [facility] Name: Brian Dent Age: 49 yrs Sex: Male : 1975 Arrival Date: 08/22/2025 Time: 14:55 Bed DX3 Private MD: ED Physician Mitch Teague HPI: 08/22 15:20 This 49 yrs old Male presents to ER via Ambulatory with complaints of Vomiting. cp 15:20 The patient presents to the emergency department with nausea, that is mild, vomiting, cp that is intermittent. Onset: The symptoms/episode began/occurred 2 day(s) ago. Possible causes: cough, congestion, sore throat. Associated signs and symptoms: Pertinent negatives: abdominal pain, constipation, diarrhea, fever, chest pain. 15:20 Severity of symptoms: in the emergency department the symptoms are unchanged despite cp home interventions. Historical: - Allergies: 15:17 GRAPEFRUIT; hb 15:17 Ibuprofen; interacts with heart med; hb - PMHx: 15:17 Heart condition; Hypercholesterolemia; Hypertensive disorder; Myocardial infarction; hb - PSHx: 15:17 Appendectomy; hb ROS: 15:25 Constitutional: Positive for body aches, Negative for fever, poor PO intake, cp 15:25 Eyes: Negative for injury, pain, redness, and discharge, cp 15:25 ENT: Positive for sore throat, Negative for drainage from ear(s), ear pain, difficulty swallowing, difficulty handling secretions, 15:25 Cardiovascular: Negative for chest pain, edema, palpitations, 15:25 Respiratory: Positive for cough, "sounds productive", Negative for shortness of breath, wheezing, 15:25 Abdomen/GI: Positive for nausea and vomiting, Negative for abdominal pain, diarrhea, constipation, anorexia, 15:25 Neuro: Negative for altered mental status, 15:25 All other systems are negative, Exam: 15:28 Constitutional: The patient appears in no acute distress, alert, awake, cp non-diaphoretic, non-toxic, well developed, well nourished, obese, 15:28 Head/Face: Normocephalic, atraumatic. cp 15:28 Eyes: Periorbital structures: appear normal, Conjunctiva: normal, no exudate, no injection, Sclera: no appreciated abnormality, Lids and lashes: appear normal, bilaterally, 15:28 ENT: External ear(s): are unremarkable, Nose: is normal, Mouth: Lips: moist, Oral mucosa: moist, Posterior pharynx: Airway: no evidence of obstruction, patent, Tonsils: not visualized, erythema, that is moderate, exudate, is not appreciated, 15:28 Neck: ROM/movement: Meningeal signs: are not present, 15:28 Chest/axilla: Inspection: normal, 15:28 Cardiovascular: Rate: normal, Edema: is not appreciated, JVD: is not appreciated, 15:28 Respiratory: the patient does not display signs of respiratory distress, Respirations: normal, no use of accessory muscles, no retractions, labored breathing, is not present, Breath sounds: bronchial sounds, that are mild, are heard diffusely, stridor, is not appreciated, wheezing: is not appreciated, 15:28 Abdomen/GI: Inspection: obese Palpation: abdomen is soft and non-tender, in all quadrants, 15:28 Skin: no rash present. 15:28 Neuro: Orientation: to person, place \\T\\ time. Mentation: is normal, Vital Signs: 15:15 BP 172 / 87; Pulse 89; Resp 18; Temp 97.4; Pulse Ox 98% on R/A; Weight 99.79 kg; Height hb 5 ft. 11 in. ; Pain 0/10; 15:15 Body Mass Index 30.68 (99.79 kg, 180.34 cm) hb 15:15 Pain Scale: Adult hb MDM: 15:14 Medical Screening Exam initiated 15:45 Differential diagnosis: gastritis, viral gastroenteritis, gastroenteritis, influenza, cp strep throat, COVID-19, pneumonia. 17:10 I considered the following discharge prescriptions or medication management in the emergency department Medications were administered in the Emergency Department. See MAR. Independent interpretation of the following test(s) in the Emergency Department X-Ray: My interpretation is chest xray negative for focal pneumonia. 17:12 Data reviewed: vital signs, nurses notes, lab test result(s), and as a result, I will cp discharge patient. 17:12 Care significantly affected by the following chronic conditions: Hypertension, Obesity. Counseling: I had a detailed discussion with the patient and/or guardian regarding the historical points, exam findings, and any diagnostic results supporting the discharge/admit diagnosis, lab results, radiology results. 08/22 15:17 Order name: COVID-19 Ag + Flu A+B Ag; Complete Time: 17:10 cp 08/22 15:17 Order name: Group A Streptococcus Rapid; Complete Time: 17:10 cp 08/22 15:36 Order name: Throat Culture EDMS 08/22 15:17 Order name: XRAY Chest Pa And Lat (2 Views) cp Administered Medications: 15:21 Drug: Ondansetron PO 4 mg PO once Route: PO; hb Disposition: 18:27 Co-signature as Attending Physician, Mitch Teague MD I reviewed the patient's care rn provided by the Advanced Practice Provider and agree with the diagnosis and treatment plan. Disposition Summary: 08/22/25 17:13 Discharge Ordered Notes: Location: Home cp Problem: new cp Symptoms: have improved cp Condition: Stable cp Diagnosis - Acute pharyngitis, unspecified cp - Cough cp - Vomiting cp Followup: cp - With: Private Physician - When: 2 - 3 days - Reason: Worsening of condition Discharge Instructions: - Discharge Summary Sheet cp - Pharyngitis cp - Sore Throat cp - Cough, Adult cp - Vomiting, Adult cp Forms: - Medication Reconciliation Form cp - Antibiotic Education cp - Prescription Opioid Use cp - Patient Portal Instructions cp - Leadership Thank You Letter cp - Work release form [id number] Prescriptions: - Bromfed DM 2-30-10 mg/5 mL Oral syrup - administer 10 milliliter ORAL route every 8 hours as needed for cold symptoms; cp 240 milliliter; Refills: 0, Product Selection Permitted - Zofran 4 mg Oral tablet - take 1 tablet ORAL route every 12 hours As needed; 10 tablet; Refills: 0, cp Product Selection Permitted - Zithromax Z-Dangelo 250 mg Oral Tablet - take 1 tablet ORAL route as directed for 5 days Day 1 - take two (2) tablets cp one time. Day 2, 3, 4 , 5 take one (1) tablet once daily.; 6 tablet; Refills: 0, Product Selection Permitted Signatures: Dispatcher [employer] EDMS Mitch Teague MD MD rn Junior Cardenas, PA-C PA-C cp Stephanie Graff RN RN hb Corrections: (The following items were deleted from the chart) 15:17 15:17 COVID-19 Ag + Flu A+B Ag+I.LAB.BRZ ordered. EDCO EDMS 15:17 15:17 Group A Streptococcus Rapid Sc+I.LAB.BRZ ordered. EDMS EDMS 15: Chest Pa And Lat (2 Views)+RAD.RAD.BRZ ordered. EDMS EDMS
--- NOTE | 2025-08-22 17:13 | ER ---
Nurse's Notes [facility] Name: Brian Dent Age: 49 yrs Sex: Male : 1975 Arrival Date: 08/22/2025 Time: 14:55 Bed DX3 Private MD: Diagnosis: Acute pharyngitis, unspecified;Cough;Vomiting Presentation: 08/22 15:15 Chief complaint: Fatigue, body aches, cough, sore throat, and N/V x 2 days. Coronavirus hb screen: Client presents with at least one sign or symptom that may indicate coronavirus-19. Provider contacted for isolation considerations. Ebola Screen: No symptoms or risks identified at this time. Initial Sepsis Screen: Does the patient meet any 2 criteria? No. Patient's initial sepsis screen is negative. Does the patient have a suspected source of infection? No. Patient's initial sepsis screen is negative. Risk Assessment: Do you want to hurt yourself or someone else? Patient reports no desire to harm self or others. Onset of symptoms was August 20, 2025. 15:15 Method Of Arrival: Ambulatory hb 15:15 Acuity: JACQUIE 4 hb Historical: - Allergies: 15:17 GRAPEFRUIT; hb 15:17 Ibuprofen; interacts with heart med; hb - PMHx: 15:17 Heart condition; Hypercholesterolemia; Hypertensive disorder; Myocardial infarction; hb - PSHx: 15:17 Appendectomy; hb Vital Signs: 15:15 BP 172 / 87; Pulse 89; Resp 18; Temp 97.4; Pulse Ox 98% on R/A; Weight 99.79 kg; Height hb 5 ft. 11 in. ; Pain 0/10; 15:15 Body Mass Index 30.68 (99.79 kg, 180.34 cm) hb 15:15 Pain Scale: Adult hb ED Course: 14:57 Patient arrived in ED. mr 14:58 Junior Cardenas PA-C is PHCP. cp 14:58 Mitch Teague MD is Attending Physician. cp 15:17 Triage completed. hb 15:21 Group A Streptococcus Rapid Sent. hb 15:21 COVID-19 Ag + Flu A+B Ag Sent. hb 15:21 Arm band placed on. hb 17:00 XRAY Chest Pa And Lat (2 Views) In Process Unspecified. EDMS Administered Medications: 15:21 Drug: Ondansetron PO 4 mg PO once Route: PO; hb Outcome: 17:13 Discharge ordered by . sofy 17:25 Patient left the ED. hb Signatures: Dispatcher [employer] EDShira Mccann, Ashish Hinojosa mr Junior Cardenas, Stephanie Rodriguez PA-C, cp, RN RN hb
[2025-08-22 17:37] VITALS: BP 172/87; TEMP 97.4; O2SAT 98
== END 2025-08-22 17:25 | disposition home or self-care (01) ==
LOC: ER 14:55
DX: R11.10 Vomiting, unspecified (principal); R05.9 Cough, unspecified; J02.9 Acute pharyngitis, unspecified; Z11.52 Encounter for screening for COVID-19
CPT/HCPCS: 36415; 71046; 87070; 87428; 99283; Q0162